=== PATIENT | male | born 1940 | race Caucasian/White ===

== ENCOUNTER 2020-08-25 14:45 | Inpatient (IN) | payer MEDICARE ==
--- NOTE | 2020-08-25 15:25 | ED ---
Arrhythmia/Palpitations HPI - General Chief Complaint: Arrhythmia/Palpitations Stated Complaint: cardiac issues Source: patient, EMS Mode of arrival: EMS - History of Present Illness Initial Comments: Marybel is a 80y M resents to the emergency department today as a transfer from an outside facility. Patient reports that he has dealt with heart palpitations and irregular heartbeat for nearly his whole life. He states that over the past few days he's had some shortness of breath and swelling in his legs, he notified his primary care physician Dr. Travis about this and was advised to go to the emergency department for evaluation by cardiology. Patient was evaluated an outside emergency department where he was found to have an irregularly irregular tachycardic. Patient was also noted to have some leukocytosis and elevated troponin. Outside facility did not have cardiology availability therefore patient was transferred here for further evaluation. Patient any any chest pain though he does report feeling some shortness of breath with exertion and lower extremity swelling. - Related Data Allergies Allergy/AdvReac Type Severity Reaction Status Date / Time Zwddeoq-Cig-Hck Reductase Allergy Unknown Verified 08/25/20 15:15 Inhibitor Review of Systems ROS Statement: Those systems with pertinent positive or pertinent negative responses have been documented in the HPI. ROS Other: All systems not noted in ROS Statement are negative. Past Medical History Past Medical History: Diabetes Mellitus, Hyperlipidemia, Hypertension Additional Past Medical History / Comment(s): irregular heart rate, erectile dis function History of Any Multi-Drug Resistant Organisms: None Reported Past Surgical History: Adenoidectomy, Appendectomy, Tonsillectomy Past Psychological History: No Psychological Hx Reported Smoking Status: Never smoker Past Alcohol Use History: Occasional Past Drug Use History: None Reported General Exam - General Exam Comments Initial Comments: Physical Exam GENERAL: Patient is well-developed and well-nourished. Patient is nontoxic and well- hydrated and is in no distress. HENT: Normocephalic, Atraumatic. EYES: PERRL, EOMI PULMONARY: Unlabored respirations. No audible rales rhonchi or wheezing was noted. CARDIOVASCULAR: Irregularly irregular tachycardic ABDOMEN: Soft and nontender with normal bowel sounds. SKIN: Well-healing abrasion on the right lopez : Deferred NEUROLOGIC: Patient is alert and oriented x3. Moving all extremities spontaneously MUSCULOSKELETAL: Normal extremities with adequate strength and full range of motion. No lower extremity swelling or edema. No calf tenderness. PSYCHIATRIC: Normal psychiatric evaluation. Course Vital Signs 08/25/20 08/25/20 14:57 15:12 Temperature 98.0 F Pulse Rate 118 H Pulse Rate [ 115 H Supervisor Policy Change [employer]erks ] Respiratory 18 Rate Blood Pressure 99/86 O2 Sat by Pulse 97 Oximetry EKG Findings - EKG Comments: EKG Findings:: EKG was obtained due to arrhythmia, EKG was obtained at 1500, rate is 114 rhythm is narrow complex irregular rhythm with frequent PVCs, there are no acute ST elevations or depressions no evidence of acute infarction. This is a grossly abnormal rhythm. Medical Decision Making - Medical Decision Making The patient was seen and evaluated, history is obtained from the patient, he wou ld, repeat labs were obtained, patient care was discussed with cardiology on- call Dr. Moore who recommends heparinizing, beta blockers and admission for cardiac monitoring and evaluation. Patient is agreeable to this plan. Disposition Clinical Impression: Atrial fibrillation, Ventricular tachycardia Disposition: ADMITTED IP TO THIS HOSP Condition: Serious Is patient prescribed a controlled substance at d/c from ED?: No Referrals: Hiren Travis MD [Primary Care Provider] - 1-2 days
[2020-08-25 15:28] LABS: HCT 51.6 % (39.0-53.0); MCH 31.1 pg (25.0-35.0); Mean Platelet Volume 9.2; Platelet Count 150 k/uL (150-450); RBC 5.48 m/uL (4.30-5.90)
[2020-08-25] MEDS ORDERED: AMIODARONE 360 MG in DEXTROSE 5% IN WATER 200 ML IV ONE ×2 (15:30)
[2020-08-25 15:39] LABS: ALT 51 U/L (4-49); AST 50 U/L (17-59); African American GFR (CKD) >90 (>60 ml/min/1.73 sqM); Albumin 4.6 g/dL (3.5-5.0); Alkaline Phosphatase 88 U/L (38-126); Anion Gap 11 mmol/L; Blood Urea Nitrogen 25 mg/dL (9-20); Calcium 9.6 mg/dL (8.4-10.2); Carbon Dioxide 26 mmol/L (22-30); Chloride 103 mmol/L (98-107); Glucose 130 mg/dL (74-99); Magnesium 2.1 mg/dL (1.6-2.3); Non-African American GFR(CKD) 79 (>60 ml/min/1.73 sqM); Potassium 4.6 mmol/L (3.5-5.1); Sodium 140 mmol/L (137-145); Total Bilirubin 0.7 mg/dL (0.2-1.3); Total Protein 7.3 g/dL (6.3-8.2)
[2020-08-25 15:50] LABS: Partial Thromboplastin Time 25.6 sec (22.0-30.0); Prothrombin Time 10.6 sec (9.0-12.0)
[2020-08-25 16:01] LABS: Lymphocytes # (M) 13.86 k/uL (1.0-4.8); Monocytes # (M) 0.21 k/uL (0-1.0); Neutrophils # (M) 6.93 k/uL (1.3-7.7); Neutrophils % (M) 33 %; Nucleated Red Blood Cells 0 /100 WBC (0-0); Total Cells Counted 100
[2020-08-25 16:05] LABS: Poikilocytosis (M) Present; Reactive Lymphocytes Present
[2020-08-25] MEDS ORDERED: METOPROLOL TARTRATE 25 MG TAB PO STA (16:21)
[2020-08-25] MEDS ORDERED: HEPARIN SODIUM 1,000 UN/ML (10ML VL) IV PRN (16:41)
[2020-08-25] MEDS ORDERED: HEPARIN SODIUM 1,000 UN/ML (10ML VL) IV ONE (16:41)
[2020-08-25] MEDS ORDERED: HEPARIN SOD,PORK IN 0.45% NACL 25,000 UNIT in 0.45% NACL 1 250ML.BAG IV SCH (16:45)
[2020-08-25] MEDS ORDERED: NALOXONE 0.4 MG/ML 1 ML VIAL IV PRN (16:55)
[2020-08-25] MEDS ORDERED: ACETAMINOPHEN TAB 500 MG TAB PO PRN (20:07)
[2020-08-25] MEDS ORDERED: HYDROcodone/APAP 5-325MG 1 EACH TAB PO PRN (20:07)
[2020-08-25] MEDS ORDERED: ALPRAZolam 0.25 MG TAB PO PRN (20:07)
[2020-08-25 20:31] LABS: Glucose,Whole Blood 115 mg/dL (75-99)
[2020-08-25] MEDS: INSULIN ASPART (NovoLOG) 100 UNIT/ML VIAL SQ SCH (20:44)
--- NOTE | 2020-08-25 20:49 | XR ---
EXAMINATION TYPE: XR chest 1V portable DATE OF EXAM: 08/25/2020 COMPARISON: Earlier same day HISTORY: Chest pain. TECHNIQUE: Single frontal view of the chest is obtained. FINDINGS: There is no focal air space opacity, pleural effusion, or pneumothorax seen. The cardiac silhouette size is mildly enlarged. The osseous structures are intact. IMPRESSION: No acute process.
[2020-08-25] MEDS ORDERED: lisinopriL 20 MG TAB PO SCH (21:00)
[2020-08-25] MEDS: metFORMIN 500 MG TAB PO SCH (21:03)
[2020-08-25] MEDS: ASPIRIN 81 MG PO SCH (21:03)
--- NOTE | 2020-08-25 21:05 | HP ---
HISTORY AND PHYSICAL DATE OF SERVICE: 08/25/2020 CHIEF COMPLAINT: Cardiac arrhythmia. HISTORY OF PRESENT ILLNESS: This 80-year-old gentleman with a past medical history of diabetes, hypertension, hyperlipidemia, adenoidectomy, being followed by Dr. Hiren Travis. The patient previously had an irregular heart rate. Patient evaluated by cardiology. Apparently beta blockers given and the patient improved significantly. Currently the patient complaining of some shortness of breath, palpitation, as well as leg swelling. The patient checked with primary physician and subsequently patient sent to [facility] ED and was evaluated. The patient was suspected to have ventricular tachycardia and the patient was sent to [facility] for further evaluation and treatment. There is no history of fever, rigors. No headache, loss of consciousness, seizures. The current EKG shows apparent sinus mechanism with possible multifocal atrial tachycardia as well as PVCs. There is no history of fever, rigors, chills at this time. PAST MEDICAL HISTORY: Diabetes mellitus, hypertension, hyperlipidemia, history of irregular heartbeat. MEDICATIONS: Glucophage, HydroDIURIL, magnesium oxide, zyloprim,Vasotec. FAMILY HISTORY: No history of heart disease or strokes in the family. SOCIAL HISTORY: No history of smoking. Occasional alcohol intake. REVIEW OF SYSTEMS: ENT: Diminished vision. CARDIOVASCULAR SYSTEM: As mentioned earlier. GI: No nausea or vomiting. : No dysuria. NERVOUS SYSTEM: No numbness or weakness. ALLERGY/IMMUNOLOGY: No asthma or hay fever. MUSCULOSKELETAL: As mentioned earlier. HEMATOLOGY/ONCOLOGY: No history of anemia. DERMATOLOGY: Negative. CONSTITUTIONAL: As mentioned. PHYSICAL EXAMINATION: Alert oriented x3. Pulse 118 and irregular. Blood pressure is 103/67, respirations 18, temperature 98.4, pulse ox 94% on 2 L HEENT: Conjunctivae normal. NECK: Supple. No JVD. CARDIOVASCULAR: S1 and S2 muffled. RESPIRATORY: Breath sounds diminished at the bases. No rhonchi no crackles. ABDOMEN: Soft, nontender, obese. NERVOUS SYSTEM: Higher functions as mentioned. LYMPH: No lymph nodes palpable in the neck, axillae or groin. SKIN: No rash. JOINTS: No active deforming arthropathy. LABS: At this time shows WBC 21, sodium 140, potassium 4.6 and glucose 130. ASSESSMENT: 1. Cardiac arrhythmia, possibly multifocal PACs with PVCs, rule out ventricular tachycardia. 2. Increased WBC. 3. Increased random glucoses, diabetes type 2. 4. Rule out congestive heart failure. 5. Hypertension. 6. Hyperlipidemia. 7. History of adenoidectomy. 8. History of appendectomy. 9. Obesity with body mass of 34. RECOMMENDATIONS: In this 80-year-old gentleman who presented with multiple complex medical issues, we will monitor the patient closely continue the current management and symptomatic treatment. Will initiate beta blockers. Cardiology consultation. Otherwise prognosis guarded because of multiple complex medical issues. Further recommendations to follow. A 2D echo also has been completed and cardiac workup also being planned. Troponins are negative so far. BNP is not available. MMODL / IJN: [id number] /
[2020-08-26 02:46] LABS: Appearance,Urine Clear (Clear); Bilirubin,Urine Negative (Negative); Blood,Urine Negative (Negative); Color,Urine Yellow; Glucose,Urine (UA) Negative (Negative); Ketones,Urine Negative (Negative); Leukocyte Esterase,Urine Negative (Negative); Nitrite,Urine Negative (Negative); Protein,Urine Negative (Negative); Specific Gravity,Urine 1.023 (1.001-1.035); Urobilinogen,Urine <2.0 mg/dL (<2.0)
[2020-08-26 06:00] LABS: Glucose,Whole Blood 105 mg/dL (75-99)
[2020-08-26] MEDS: INSULIN ASPART (NovoLOG) 100 UNIT/ML VIAL SQ SCH ×4 (06:00→20:05)
[2020-08-26 08:12] LABS: HGB 16.8 gm/dL (13.0-17.5); MCH 31.6 pg (25.0-35.0); MCV 95.7 fL (80.0-100.0); Platelet Count 123 k/uL (150-450); RBC 5.33 m/uL (4.30-5.90); RDW 13.1 % (11.5-15.5); WBC 20.6 k/uL (3.8-10.6)
[2020-08-26 08:13] LABS: Partial Thromboplastin Time 29.5 sec (22.0-30.0); Prothrombin Time 10.9 sec (9.0-12.0)
[2020-08-26 08:34] LABS: Calcium 9.5 mg/dL (8.4-10.2); Potassium 5.2 mmol/L (3.5-5.1)
[2020-08-26] MEDS ORDERED: allopurinoL 300 MG TAB PO SCH (09:00)
[2020-08-26] MEDS ORDERED: hydroCHLOROthiazide 25 MG TAB PO SCH (09:00)
[2020-08-26 09:06] LABS: Eosinophils # (M) 0.21 k/uL (0-0.7); Lymphocytes # (M) 12.77 k/uL (1.0-4.8); Monocytes # (M) 1.03 k/uL (0-1.0); Neutrophils % (M) 33 %; Nucleated Red Blood Cells 0 /100 WBC (0-0); Total Cells Counted 200
[2020-08-26] MEDS: MAGNESIUM OXIDE 400 MG TAB PO SCH (09:26)
[2020-08-26] MEDS: metFORMIN 500 MG TAB PO SCH ×2 (09:26→20:13)
[2020-08-26] MEDS: EZETIMIBE 10 MG TAB PO SCH (09:27)
--- NOTE | 2020-08-26 11:38 | ECHOF ---
Referral Reason:chf MEASUREMENTS -------- HEIGHT: 182.9 cm WEIGHT: 120.7 kg BP: 103/57 IVSd: 1.3 cm (0.6 - 1.1) LVIDd: 4.5 cm (3.9 - 5.3) LVPWd: 1.5 cm (0.6 - 1.1) IVSs: 1.5 cm LVIDs: 3.6 cm LVPWs: 1.3 cm LAESV Index (A-L): 45.45 ml/m Ao Diam: 4.1 cm (2.0 - 3.7) AV Cusp: 1.9 cm (1.5 - 2.6) LA Diam: 4.9 cm (2.7 - 3.8) RAP: 5.00 mmHg RVSP: 49.47 mmHg FINDINGS -------- Undetermined rhythm. This was a technically adequate study. Morbid Obesity The left ventricular size is normal. There is mild concentric left ventricular hypertrophy. Overa ll left ventricular systolic function is mildly impaired with, an EF between 45 - 50 %. The right ventricle is normal in size. LA is severely dilated >40 ml/m2 The right atrial size is normal. There is mild aortic valve sclerosis. Mild mitral annular calcification present. Mild mitral regurgitation is present. Mild tricuspid regurgitation present. Right ventricular systolic pressure is normal at < 35 mmHg. There is no pulmonic regurgitation present. The aortic root size is normal. There is no pericardial effusion. CONCLUSIONS -------- 1. The left ventricular size is normal. 2. There is mild concentric left ventricular hypertrophy. 3. Overall left ventricular systolic function is mildly impaired with, an EF between 45 - 50 %. 4. The right ventricle is normal in size. 5. LA is severely dilated >40 ml/m2 6. The right atrial size is normal. 7. There is mild aortic valve sclerosis. 8. Mild mitral annular calcification present. 9. Mild mitral regurgitation is present. 10. Mild tricuspid regurgitation present. 11. The aortic root size is normal. 12. There is no pericardial effusion. [employer]: Delia Sanches RDCS
[2020-08-26 11:45] LABS: Glucose,Whole Blood 119 mg/dL (75-99)
--- NOTE | 2020-08-26 12:01 | P.CRDCN ---
<Anabell Bertrand Armando - Last Filed: 08/26/20 12:00> History of Present Illness Consult date: 08/26/20 History of present illness: HISTORY OF PRESENT ILLNESS: This is a 80-year-old male with a past medical history significant for irregular heart rhythm, hyperlipidemia, and hypertension. Patient used to follow in the office with Dr. Mallory but has not been seen in the office since 2014. We have been asked to see the patient in consultation for arrhythmia. Patient examined at the bedside. Patient states he has had an irregular heart rhythm all of his life and has been pretty much asymptomatic with it. He states he has had multiple EKGs in the past and a Holter monitor which have never shown evidence of atrial fibrillation. He states about a month ago he developed some shortness of breath with exertion which was new for him. He also reports this weekend he felt palpitations worse than normal. He states he went to see his primary care physician on Tuesday who did an EKG and was concerned she was having ventricular tachycardia and possibly atrial fibrillation. He went to the hospital near his [facility] and was transferred to [facility] for further evaluation. Patient currently denies chest pain or pressure. He denies shortness of breath. Currently denies palpitations. Patient states he used to be on a beta christiane secondary to his irregular heart rhythm. He states this was weaned off a couple years ago. He does report when he was on a beta christiane his heart rate was low when he was sleeping. Patient states he has never been worked up for sleep apnea but he believes he probably has it. EKG reveals sinus mechanism with PVCs and bursts of multifocal atrial tachycardia Chest xray negative for acute process Laboratory data: WBC 20.6. Hemoglobin 16.8. Platelet count 123. Sodium 138. Potassium 5.2. BUN 25. Creatinine 1.01. Troponin 0.027. BNP 629. Current home cardiac medications include aspirin 81 mg daily, hydrochlorothi azide 25 mg daily, Zetia 10 mg daily, and enalapril 10 mg daily Most recent echocardiogram obtained in 2013 revealed ejection fraction 60% with mild tricuspid regurgitation and mild mitral regurgitation REVIEW OF SYSTEMS: At the time of my exam: CONSTITUTIONAL: Denies fever or chills. HEENT: Denies blurred vision, vision changes, or eye pain. Denies hemoptysis CARDIOVASCULAR: Denies chest pain. Denies orthopnea. Denies PND. Denies palpitations RESPIRATORY: Denies shortness of breath. GASTROINTESTINAL: Denies abdominal pain. Denies nausea or vomiting. HEMATOLOGIC: Denies bleeding disorders. GENITOURINARY: Denies any blood in urine. SKIN: Denies pruitis. Denies rash. PHYSICAL EXAM: VITAL SIGNS: Reviewed. GENERAL: Well-developed in no acute distress. HEENT: Head is normocephalic. Pupils are equal, round. Sclerae anicteric. Mucous membranes of the mouth are moist. Neck supple. No JVD or thyromegaly LUNGS: Respirations even and unlabored. Lungs essentially clear to auscultation bilaterally. HEART: Irregular rate and rhythm. S1 and S2 heard. ABDOMEN: Soft. Nondistended. Nontender. EXTREMITIES: Normal range of motion. No clubbing or cyanosis. Peripheral pulses intact. No lower extremity edema NEUROLOGIC: Awake and alert. Oriented x 3. ASSESSMENT: Cardiac arrhythmia, sinus mechanism with PVCs and multifocal atrial tachycardia Leukocytosis Hypertension Hyperlipidemia Diabetes mellitus PLAN: Check TSH Continue home cardiac medications No beta christiane therapy at this time Discontinue IV heparin Obtain 2D echo to assess cardiac structure and function If decreased EF, will consider coronary angiogram tomorrow. Nothing by mouth at midnight Further recommendations pending patient course Nurse practitioner note has been reviewed by physician. Signing provider agrees with the documented findings, assessment, and plan of care. Past Medical History Past Medical History: Diabetes Mellitus, Deep Vein Thrombosis (DVT), Hyperlipidemia, Hypertension Additional Past Medical History / Comment(s): DVT - 1996, irregular heart rhythm History of Any Multi-Drug Resistant Organisms: None Reported Past Surgical History: Adenoidectomy, Appendectomy, Tonsillectomy Past Psychological History: No Psychological Hx Reported Smoking Status: Never smoker Past Alcohol Use History: Occasional Past Drug Use History: None Reported Medications and Allergies Home Medications Medication Instructions Recorded Confirmed Type Aspirin EC [Ecotrin Low Dose] 81 mg PO HS 08/25/20 08/25/20 History Enalapril Maleate [Vasotec] 10 mg PO HS 08/25/20 08/25/20 History Ezetimibe [Zetia] 10 mg PO DAILY 08/25/20 08/25/20 History Magnesium Oxide [Mag-Ox] 400 mg PO DAILY 08/25/20 08/25/20 History allopurinoL [Zyloprim] 300 mg PO DAILY 08/25/20 08/25/20 History hydroCHLOROthiazide [Hydrodiuril] 25 mg PO DAILY 08/25/20 08/25/20 History metFORMIN HCL ER [Glucophage Xr] 500 mg PO BID 08/25/20 08/25/20 History Allergies Allergy/AdvReac Type Severity Reaction Status Date / Time [id number] Reductase AdvReac "muscle Verified 08/25/20 16:23 Inhibitor pain/soreness" Physical Exam Vitals: Vital Signs Temp Pulse Pulse Resp BP BP Pulse Ox 08/26/20 08:00 97.9 F 49 L 16 146/71 93 L 08/26/20 03:58 97.9 F 57 L 18 103/57 98 08/26/20 00:58 54 L 16 08/25/20 23:22 98.1 F 54 L 16 116/69 95 08/25/20 20:00 75 16 08/25/20 19:01 98.4 F 75 16 119/74 99 08/25/20 18:22 73 18 103/67 93 L 08/25/20 17:50 97.7 F 69 18 120/50 93 L 08/25/20 17:28 118 H 18 103/67 94 L 08/25/20 16:28 106 H 18 129/98 96 08/25/20 15:12 115 H 08/25/20 14:57 98.0 F 118 H 18 99/86 97 Intake and Output 08/25/20 08/26/20 08/26/20 22:59 06:59 14:59 Output Total 200 Balance -200 Output: Urine 200 Other: Voiding Method Toilet Toilet # Voids 0 1 Weight 120.202 kg 120.7 kg Results 08/26/20 07:27 08/26/20 07:27 Cardiac Enzymes 08/25/20 08/25/20 Range/Units 15:15 15:15 AST 50 (17-59) U/L Troponin I 0.027 (0.000-0.034) ng/mL Coagulation 08/25/20 08/26/20 08/26/20 Range/Units 15:15 00:17 07:27 PT 10.6 10.9 (9.0-12.0) sec APTT 25.6 43.3 H 29.5 (22.0-30.0) sec CBC 08/25/20 08/26/20 Range/Units 15:15 07:27 WBC 21.0 H 20.6 H (3.8-10.6) k/uL RBC 5.48 5.33 (4.30-5.90) m/uL Hgb 17.0 16.8 (13.0-17.5) gm/dL Hct 51.6 51.0 (39.0-53.0) % Plt Count 150 123 L (150-450) k/uL Comprehensive Metabolic Panel 08/25/20 08/26/20 Range/Units 15:15 07:27 Sodium 140 138 (137-145) mmol/L Potassium 4.6 5.2 H (3.5-5.1) mmol/L Chloride 103 102 (98-107) mmol/L Carbon Dioxide 26 29 (22-30) mmol/L BUN 25 H 25 H (9-20) mg/dL Creatinine 0.93 1.01 (0.66-1.25) mg/dL Glucose 130 H 119 H (74-99) mg/dL Calcium 9.6 9.5 (8.4-10.2) mg/dL AST 50 (17-59) U/L ALT 51 H (4-49) U/L Alkaline Phosphatase 88 (38-126) U/L Total Protein 7.3 (6.3-8.2) g/dL Albumin 4.6 (3.5-5.0) g/dL Current Medications Generic Name Dose Route Start Last Admin Trade Name Freq PRN Reason Stop Dose Admin Acetaminophen 500 mg 08/25/20 20:07 Acetaminophen Tab 500 Mg Tab PO Q6HR PRN Fever and/ or Pain Hydrocodone Bitart/Acetaminophen 1 each 08/25/20 20:07 Hydrocodone/Apap 5-325mg 1 Each Tab PO Q6HR PRN Pain Allopurinol 300 mg 08/26/20 09:00 Allopurinol 300 Mg Tab PO DAILY LUIS Alprazolam 0.25 mg 08/25/20 20:07 Alprazolam 0.25 Mg Tab PO TID PRN Anxiety Aspirin 81 mg 08/25/20 21:00 08/25/20 21:03 Aspirin 81 Mg PO 81 mg HS LUIS Administration Ezetimibe 10 mg 08/26/20 09:00 Ezetimibe 10 Mg Tab PO DAILY [facility] Heparin Sodium (Porcine) 0 unit 08/25/20 16:41 Heparin Sodium 1,000 Un/Ml (10ml Vl) IV PER PROTOCOL PRN Low PTT Protocol Hydrochlorothiazide 25 mg 08/26/20 09:00 Hydrochlorothiazide 25 Mg Tab PO DAILY [facility] Heparin Sodium/Sodium Chloride 250 mls @ 9.989 mls/hr 08/25/20 16:45 08/25/20 18:14 25,000 unit/ Sodium Chloride IV 8.31 units/kg/hr .Q24H [facility]IS 9.989 mls/hr Administration Protocol 8.31 UNITS/KG/HR Insulin Aspart 0 unit 08/25/20 21:00 08/26/20 06:00 Insulin Aspart (Novolog) 100 Unit/Ml Vial SQ Not Given ACHS [facility] Protocol Lisinopril 20 mg 08/25/20 21:00 08/25/20 21:03 Lisinopril 20 Mg Tab PO 20 mg HS LUIS Administration Magnesium Oxide 400 mg 08/26/20 09:00 Magnesium Oxide 400 Mg Tab PO DAILY [facility] Metformin HCl 500 mg 08/25/20 21:00 08/25/20 21:03 Metformin 500 Mg Tab PO 500 mg BID LUIS Administration Naloxone HCl 0.2 mg 08/25/20 16:55 Naloxone 0.4 Mg/Ml 1 Ml Vial IV Q2M PRN Opioid Reversal Intake and Output 08/25/20 08/26/20 08/26/20 22:59 06:59 14:59 Output Total 200 Balance -200 Output: Urine 200 Other: Voiding Method Toilet Toilet # Voids 0 1 Weight 120.202 kg 120.7 kg 08/26/20 07:27 08/26/20 07:27 <Tristan Moore - Last Filed: 08/28/20 19:14> History of Present Illness History of present illness: Recurrent bursts of atrial tachycardia Frequent PVCs Hypertension Diabetes Dyslipidemia Cardio myopathy Plan coronary angiography Medical treatment with oral amiodarone for suppression of arrhythmia Past Medical History - Past Family History Mother Family Medical History: Congestive Heart Failure (CHF) Father Family Medical History: CVA/TIA Physical Exam Vitals: Vital Signs Temp Pulse Resp BP BP Pulse Ox 08/28/20 16:05 66 149/73 91 L 08/28/20 15:05 97.9 F 71 153/82 93 L 08/28/20 14:05 71 165/84 92 L 08/28/20 14:00 20 08/28/20 13:35 63 130/74 90 L 08/28/20 13:05 65 144/81 90 L 08/28/20 12:50 103 H 176/77 92 L 08/28/20 12:35 78 163/112 94 L 08/28/20 12:20 98 F 71 20 167/101 94 L 08/28/20 08:00 98.5 F 65 18 150/89 93 L 08/28/20 04:00 98.2 F 69 20 169/85 92 L 08/28/20 01:47 71 20 08/27/20 23:58 97.8 F 71 20 109/47 92 L 08/27/20 20:00 98.5 F 87 18 133/83 94 L Intake and Output 08/28/20 08/28/20 08/28/20 06:59 14:59 22:59 Intake Total 340 240 Output Total 400 350 Balance -400 -10 240 Intake: IV 100 Oral 240 240 Output: Urine 400 350 Other: Voiding Method Toilet Toilet # Voids 1 Weight 119.2 kg Results 08/28/20 15:44 08/28/20 15:44 Cardiac Enzymes 08/28/20 Range/Units 15:44 AST 51 (17-59) U/L Coagulation 08/28/20 Range/Units 17:44 PT 11.1 (9.0-12.0) sec APTT 24.6 (22.0-30.0) sec CBC 08/28/20 Range/Units 15:44 WBC 20.0 H (3.8-10.6) k/uL RBC 5.29 (4.30-5.90) m/uL Hgb 16.1 (13.0-17.5) gm/dL Hct 50.9 (39.0-53.0) % Plt Count 151 (150-450) k/uL Comprehensive Metabolic Panel 08/28/20 Range/Units 15:44 Sodium 139 (137-145) mmol/L Potassium 5.4 H (3.5-5.1) mmol/L Chloride 101 (98-107) mmol/L Carbon Dioxide 30 (22-30) mmol/L BUN 21 H (9-20) mg/dL Creatinine 1.14 (0.66-1.25) mg/dL Glucose 121 H (74-99) mg/dL Calcium 9.2 (8.4-10.2) mg/dL AST 51 (17-59) U/L ALT 58 H (4-49) U/L Alkaline Phosphatase 65 (38-126) U/L Total Protein 6.4 (6.3-8.2) g/dL Albumin 3.9 (3.5-5.0) g/dL Current Medications Generic Name Dose Route Start Last Admin Trade Name Freq PRN Reason Stop Dose Admin Acetaminophen 500 mg 08/25/20 20:07 Acetaminophen Tab 500 Mg Tab PO Q6HR PRN Fever and/ or Pain Hydrocodone Bitart/Acetaminophen 1 each 08/25/20 20:07 Hydrocodone/Apap 5-325mg 1 Each Tab PO Q6HR PRN Pain Allopurinol 300 mg 08/26/20 21:00 08/27/20 19:47 Allopurinol 300 Mg Tab PO 300 mg HS LUIS Administration Alprazolam 0.25 mg 08/25/20 20:07 Alprazolam 0.25 Mg Tab PO TID PRN Anxiety Alprazolam 0.25 mg 08/27/20 11:58 Alprazolam 0.25 Mg Tab PO Q6HR PRN Mild Anxiety Alprazolam 0.5 mg 08/27/20 11:58 Alprazolam 0.5 Mg Tab PO Q6HR PRN Moderate Anxiety Amiodarone HCl 200 mg 08/27/20 09:06 08/28/20 16:35 Amiodarone 200 Mg Tab PO 200 mg TID LUIS Administration Aspirin 81 mg 08/25/20 21:00 08/27/20 19:47 Aspirin 81 Mg PO 81 mg HS LUIS Administration Aspirin 325 mg 08/29/20 05:00 Aspirin 325 Mg Tab PO 08/29/20 05:01 ONCE ONE Atorvastatin Calcium 10 mg 08/29/20 05:00 Atorvastatin 10 Mg Tab PO 08/29/20 05:01 ONCE ONE Calcium Chloride 1,000 mg 08/29/20 05:00 Calcium Chloride 100 Mg/Ml 10 Ml Syringe IVP 08/29/20 05:01 ONCE ONE Chlorhexidine Gluconate 15 ml 08/29/20 05:00 Chlorhexidine Gluconate 15 Ml Cup MUCOUS MEM 08/29/20 05:01 ONCE ONE Ezetimibe 10 mg 08/26/20 09:00 08/28/20 05:50 Ezetimibe 10 Mg Tab PO 10 mg DAILY [facility] Administration Furosemide 40 mg 08/27/20 09:00 08/28/20 04:26 Furosemide 40 Mg Tab PO Not Given DAILY [facility] Heparin Sodium (Porcine) 5,000 unit 08/26/20 21:00 08/28/20 05:49 Heparin Sodium,Porcine/Pf 5,000 Unit/0.5 Ml Syringe SQ 5,000 unit Q12HR [facility] Administration Heparin Sodium (Porcine) 10,000 unit 08/29/20 05:00 Heparin Sodium 1,000 Un/Ml (10ml Vl) IV 08/29/20 05:01 ONCE ONE Heparin Sodium (Porcine) 30,000 unit 08/29/20 05:00 Heparin Sodium,Porcine 30 Ml 1,000 Unit/Ml Vial IV 08/29/20 05:01 ONCE ONE Heparin Sodium (Porcine) 30,000 unit 08/29/20 05:00 Heparin Sodium,Porcine 30 Ml 1,000 Unit/Ml Vial IV 08/29/20 05:01 ONCE ONE Heparin Sodium (Porcine) 30,000 unit 08/29/20 05:00 Heparin Sodium,Porcine 30 Ml 1,000 Unit/Ml Vial IV 08/29/20 05:01 ONCE ONE Heparin Sodium (Porcine) 10, 1,001 mls @ 999 mls/hr 08/28/20 07:00 000 unit/ Sodium Chloride IRRIGATION 08/28/20 23:00 ONCE PRN INTRA-OP Heparin Sodium (Porcine) 2,500 250.5 mls @ 250 mls/hr 08/28/20 07:00 unit/ Sodium Chloride IRRIGATION 08/28/20 23:00 ONCE PRN INTRA-OP Heparin Sodium (Porcine) 5,000 501 mls @ 0 mls/hr 08/29/20 05:00 unit/ Sodium Chloride IV 08/29/20 05:01 ONCE ONE As Directed Protamine Sulfate 250 mg/ IV 25 mls @ 0 mls/hr 08/29/20 05:00 Solution IV 08/29/20 05:01 ONCE ONE As Directed Nitroglycerin/Dextrose 50 mg/ 250 mls @ 1.5 mls/hr 08/29/20 05:00 IV Solution IV .Q24H [facility] Protocol 5 MCG/MIN Albumin Human 50 ml/ IV 50 mls @ 100 mls/hr 08/29/20 05:00 Solution IVPB 08/29/20 05:29 ONCE ONE Albumin Human 50 ml/ IV 50 mls @ 100 mls/hr 08/29/20 05:00 Solution IVPB 08/29/20 05:29 ONCE ONE Clevidipine 25 mg/ IV Solution 50 mls @ 2 mls/hr 08/29/20 05:00 IV .Q24H [facility] Protocol 1 MG/HR Phenylephrine HCl 40 mg/ 254 mls @ 0 mls/hr 08/29/20 05:00 Sodium Chloride IV 08/29/20 05:01 .Q0M ONE Protocol Per Protocol Albumin Human 500 ml/ IV 500 mls @ 250 mls/hr 08/29/20 05:00 Solution IVPB 08/29/20 06:59 ONCE ONE Albumin Human 500 ml/ IV 500 mls @ 250 mls/hr 08/29/20 05:00 Solution IVPB 08/29/20 06:59 ONCE ONE Albumin Human 500 ml/ IV 500 mls @ 250 mls/hr 08/29/20 05:00 Solution IVPB 08/29/20 06:59 ONCE ONE Albumin Human 500 ml/ IV 500 mls @ 250 mls/hr 08/29/20 05:00 Solution IVPB 08/29/20 06:59 ONCE ONE Albumin Human 500 ml/ IV 500 mls @ 250 mls/hr 08/29/20 05:00 Solution IVPB 08/29/20 06:59 ONCE ONE Albumin Human 500 ml/ IV 500 mls @ 250 mls/hr 08/29/20 05:00 Solution IVPB 08/29/20 06:59 ONCE ONE Norepinephrine Bitartrate 4 mg 254 mls @ 0 mls/hr 08/29/20 05:00 / Sodium Chloride IV .Q0M [facility] Protocol Titrate Propofol 1,000 mg/ IV Solution 100 mls @ 0 mls/hr 08/29/20 05:00 IV .Q0M PRN Per Protocol Protocol Titrate Lactated Ringer's 1,000 mls @ 10 mls/hr 08/29/20 05:00 Lactated Ringers IV .Q24H [facility] Cefazolin Sodium 2 gm/ Sodium 50 mls @ 100 mls/hr 08/29/20 05:00 Chloride IVPB 08/29/20 05:29 ONCE ONE Cefazolin Sodium 1,000 mg/ 1,000 mls @ 999 mls/hr 08/29/20 05:00 Sodium Chloride IRRIGATION 08/29/20 06:00 ONCE ONE Cefazolin Sodium 2 gm/ Sodium 50 mls @ 100 mls/hr 08/29/20 05:00 Chloride IVPB 08/29/20 05:29 ONCE ONE Sodium Bicarbonate 20 ml/ 1,033.5 mls @ 0 mls/hr 08/29/20 06:00 Lidocaine HCl 270 mg/ Plegisol PERFUSION 08/29/20 06:01 Cardioplegic Solution .Q0M NR Protocol Per Protocol Tranexamic Acid 2,000 mg/ 200 mls @ 0 mls/hr 08/29/20 05:00 Sodium Chloride IV 08/29/20 05:01 .Q0M ONE Protocol Per Protocol Papaverine HCl 360 mg/ Sodium 102 mls @ 0 mls/hr 08/29/20 05:00 Chloride IV 08/29/20 05:01 ONCE ONE As Directed Insulin Human Regular 100 unit 100 mls @ 0 mls/hr 08/29/20 06:00 / Sodium Chloride IV 08/29/20 06:01 .Q0M [facility] Protocol Titrate Insulin Aspart 0 unit 08/25/20 21:00 08/28/20 18:42 Insulin Aspart (Novolog) 100 Unit/Ml Vial SQ Not Given ACHS [facility] Protocol Magnesium Oxide 400 mg 08/26/20 09:00 08/28/20 05:49 Magnesium Oxide 400 Mg Tab PO 400 mg DAILY [facility] Administration Magnesium Sulfate 16.24 meq 08/29/20 05:00 Magnesium Sulfate Syg 4.06 Meq/Ml Syringe IV 08/29/20 05:01 ONCE ONE Mannitol 12.5 gm 08/29/20 05:00 Mannitol 25% 12.5 Gm/50 Ml Vial IV 08/29/20 05:01 ONCE ONE Mannitol 12.5 gm 08/29/20 05:00 Mannitol 25% 12.5 Gm/50 Ml Vial IV 08/29/20 05:01 ONCE ONE Miscellaneous Information 1 each 08/28/20 12:12 Rx Info: Iv Contrast Was Given 1 Each Misc MISCELLANE 08/30/20 12:12 DAILY PRN Per Protocol Mupirocin 1 applic 08/29/20 09:00 Mupirocin 2% Oint 22 Gm Tube NASAL 09/02/20 09:01 BID LUIS Naloxone HCl 0.2 mg 08/25/20 16:55 Naloxone 0.4 Mg/Ml 1 Ml Vial IV Q2M PRN Opioid Reversal Nitroglycerin 0.4 mg 08/27/20 11:58 Nitroglycerin Sl Tabs 0.4 Mg Tab SUBLINGUAL Q5M PRN Chest Pain Nitroglycerin/Dextrose 1 mg 08/29/20 05:00 Nitroglycerin-D5w Pmx 25 Mg/250 Ml Btl IV 08/29/20 05:01 ONCE ONE Phenylephrine HCl 0 mg 08/29/20 06:00 Phenylephrine 10 Mg/Ml Vial IV 08/29/20 06:01 ONCE ONE Protamine Sulfate 250 mg 08/29/20 05:00 Protamine Sulfate 10 Mg/Ml 25 Ml Vial IV 08/29/20 05:01 ONCE ONE Sodium Bicarbonate 50 ml 08/29/20 05:00 Sodium Bicarb 8.4% 50 Ml Syr (1 Meq/Ml) IV 08/29/20 05:01 ONCE ONE Intake and Output 08/28/20 08/28/20 08/28/20 06:59 14:59 22:59 Intake Total 340 240 Output Total 400 350 Balance -400 -10 240 Intake: IV 100 Oral 240 240 Output: Urine 400 350 Other: Voiding Method Toilet Toilet # Voids 1 Weight 119.2 kg 08/28/20 15:44 08/28/20 15:44
[2020-08-26 16:42] LABS: Glucose,Whole Blood 106 mg/dL (75-99)
[2020-08-26 20:00] LABS: Glucose,Whole Blood 110 mg/dL (75-99)
[2020-08-26] MEDS: allopurinoL 300 MG TAB PO SCH (20:13)
[2020-08-26] MEDS: ASPIRIN 81 MG PO SCH (20:13)
--- NOTE | 2020-08-26 20:36 | P.PN ---
Subjective 74-year-old male was admitted secondary to arrhythmia which appears to be either multifocal atrial tachycardia PVCs no evidence of atrial fibrillation. Patient had auto mantra in the past which did not show any evidence of A. fib either. Patient was on IV heparin which was discontinued. Patient had EF of around 45- 50% does appear to have my live pedal edema patient will be switched from hydrochlorothiazide to Lasix. Patient is also on ROWAN inhibitor with high normal potassium. Will repeat potassium again after starting him on low potassium diet if it continues to be elevated related to either cut down the dose or discontinue ROWAN inhibitor at that time. Constitutional: Denied any fatigue denied any fever. Cardio vascular: denied any chest pain, palpitations Gastrointestinal denied any nausea vomiting Pulmonary: Denied any shortness of breath cough Neurologic denied any new focal deficits All inpatient medications were reviewed and appropriate changes in these medications as dictated in the interval history and assessment and plan. PHYSICAL EXAMINATION: GENERAL: The patient is alert and oriented x3, not in any acute distress. Well developed, well nourished. HEENT: Pupils are round and equally reacting to light. EOMI. No scleral icterus. No conjunctival pallor. Normocephalic, atraumatic. No pharyngeal erythema. No th yromegaly. CARDIOVASCULAR: S1 and S2 present. No murmurs, rubs, or gallops. PULMONARY: Chest is clear to auscultation, no wheezing or crackles. ABDOMEN: Soft, nontender, nondistended, normoactive bowel sounds. No palpable organomegaly. MUSCULOSKELETAL: No joint swelling or deformity. EXTREMITIES: No cyanosis, clubbing, bilateral bilateral pitting pedal edema NEUROLOGICAL: Gross neurological examination did not reveal any focal deficits. SKIN: No rashes. Assessment and plan -Multifocal atrial tachycardia .IV heparin was discontinued as there is no evidence of atrial fibrillation and patient was started on subcutaneous heparin for DVT prophylaxis. Patient's TSH is within normal limits -Hypertension next and-hyperlipidemia - type 2 diabetes mellitus metformin will be discontinued and patient will be started on sliding scale insulin along with his other home regimen -Congestive heart failure chronic systolic dysfunction EF of around 45-50% with mild acute exacerbation patient will be switched to Lasix from hydrochlorothiazide -Hyperkalemia secondary to ROWAN inhibitor patient was started on low potassium diet if potassium doesn't improve we need to discontinue ROWAN inhibitor at the time DVT prophylaxis: Subcutaneous heparin- Objective - Vital Signs Vital signs: Vital Signs Temp 98.1 F 08/26/20 16:00 Pulse 87 08/26/20 16:00 Resp 16 08/26/20 16:00 BP 134/73 08/26/20 11:51 Pulse Ox 90 L 08/26/20 11:51 Intake & Output 08/26/20 08/26/20 08/27/20 06:59 18:59 06:59 Intake Total 394.663 Output Total 200 Balance -200 394.663 Weight 120.7 kg Intake: Intake, IV Titration 154.663 Amount Heparin Sod,Pork in 0.45% 154.663 NaCl 25,000 unit In 0.45 % NaCl 1 250ml.bag @ 8.31 UNITS/KG/HR 9.989 mls/hr IV .Q24H [facility] Rx#: [id number] Oral 240 Output: Urine 200 Other: Voiding Method Toilet # Voids 3 # Bowel Movements 1 - Labs CBC & Chem 7: 08/26/20 07:27 08/26/20 07:27 Labs: Abnormal Lab Results - Last 24 Hours (Table) 08/25/20 08/26/20 08/26/20 Range/Units 20:30 00:17 05:58 WBC (3.8-10.6) k/uL Plt Count (150-450) k/uL Lymphocytes # (Manual) (1.0-4.8) k/uL Monocytes # (Manual) (0-1.0) k/uL APTT 43.3 H (22.0-30.0) sec Potassium (3.5-5.1) mmol/L BUN (9-20) mg/dL Glucose (74-99) mg/dL POC Glucose (mg/dL) 115 H 105 H (75-99) mg/dL 08/26/20 08/26/20 08/26/20 Range/Units 07:27 07:27 11:43 WBC 20.6 H (3.8-10.6) k/uL Plt Count 123 L (150-450) k/uL Lymphocytes # (Manual) 12.77 H (1.0-4.8) k/uL Monocytes # (Manual) 1.03 H (0-1.0) k/uL APTT (22.0-30.0) sec Potassium 5.2 H (3.5-5.1) mmol/L BUN 25 H (9-20) mg/dL Glucose 119 H (74-99) mg/dL POC Glucose (mg/dL) 119 H (75-99) mg/dL 08/26/20 08/26/20 Range/Units 16:31 19:58 WBC (3.8-10.6) k/uL Plt Count (150-450) k/uL Lymphocytes # (Manual) (1.0-4.8) k/uL Monocytes # (Manual) (0-1.0) k/uL APTT (22.0-30.0) sec Potassium (3.5-5.1) mmol/L BUN (9-20) mg/dL Glucose (74-99) mg/dL POC Glucose (mg/dL) 106 H 110 H (75-99) mg/dL
[2020-08-26] MEDS: HEPARIN SODIUM,PORCINE/PF 5,000 UNIT/0.5 ML SYRINGE SQ SCH (20:54)
[2020-08-26] MEDS ORDERED: INSULIN ASPART (NovoLOG) 100 UNIT/ML VIAL SQ SCH (21:00)
[2020-08-26 22:26] LABS: Potassium 4.6 mmol/L (3.5-5.1)
[2020-08-27] MEDS: INSULIN ASPART (NovoLOG) 100 UNIT/ML VIAL SQ SCH ×4 (06:07→22:04)
[2020-08-27 06:09] LABS: Glucose,Whole Blood 106 mg/dL (75-99)
[2020-08-27 07:43] LABS: HGB 16.6 gm/dL (13.0-17.5); MCHC 32.6 g/dL (31.0-37.0); MCV 95.1 fL (80.0-100.0); Mean Platelet Volume 9.2; Platelet Count 153 k/uL (150-450); RBC 5.36 m/uL (4.30-5.90); RDW 13.2 % (11.5-15.5); WBC 18.5 k/uL (3.8-10.6)
[2020-08-27 08:01] LABS: Calcium 9.7 mg/dL (8.4-10.2)
[2020-08-27] MEDS: FUROSEMIDE 40 MG TAB PO SCH (09:30)
[2020-08-27] MEDS: EZETIMIBE 10 MG TAB PO SCH (09:30)
[2020-08-27] MEDS: AMIODARONE 200 MG TAB PO SCH ×3 (09:30→19:47)
[2020-08-27] MEDS: HEPARIN SODIUM,PORCINE/PF 5,000 UNIT/0.5 ML SYRINGE SQ SCH ×2 (09:30→19:48)
[2020-08-27] MEDS: MAGNESIUM OXIDE 400 MG TAB PO SCH (09:30)
[2020-08-27 11:51] LABS: Glucose,Whole Blood 134 mg/dL (75-99)
--- NOTE | 2020-08-27 11:57 | P.PN ---
Subjective Progress Note Date: 08/27/20 HISTORY OF PRESENT ILLNESS: This is a 80-year-old male with a past medical history significant for irregular heart rhythm, hyperlipidemia, and hypertension. Patient used to follow in the office with Dr. Mallory but has not been seen in the office since 2014. We have been asked to see the patient in consultation for arrhythmia. Patient examined at the bedside. Patient states he has had an irregular heart rhythm all of his life and has been pretty much asymptomatic with it. He states he has had multiple EKGs in the past and a Holter monitor which have never shown evidence of atrial fibrillation. He states about a month ago he developed some shortness of breath with exertion which was new for him. He also reports this weekend he felt palpitations worse than normal. He states he went to see his primary care physician on Tuesday who did an EKG and was concerned she was having ventricular tachycardia and possibly atrial fibrillation. [facility] to the hospital [facility] and was transferred to [facility] for further evaluation. Patient currently denies chest pain or pressure. He denies shortness of breath. Currently denies palpitations. Patient states he used to be on a beta christiane secondary to his irregular heart rhythm. He states this was weaned off a couple years ago. He does report when he was on a beta christiane his heart rate was low when he was sleeping. Patient states he has never been worked up for sleep apnea but he believes he probably has it. EKG reveals sinus mechanism with PVCs and bursts of multifocal atrial tachycardia Chest xray negative for acute process Laboratory data: WBC 20.6. Hemoglobin 16.8. Platelet count 123. Sodium 138. Potassium 5.2. BUN 25. Creatinine 1.01. Troponin 0.027. BNP 629. Current home cardiac medications include aspirin 81 mg daily, hydrochlorothiazide 25 mg daily, Zetia 10 mg daily, and enalapril 10 mg daily Most recent echocardiogram obtained in 2013 revealed ejection fraction 60% with mild tricuspid regurgitation and mild mitral regurgitation 08/27/2020 Patient examined this morning at the bedside. He denies chest pain or pressure. Denies shortness of breath. Telemetry reveals sinus mechanism with PVCs and bursts of multifocal atrial tachycardia. A cardiogram completed revealed ejection fraction 45-50% mild mitral regurgitation and mild tricuspid regurgitation. TSH within normal limits. PHYSICAL EXAM: VITAL SIGNS: Reviewed. GENERAL: Well-developed in no acute distress. HEENT: Head is normocephalic. Pupils are equal, round. Sclerae anicteric. Mucous membranes of the mouth are moist. Neck supple. No JVD or thyromegaly LUNGS: Respirations even and unlabored. Lungs essentially clear to auscultation bilaterally. HEART: Irregular rate and rhythm. S1 and S2 heard. ABDOMEN: Soft. Nondistended. Nontender. EXTREMITIES: Normal range of motion. No clubbing or cyanosis. Peripheral pulses intact. No lower extremity edema NEUROLOGIC: Awake and alert. Oriented x 3. ASSESSMENT: Cardiac arrhythmia, sinus mechanism with PVCs and multifocal atrial tachycardia Leukocytosis Hypertension Hyperlipidemia Diabetes mellitus PLAN: Continue home cardiac medications No beta christiane therapy at this time Begin amiodarone 200 mg 3 times a day Patient will undergo cardiac catheterization tomorrow with Dr. Dietz Further recommendations pending patient course Nurse practitioner note has been reviewed by physician. Signing provider agrees with the documented findings, assessment, and plan of care. Objective - Vital Signs Vital signs: Vital Signs Temp 98.4 F 08/27/20 07:40 Pulse 80 08/27/20 11:40 Resp 18 08/27/20 11:40 BP 126/61 08/27/20 11:40 Pulse Ox 91 L 08/27/20 11:40 Intake & Output 08/26/20 08/27/20 08/27/20 18:59 06:59 18:59 Intake Total 394.663 600 0 Output Total 500 Balance 394.663 100 0 Weight 120.1 kg Intake: Intake, IV Titration 154.663 Amount Heparin Sod,Pork in 0.45% 154.663 NaCl 25,000 unit In 0.45 % NaCl 1 250ml.bag @ 8.31 UNITS/KG/HR 9.989 mls/hr IV .Q24H [facility] Rx#: [id number] Oral 240 600 0 Output: Urine 500 Other: Voiding Method Toilet # Voids 3 1 # Bowel Movements 1 - Labs CBC & Chem 7: 08/27/20 06:54 08/27/20 06:54 Labs: Abnormal Lab Results - Last 24 Hours (Table) 08/26/20 08/26/20 08/27/20 Range/Units 16:31 19:58 06:07 WBC (3.8-10.6) k/uL BUN (9-20) mg/dL Glucose (74-99) mg/dL POC Glucose (mg/dL) 106 H 110 H 106 H (75-99) mg/dL 08/27/20 08/27/20 Range/Units 06:54 06:54 WBC 18.5 H (3.8-10.6) k/uL BUN 26 H (9-20) mg/dL Glucose 119 H (74-99) mg/dL POC Glucose (mg/dL) (75-99) mg/dL
[2020-08-27] MEDS ORDERED: NITROGLYCERIN SL TABS 0.4 MG TAB SUBLINGUAL PRN (11:58)
[2020-08-27] MEDS ORDERED: ALPRAZolam 0.5 MG TAB PO PRN (11:58)
[2020-08-27] MEDS ORDERED: ALPRAZolam 0.25 MG TAB PO PRN (11:58)
--- NOTE | 2020-08-27 14:14 | P.PN ---
Subjective 74-year-old male was admitted secondary to arrhythmia which appears to be either multifocal atrial tachycardia PVCs no evidence of atrial fibrillation. Patient had auto mantra in the past which did not show any evidence of A. fib either. Patient was on IV heparin which was discontinued. Patient had EF of around 45- 50% does appear to have my live pedal edema patient will be switched from hydrochlorothiazide to Lasix. Patient is also on ROWAN inhibitor with high normal potassium. Will repeat potassium again after starting him on low potassium diet if it continues to be elevated related to either cut down the dose or discontinue ROWAN inhibitor at that time. 08/27/2020 Patient doesn't have any more palpitations at this time. 3 because the decreased ejection fraction cardiology is contemplating radical catheterization tomorrow to rule out any coronary vascular disease. Constitutional: Denied any fatigue denied any fever. Cardio vascular: denied any chest pain, palpitations Gastrointestinal denied any nausea vomiting Pulmonary: Denied any shortness of breath cough Neurologic denied any new focal deficits All inpatient medications were reviewed and appropriate changes in these medications as dictated in the interval history and assessment and plan. PHYSICAL EXAMINATION: GENERAL: The patient is alert and oriented x3, not in any acute distress. Well developed, well nourished. HEENT: Pupils are round and equally reacting to light. EOMI. No scleral icterus. No conjunctival pallor. Normocephalic, atraumatic. No pharyngeal erythema. No thyromegaly. CARDIOVASCULAR: S1 and S2 present. No murmurs, rubs, or gallops. PULMONARY: Chest is clear to auscultation, no wheezing or crackles. ABDOMEN: Soft, nontender, nondistended, normoactive bowel sounds. No palpable organomegaly. MUSCULOSKELETAL: No joint swelling or deformity. EXTREMITIES: No cyanosis, clubbing, does have bilateral pitting pedal edema NEUROLOGICAL: Gross neurological examination did not reveal any focal deficits. SKIN: No rashes. Assessment and plan -Multifocal atrial tachycardia .IV heparin was discontinued as there is no evidence of atrial fibrillation and patient was started on subcutaneous heparin for DVT prophylaxis. Patient's TSH is within normal limits -Hypertension next and-hyperlipidemia - type 2 diabetes mellitus metformin will be discontinued and patient will be started on sliding scale insulin along with his other home regimen -Congestive heart failure chronic systolic dysfunction EF of around 45-50% with mild acute exacerbation patient will be switched to Lasix from hydrochlorothiazide -Hyperkalemia secondary to ROWAN inhibitor patient was started on low potassium diet if potassium doesn't improve we need to discontinue ROWAN inhibitor at the time DVT prophylaxis: Subcutaneous heparin- Objective - Vital Signs Vital signs: Vital Signs Temp 98.4 F 08/27/20 07:40 Pulse 80 08/27/20 11:40 Resp 18 08/27/20 11:40 BP 126/61 08/27/20 11:40 Pulse Ox 91 L 08/27/20 11:40 Intake & Output 08/26/20 08/27/20 08/27/20 18:59 06:59 18:59 Intake Total 394.663 600 240 Output Total 500 Balance 394.663 100 240 Weight 120.1 kg Intake: Intake, IV Titration 154.663 Amount Heparin Sod,Pork in 0.45% 154.663 NaCl 25,000 unit In 0.45 % NaCl 1 250ml.bag @ 8.31 UNITS/KG/HR 9.989 mls/hr IV .Q24H [facility] Rx#: [id number] Oral 240 600 240 Output: Urine 500 Other: Voiding Method Toilet # Voids 3 1 # Bowel Movements 1 - Labs CBC & Chem 7: 08/27/20 06:54 08/27/20 06:54 Labs: Abnormal Lab Results - Last 24 Hours (Table) 08/26/20 08/26/20 08/27/20 Range/Units 16:31 19:58 06:07 WBC (3.8-10.6) k/uL BUN (9-20) mg/dL Glucose (74-99) mg/dL POC Glucose (mg/dL) 106 H 110 H 106 H (75-99) mg/dL 08/27/20 08/27/20 08/27/20 Range/Units 06:54 06:54 11:49 WBC 18.5 H (3.8-10.6) k/uL BUN 26 H (9-20) mg/dL Glucose 119 H (74-99) mg/dL POC Glucose (mg/dL) 134 H (75-99) mg/dL
[2020-08-27 16:54] LABS: Glucose,Whole Blood 108 mg/dL (75-99)
[2020-08-27] MEDS: allopurinoL 300 MG TAB PO SCH (19:47)
[2020-08-27] MEDS: ASPIRIN 81 MG PO SCH (19:47)
[2020-08-27 20:30] LABS: Glucose,Whole Blood 127 mg/dL (75-99)
[2020-08-27] MEDS ORDERED: SODIUM CHLORIDE 0.9% 1,000 ML in EMPTY BAG 1 BAG IV ONE (23:00)
[2020-08-28] MEDS: FUROSEMIDE 40 MG TAB PO SCH (04:26)
[2020-08-28] MEDS: INSULIN ASPART (NovoLOG) 100 UNIT/ML VIAL SQ SCH ×4 (04:57→21:32)
[2020-08-28] MEDS: HEPARIN SODIUM,PORCINE/PF 5,000 UNIT/0.5 ML SYRINGE SQ SCH ×2 (05:49→21:32)
[2020-08-28] MEDS: MAGNESIUM OXIDE 400 MG TAB PO SCH (05:49)
[2020-08-28] MEDS: AMIODARONE 200 MG TAB PO SCH ×3 (05:49→21:32)
[2020-08-28] MEDS: EZETIMIBE 10 MG TAB PO SCH (05:50)
[2020-08-28 06:05] LABS: Glucose,Whole Blood 105 mg/dL (75-99)
[2020-08-28] MEDS ORDERED: ATORVASTATIN 80 MG TAB PO ONE (07:00)
[2020-08-28] MEDS ORDERED: HEPARIN SODIUM,PORCINE 10,000 UNIT in SODIUM CHLORIDE 0.9% 1,000 ML IRRIGATION PRN (07:00)
[2020-08-28] MEDS ORDERED: ASPIRIN 325 MG TAB PO ONE (07:00)
[2020-08-28] MEDS ORDERED: HEPARIN SODIUM,PORCINE 2,500 UNIT in SODIUM CHLORIDE 0.9% 250 ML IRRIGATION PRN (07:00)
[2020-08-28] MEDS ORDERED: VERAPAMIL 2.5 MG/ML 2 ML AMP ONE (10:51)
[2020-08-28] MEDS ORDERED: LIDOCAINE 1% INJ 10MG/ML (20 ML MDV) ONE (10:51)
[2020-08-28] MEDS ORDERED: fentaNYL (PF) 50 MCG/ML 2 ML AMP ONE (10:52)
[2020-08-28] MEDS ORDERED: SODIUM CHLORIDE 0.9% 500 ML 500 ML IV ONE (11:05)
[2020-08-28] MEDS ORDERED: fentaNYL (PF) 50 MCG/ML 2 ML AMP IV ONE (11:41)
[2020-08-28] MEDS ORDERED: LIDOCAINE 1% INJ 10MG/ML (20 ML MDV) SQ ONE (11:44)
[2020-08-28] MEDS ORDERED: MIDAZOLAM 2 MG/2 ML VIAL IV ONE (11:45)
[2020-08-28] MEDS ORDERED: VERAPAMIL SYRINGE (5 MG/10 ML) INTRAARTER ONE (11:46)
[2020-08-28] MEDS ORDERED: HEPARIN SODIUM 1,000 UN/ML (10ML VL) IV ONE (12:00)
[2020-08-28] MEDS ORDERED: IOPAMIDOL-370 125ML BTL INJ ONE (12:01)
[2020-08-28] MEDS ORDERED: RX INFO: IV CONTRAST WAS GIVEN 1 EACH MISC MISCELLANE PRN (12:12)
[2020-08-28] MEDS ORDERED: SODIUM CHLORIDE 0.9% 1,000 ML IV SCH (12:15)
[2020-08-28 12:29] LABS: Glucose,Whole Blood 102 mg/dL (75-99)
[2020-08-28] MEDS ORDERED: lisinopriL 5 MG TAB PO SCH ×2 (12:34→21:00)
--- NOTE | 2020-08-28 14:47 | P.PN ---
Subjective 74-year-old male was admitted secondary to arrhythmia which appears to be either multifocal atrial tachycardia PVCs no evidence of atrial fibrillation. Patient had auto mantra in the past which did not show any evidence of A. fib either. Patient was on IV heparin which was discontinued. Patient had EF of around 45- 50% does appear to have my live pedal edema patient will be switched from hydrochlorothiazide to Lasix. Patient is also on ROWAN inhibitor with high normal potassium. Will repeat potassium again after starting him on low potassium diet if it continues to be elevated related to either cut down the dose or discontinue ROWAN inhibitor at that time. 08/27/2020 Patient doesn't have any more palpitations at this time. because the decreased ejection fraction cardiology is contemplating radical catheterization tomorrow to rule out any coronary vascular disease. 08/28/2020 Patient had cardiac catheterization which showed occlusion of couple of coronary vessels executors are not available as I do not have the cath reported this time. Cardiology recommended evaluation by thoracic surgery for the coronary artery bypass grafting. Patient doesn't have any chest pain. Constitutional: Denied any fatigue denied any fever. Cardio vascular: denied any chest pain, palpitations Gastrointestinal denied any nausea vomiting Pulmonary: Denied any shortness of breath cough Neurologic denied any new focal deficits All inpatient medications were reviewed and appropriate changes in these medications as dictated in the interval history and assessment and plan. PHYSICAL EXAMINATION: GENERAL: The patient is alert and oriented x3, not in any acute distress. Well developed, well nourished. HEENT: Pupils are round and equally reacting to light. EOMI. No scleral icterus. No conjunctival pallor. Normocephalic, atraumatic. No pharyngeal erythema. No thyromegaly. CARDIOVASCULAR: S1 and S2 present. No murmurs, rubs, or gallops. PULMONARY: Chest is clear to auscultation, no wheezing or crackles. ABDOMEN: Soft, nontender, nondistended, normoactive bowel sounds. No palpable organomegaly. MUSCULOSKELETAL: No joint swelling or deformity. EXTREMITIES: No cyanosis, clubbing, does have bilateral pitting pedal edema NEUROLOGICAL: Gross neurological examination did not reveal any focal deficits. SKIN: No rashes. Assessment and plan -Multifocal atrial tachycardia .IV heparin was discontinued as there is no evidence of atrial fibrillation and patient was started on subcutaneous heparin for DVT prophylaxis. Patient's TSH is within normal limits -Hypertension -hyperlipidemia - type 2 diabetes mellitus metformin will be discontinued and patient will be started on sliding scale insulin along with his other home regimen -Congestive heart failure chronic systolic dysfunction EF of around 45-50% with mild acute exacerbation patient is presently on Lasix. Patient heart failure is new, because of which patient had cardiac catheterization which showed coronary artery occlusion and will need CABG. -Hyperkalemia improved now DVT prophylaxis: Subcutaneous heparin- Objective - Vital Signs Vital signs: Vital Signs Temp 98 F 08/28/20 12:20 Pulse 65 08/28/20 08:00 Resp 20 08/28/20 12:20 BP 163/112 08/28/20 12:35 Pulse Ox 94 L 08/28/20 12:35 Intake & Output 08/27/20 08/28/20 08/28/20 18:59 06:59 18:59 Intake Total 480 340 Output Total 400 350 Balance 480 -400 -10 Weight 119.2 kg Intake: IV 100 Oral 480 240 Output: Urine 400 350 Other: Voiding Method Toilet Toilet # Voids 2 1 - Labs CBC & Chem 7: 08/27/20 06:54 08/27/20 06:54 Labs: Abnormal Lab Results - Last 24 Hours (Table) 08/27/20 08/27/20 08/28/20 Range/Units 16:52 20:17 05:56 POC Glucose (mg/dL) 108 H 127 H 105 H (75-99) mg/dL 08/28/20 Range/Units 12:27 POC Glucose (mg/dL) 102 H (75-99) mg/dL
[2020-08-28] MEDS ORDERED: MD COMMUNICATION TO PHARMACY 1 EACH MISC PO ONE ×3 (14:50→14:57)
--- NOTE | 2020-08-28 15:13 | P.GSCN ---
History of Present Illness Consult date: 08/28/20 Reason for Consult: Coronary artery disease, surgical revascularization recommendations Requesting physician: Angelica Dietz History of present illness: This is a 80-year-old gentleman who follows on an outpatient basis with Dr. Hiren Travis for primary care. He has a previous medical history of heart palpitations, hypertension, hyperlipidemia, wxk-[id number]-soqzvoefh diabetes, left lower extremity DVT with anticoagulation for approximately 1 year, rheumatic fever, questionable obstructive sleep apnea without official diagnosis, and obesity. Apparently this gentleman has been experiencing heart palpitations for many many years, he has worn a Holter monitor many times and has had several EKGs without any significant findings. He was treated by Dr. Suzette sol 5-6 years ago with Lopressor which was eventually stopped due to bradycardia. In December 2018 the patient admits to shortness of breath with exertion when shoveling snow. He did have a stress test without any identifiable problem per the patient but states he was told if he ever experience shortness of breath again he should be seen. His last week he began to experience shortness of breath and lower extremity edema. He was seen by his primary care physician who did an EKG demonstrating arrhythmia and the patient was recommended to report to the emergency room. Initially he reported to [facility], but there was no clothing sorter in the hospital so he was transported to [facility]. By the time he got here the patient reported no shortness of breath, decreased lower extremity edema. EKG demonstrated atrial tachycardia with occasional PVCs. Lab work revealed white blood cell count 21, BUN 25, creatinine 0.93, BNP 629, troponin negative, TSH 1.68. Chest x-ray demonstrated no acute process. The patient was admitted for evaluation and treatment with consultation placed to Dr. Moore. Workup included a transthoracic echocardiogram demonstrating mildly impaired left ventricular systolic function with EF 45-50%, dilated left atrium, mild mitral regurgitation with mild MAC, and mild tricuspid regurgitation. He was recommended to undergo heart catheterization was completed today and which demonstrated RCA stenosis 100%, circumflex stenosis 50%, and proximal LAD stenosis 95%. Due to these findings consultation placed to cardiothoracic surgery for revascularization recommendations. Review of Systems Review of systems was completed was negative except as noted - Cardiovascular Reports as per HPI, Reports decreased exercise tolerance, Reports dyspnea on exertion, Reports leg edema, Reports palpitations, Reports shortness of breath Past Medical History Past Medical History: Diabetes Mellitus, Deep Vein Thrombosis (DVT), Hyperlipidemia, Hypertension Additional Past Medical History / Comment(s): DVT - 1996, irregular heart rhythm, rheumatic fever History of Any Multi-Drug Resistant Organisms: None Reported Past Surgical History: Adenoidectomy, Appendectomy, Tonsillectomy Past Psychological History: No Psychological Hx Reported Smoking Status: Never smoker Past Alcohol Use History: Rare Past Drug Use History: None Reported - Past Family History Mother Family Medical History: Congestive Heart Failure (CHF) Father Family Medical History: CVA/TIA Medications and Allergies Home Medications Medication Instructions Recorded Confirmed Type Aspirin EC [Ecotrin Low Dose] 81 mg PO HS 08/25/20 08/25/20 History Enalapril Maleate [Vasotec] 10 mg PO HS 08/25/20 08/25/20 History Ezetimibe [Zetia] 10 mg PO DAILY 08/25/20 08/25/20 History Magnesium Oxide [Mag-Ox] 400 mg PO DAILY 08/25/20 08/25/20 History allopurinoL [Zyloprim] 300 mg PO DAILY 08/25/20 08/25/20 History hydroCHLOROthiazide [Hydrodiuril] 25 mg PO DAILY 08/25/20 08/25/20 History metFORMIN HCL ER [Glucophage Xr] 500 mg PO BID 08/25/20 08/25/20 History Allergies Allergy/AdvReac Type Severity Reaction Status Date / Time [id number] Reductase AdvReac "muscle Verified 08/25/20 16:23 Inhibitor pain/soreness" Surgical - Exam Vital Signs Temp Pulse Resp BP Pulse Ox 98.0 F 118 H 18 99/86 97 08/25/20 14:57 08/25/20 14:57 08/25/20 14:57 08/25/20 14:57 08/25/20 14:57 CONSTITUTIONAL: Awake and alert, appears comfortable, cooperative, well- developed, well-nourished, no pain, no acute distress EYES: Pupils equal, round, reactive to light, normal ocular movement ENT: Moist mucous membranes without oral lesions present NECK: No masses, no bruits, trachea midline RESPIRATORY: Lungs sounds clear to auscultation bilaterally. Respirations even, nonlabored. Currently on room air with oxygen saturation 94%. Strong cough. No chest wall deformities. No clubbing or cyanosis present CARDIOVASCULAR: S1, S2 present. Irregular rate and rhythm, sinus rhythm PVCs on telemetry. Palpable peripheral pulses bilaterally. Trace bilateral lower extremity edema present. No calf pain or tenderness noted. No significant lower extremity varicosities noted. GASTROINTESTINAL: Abdomen soft, round, nontender, nondistended without masses or organomegaly noted. There is no rebound or guarding present. Active bowel sounds present 4 quadrants. GENITOURINARY: Deferred INTEGUMENTARY: Skin is warm and dry with evidence of good perfusion. NEUROLOGIC: Cranial nerves II through XII intact, normal coordination, no obvious motor or sensory deficits, speech is normal MUSKULOSKELETAL: Able to move all extremities, strength equal bilaterally, normal posture PSYCHIATRIC: Alert and oriented to person place and time, appropriate affect, intact judgment and insight Results - Labs 08/27/20 06:54 08/27/20 06:54 Abnormal Lab Results - Last 24 Hours (Table) 08/27/20 08/27/20 08/28/20 Range/Units 16:52 20:17 05:56 POC Glucose (mg/dL) 108 H 127 H 105 H (75-99) mg/dL 08/28/20 Range/Units 12:27 POC Glucose (mg/dL) 102 H (75-99) mg/dL - Imaging Chest x-ray: report reviewed, image reviewed EKG: image reviewed Additional studies: Heart catheterization films reviewed Assessment and Plan Assessment: 1. Coronary artery disease 2. Heart palpitations 3. Hypertension 4. Hyperlipidemia 5. Xxe-ipqvapk-sdbhlbeco diabetes 6. Left lower extremity DVT with anticoagulation for approximately 1 year 7. Rheumatic fever 8. Questionable obstructive sleep apnea without official diagnosis 9. Obesity Plan: The patient was seen and examined at the bedside with Dr. Mullen. Charts S diagnostics reviewed, heart catheterization films were reviewed with Dr. Mullen. The usual perioperative course of open heart surgery was discussed in detail with the patient and his , risks and benefits were reviewed, all questions were answered. The patient did consent to proceed with surgery. Preoperative testing was initiated. Barring any major red flags our plan is for off-pump coronary artery bypass surgery with left internal mammary artery and endoscopic vein harvesting, left atrial appendage ligation tomorrow, 08/29/[address] Mullen. The patient will be nothing by mouth after midnight. Beta christiane will not be given as it is contraindicated due to bradycardia per Dr. Moore. Continue aspirin, Zetia, Lasix. Once testing has been completed we will calculate STS risk score and discussed with the patient. We'll perform 5 m walk test. More recommendations to follow. Thank you Dr. Dietz for this consult. We look forward to working with you in the care of your patient. Time with Patient: Greater than 30
--- NOTE | 2020-08-28 15:23 | CC ---
CARDIAC CATHETERIZATION REPORT Mr. Urias is a 80-year-old male with known history of hypertension, hyperlipidemia, diabetes mellitus, who presented with symptoms of palpitation was noted to have frequent ventricular ectopic activity and mild impairment of left ventricular systolic function. He was evaluated by Dr. Moore. Recommendation made regarding cardiac catheterization. The procedure as well as the risks and the complications were discussed with the patient who is in full understanding and agreement. PROCEDURE: Patient was brought to cath lab manager in a fasting semisedated state, after receiving fentanyl and Benadryl and achieving moderate conscious state, using Xylocaine anesthesia and Seldinger technique, a 6-Senegalese sheath was introduced in the right radial artery. Selective right and left coronary angiography performed using 5-Senegalese 3.5 bend left Briana and 6-Senegalese 5 bend right Briana catheter images of the coronary artery including hemiaxial views were obtained. The right Briana was used to cross the aortic valve and left ventricular end-diastolic pressure was calculated. Following that, catheter and sheath were removed. Hemostasis was obtained with deployment of a TR band. There was no immediate complication. Patient returned to his room in stable condition. Of note, the patient received 5000 units of intravenous heparin as well as intra-arterial verapamil. He had severe tortuosity in the right subclavian artery. FINDINGS: FLUOROSCOPY: There was severe calcification involving all the coronary arteries. CORONARY ANGIOGRAM: LEFT MAIN: This is a large-sized vessel, bifurcating into left circumflex, left anterior descending artery, left main artery has no evidence of high-grade stenosis. LEFT ANTERIOR DESCENDING ARTERY: This is a large-sized vessel reaching towards the apex with a wraparound apex segment giving rise to a large diagonal branch proximally at the takeoff of the diagonal branch, the left anterior descending artery has a complex lesion with stenosis up to 90%. The rest of the vessel is large in caliber and has no evidence of high-grade stenosis. LEFT CIRCUMFLEX: This is a nondominant vessel giving rise to 2 obtuse marginal branches. The proximal segment of the left circumflex has a 40% to 50%. plaque. The rest of the vessel has no high-grade stenosis. RIGHT CORONARY ARTERY: This vessel is totally occluded proximally with no antegrade flow. COLLATERALS: There is bridging collaterals from the left coronary system toward the RCA feeding the RCA in the PDA and PLV. LEFT VENTRICULOGRAM: Left ventriculogram not performed. HEMODYNAMICS: There was no gradient across the aortic valve. The left ventricle end-diastolic pressure was 12-16 mmHg. CONCLUSION: 1. Calcified coronary arteries. 2. Chronically occluded right coronary artery. 3. Critical stenosis involving the proximal left anterior descending coronary artery. 4. Mild disease in left circumflex. 5. Collaterals to the right coronary artery from the left coronary system. RECOMMENDATIONS: In view of findings and anatomy and the history of diabetes, I would recommend to proceed with evaluation for coronary artery bypass grafting with bypass to the LAD and the right coronary artery. Those findings and recommendations were discussed with the patient and his over the phone and they are in full understanding and agreement. Duration of sedation is 20 minutes. MMODL / IJN: [id number] /
--- NOTE | 2020-08-28 15:26 | LTR ---
DATE OF SERVICE: 08/28/[address] Travis: I had the pleasure of performing cardiac catheterization on Mr. Urias at [facility] on August 28 and a full copy of procedure note will be forwarded to you. In brief, he was found to have a chronically occluded right coronary artery with critical stenosis in the left anterior descending artery and based on those findings, I have recommended proceeding with evaluation for coronary artery bypass grafting. I will keep you updated on his progress. Thank you again for allowing me to participate in his care. Please feel free to call for any questions. Sincerely, ANTWON / INDYN: [id number] /
--- NOTE | 2020-08-28 16:14 | US ---
EXAMINATION TYPE: US carotid duplex BILAT DATE OF EXAM: 08/28/2020 COMPARISON: NONE CLINICAL HISTORY: preop cardiac surgery. Pre cabg EXAM MEASUREMENTS: RIGHT: Peak Systolic Velocity (PSV) cm/sec ----- Right CCA: 47.2 ----- Right ICA: 72.3 ----- Right ECA: 54.2 ICA/CCA ratio: 1.5 RIGHT: End Diastole cm/sec ----- Right CCA: 10.9 ----- Right ICA: 21.9 ----- Right ECA: 0.0 LEFT: Peak Systolic Velocity (PSV) cm/sec ----- Left CCA: 52.9 ----- Left ICA: 81.4 ----- Left ECA: 53.7 ICA/CCA ratio: 1.5 LEFT: End Diastole cm/sec ----- Left CCA: 8.9 ----- Left ICA: 18.0 ----- Left ECA: 0.0 VERTEBRALS (direction of flow): Right Vertebral: Antegrade Left Vertebral: Antegrade Rhythm: Arrhythmia Moderate atherosclerotic plaque visualized in common carotid artery bifurcations. No significant enrrique nosis. No elevated velocities . IMPRESSION: 1. No evidence of hemodynamically significant stenosis of the bilateral internal carotid arteries. Th ere is less than 50% stenosis. There is moderate atherosclerotic plaque at the bilateral common carot id artery bifurcations. Criteria for Assigning % of Stenosis / Diameter reduction (Estimation based on the indirect measurements of the internal carotid artery velocities (ICA PSV). 1. Normal (no stenosis)=ICA PSV < 125 cm/s: ratio < 2.0: ICA EDV<40 cm/s. 2. Less than 50% stenosis=ICA PSV < 125 cm/s: ratio < 2.0: ICA EDV<40 cm/s. 3. 50 to 69% stenosis=ICA PSV of 125 to 230 cm/s: ration 2.0 ? 4.0: ICA EDV 40-100 cm/s. 4. Greater than 70% stenosis to near occlusion= ICA PSV > 230 cm/s: ratio > 4.0: ICA EDV > 100 cm/s. 5. Near occlusion= ICA PSV velocities may be low or undetectable: variable ratio and ICA EDV. 6. Total occlusion=unable to detect flow.
[2020-08-28 16:38] LABS: HCT 50.9 % (39.0-53.0); HGB 16.1 gm/dL (13.0-17.5); MCH 30.5 pg (25.0-35.0); MCHC 31.7 g/dL (31.0-37.0); MCV 96.2 fL (80.0-100.0); Platelet Count 151 k/uL (150-450); RBC 5.29 m/uL (4.30-5.90); RDW 13.6 % (11.5-15.5)
[2020-08-28 16:40] LABS: Glucose,Whole Blood 119 mg/dL (75-99)
[2020-08-28 16:41] LABS: Albumin 3.9 g/dL (3.5-5.0); Calcium 9.2 mg/dL (8.4-10.2); Magnesium 2.1 mg/dL (1.6-2.3); Potassium 5.4 mmol/L (3.5-5.1); Total Bilirubin 0.8 mg/dL (0.2-1.3); Total Protein 6.4 g/dL (6.3-8.2)
[2020-08-28 17:08] LABS: Neutrophils % (M) 26 %; Nucleated Red Blood Cells 0 /100 WBC (0-0); Total Cells Counted 100
[2020-08-28 18:07] LABS: Partial Thromboplastin Time 24.6 sec (22.0-30.0); Prothrombin Time 11.1 sec (9.0-12.0)
[2020-08-28 20:28] LABS: Glucose,Whole Blood 101 mg/dL (75-99)
[2020-08-28] MEDS: allopurinoL 300 MG TAB PO SCH (21:31)
[2020-08-28] MEDS: ASPIRIN 81 MG PO SCH (21:32)
[2020-08-28 23:59] LABS: Hemoglobin A1C 6.4 % (4.0-6.0)
[2020-08-29 02:00] LABS: Chol/HDL Ratio 5.24
[2020-08-29 03:50] LABS: Hepatitis A Antibody IgM Non-Reactive (Non-Reactive); Hepatitis B Core IgM Non-Reactive (Non-Reactive); Hepatitis B Surface Antigen Non-Reactive (Non-Reactive); Hepatitis C IgG Antibody Non-Reactive (Non-Reactive)
[2020-08-29] MEDS ORDERED: NOREPINEPHRINE 4 MG in SODIUM CHLORIDE 0.9% 250 ML IV SCH (05:00)
[2020-08-29] MEDS ORDERED: HEPARIN SODIUM,PORCINE 5,000 UNIT in SODIUM CHLORIDE 0.9% 500 ML 500 ML IV ONE (05:00)
[2020-08-29] MEDS ORDERED: ATORVASTATIN 10 MG TAB PO ONE (05:00)
[2020-08-29] MEDS ORDERED: ALBUMIN HUMAN 5% 500 ML in EMPTY BAG 1 BAG IVPB ONE ×6 (05:00)
[2020-08-29] MEDS ORDERED: MAGNESIUM SULFATE SYG 4.06 MEQ/ML SYRINGE IV ONE (05:00)
[2020-08-29] MEDS ORDERED: HEPARIN SODIUM 1,000 UN/ML (10ML VL) IV ONE (05:00)
[2020-08-29] MEDS ORDERED: PHENYLEPHRINE 40 MG in SODIUM CHLORIDE 0.9% 250 ML IV ONE (05:00)
[2020-08-29] MEDS ORDERED: CHLORHEXIDINE GLUCONATE 15 ML CUP MUCOUS MEM ONE (05:00)
[2020-08-29] MEDS ORDERED: TRANEXAMIC ACID 2,000 MG in SODIUM CHLORIDE 0.9% 80 ML IV ONE (05:00)
[2020-08-29] MEDS ORDERED: NITROGLYCERIN-D5W PMX 50 MG in DEXTROSE/WATER 1 250ML.BAG IV SCH (05:00)
[2020-08-29] MEDS ORDERED: CLEVIDIPINE BUTYRATE 25 MG in EMPTY BAG 1 BAG IV SCH ×2 (05:00→12:23)
[2020-08-29] MEDS ORDERED: PROTAMINE SULFATE 250 MG in EMPTY BAG 1 BAG IV ONE (05:00)
[2020-08-29] MEDS ORDERED: MANNITOL 25% 12.5 GM/50 ML VIAL IV ONE ×2 (05:00)
[2020-08-29] MEDS ORDERED: NITROGLYCERIN-D5W PMX 25 MG/250 ML BTL IV ONE (05:00)
[2020-08-29] MEDS ORDERED: ASPIRIN 325 MG TAB PO ONE (05:00)
[2020-08-29] MEDS ORDERED: CALCIUM CHLORIDE 100 MG/ML 10 ML SYRINGE IVP ONE (05:00)
[2020-08-29] MEDS ORDERED: ceFAZolin 1,000 MG in SODIUM CHLORIDE 0.9% IRRIGATIO 1,000 ML IRRIGATION ONE (05:00)
[2020-08-29] MEDS ORDERED: PROTAMINE SULFATE 10 MG/ML 25 ML VIAL IV ONE (05:00)
[2020-08-29] MEDS ORDERED: SODIUM BICARB 8.4% 50 ML SYR (1 MEQ/ML) IV ONE (05:00)
[2020-08-29] MEDS ORDERED: ALBUMIN HUMAN 25% 50 ML in EMPTY BAG 1 BAG IVPB ONE (05:00)
[2020-08-29] MEDS ORDERED: PAPAVERINE 360 MG in SODIUM CHLORIDE 0.9% 90 ML IV ONE (05:00)
[2020-08-29] MEDS ORDERED: LACTATED RINGERS 1,000 ML IV SCH (05:00)
[2020-08-29 05:54] LABS: Glucose,Whole Blood 140 mg/dL (75-99)
[2020-08-29] MEDS ORDERED: PHENYLEPHRINE 10 MG/ML VIAL IV ONE (06:00)
[2020-08-29] MEDS: AMIODARONE 200 MG TAB PO SCH ×3 (06:00→21:23)
[2020-08-29] MEDS ORDERED: INSULIN REGULAR 100 UNIT in SODIUM CHLORIDE 0.9% 100 ML IV SCH ×2 (06:00→12:23)
[2020-08-29] MEDS ORDERED: CARDIOPLEGIC SOLN (K+ 16 MEQ/L 1,000 ML with SOD BICARB SYR 8.4% (1 MEQ/ML) 20 ML, LIDO... PERFUSION NR ×3 (06:00)
[2020-08-29 06:13] LABS: HCT 48.9 % (39.0-53.0); HGB 16.5 gm/dL (13.0-17.5); MCH 32.1 pg (25.0-35.0); MCHC 33.7 g/dL (31.0-37.0); MCV 95.2 fL (80.0-100.0); Mean Platelet Volume 8.4; Platelet Count 156 k/uL (150-450); RBC 5.13 m/uL (4.30-5.90); RDW 13.1 % (11.5-15.5); WBC 18.3 k/uL (3.8-10.6)
[2020-08-29 06:26] LABS: Calcium 9.9 mg/dL (8.4-10.2); Potassium 4.2 mmol/L (3.5-5.1)
[2020-08-29] MEDS ORDERED: LACTATED RINGERS 1,000 ML IV ONE (06:36)
[2020-08-29] MEDS ORDERED: PROPOFOL 10 MG/ML 20 ML VIAL IV ONE (07:47)
[2020-08-29] MEDS ORDERED: ALBUMIN HUMAN 5% (25gm) 500 ML VIAL IVPB ONE (07:47)
[2020-08-29] MEDS ORDERED: PROTAMINE SULFATE 10 MG/ML 5 ML VIAL IV ONE (07:47)
[2020-08-29] MEDS ORDERED: MIDAZOLAM 2 MG/2 ML VIAL ONE (07:47)
[2020-08-29] MEDS ORDERED: SODIUM CHLORIDE 0.9% 250 ML BAG ONE (07:47)
[2020-08-29] MEDS ORDERED: TRANEXAMIC ACID 1,000 MG/10 ML VIAL ONE (07:47)
[2020-08-29] MEDS ORDERED: PHENYLEPHRINE-0.9% NACL SYG 1,000 MCG/10 ML SYRINGE ONE (07:47)
[2020-08-29] MEDS ORDERED: SUCCINYLCHOLINE CHLORIDE VIAL 200 MG/10 ML VIAL IV ONE (07:47)
[2020-08-29] MEDS ORDERED: VECURONIUM 10 MG VIAL IV ONE (07:47)
[2020-08-29] MEDS ORDERED: HEPARIN SODIUM,PORCINE 10,000 UNIT/ML 1 ML VIAL ONE (07:47)
[2020-08-29] MEDS ORDERED: SODIUM CHLORIDE 0.9% IRRIG 1,000 ML BTL IRRIGATION ONE (07:47)
[2020-08-29] MEDS ORDERED: fentaNYL (PF) 50 MCG/ML 50 ML VIAL ONE (07:47)
[2020-08-29] MEDS ORDERED: SODIUM CHLORIDE 0.9% 50 ML with ceFAZolin 1,000 MG IV ONE ×2 (08:35)
[2020-08-29 08:53] LABS: ABG Base Excess 2.1 mmol/L; ABG Glucose Whole Blood 119 mg/dL (75-99); ABG HCO3 28 mmol/L (21-25); ABG Hematocrit 45 % (34.0-46.0); ABG Ionized Calcium 4.6 mg/dL (4.5-5.3); ABG Lactic Acid Whole Blood 1.7 mmol/L (0.5-1.6); ABG PCO2 47 mmHg (35-45); ABG PH 7.38 (7.35-7.45); ABG PO2 273 mmHg (83-108); ABG Potassium Whole Blood 4.4 mmol/L (3.4-4.5); ABG Sodium Whole Blood 138 mmol/L (135-146); ABG TCO2 29 mmol/L (19-24)
[2020-08-29] MEDS ORDERED: MUPIROCIN 2% OINT 22 GM TUBE NASAL SCH ×2 (09:00→21:00)
[2020-08-29 10:11] LABS: ABG Glucose Whole Blood 132 mg/dL (75-99); ABG HCO3 28 mmol/L (21-25); ABG Hematocrit 44 % (34.0-46.0); ABG Ionized Calcium 4.6 mg/dL (4.5-5.3); ABG Lactic Acid Whole Blood 1.6 mmol/L (0.5-1.6); ABG Oxygen Saturation 96.2 % (94-97); ABG PCO2 46 mmHg (35-45); ABG PH 7.39 (7.35-7.45); ABG PO2 84 mmHg (83-108); ABG Potassium Whole Blood 4.5 mmol/L (3.4-4.5); ABG Sodium Whole Blood 138 mmol/L (135-146); ABG TCO2 29 mmol/L (19-24)
[2020-08-29 10:59] LABS: ABG Base Excess 1.8 mmol/L; ABG Glucose Whole Blood 131 mg/dL (75-99); ABG HCO3 27 mmol/L (21-25); ABG Hematocrit 41 % (34.0-46.0); ABG Ionized Calcium 4.4 mg/dL (4.5-5.3); ABG Lactic Acid Whole Blood 1.4 mmol/L (0.5-1.6); ABG Oxygen Saturation 97.6 % (94-97); ABG PCO2 42 mmHg (35-45); ABG PH 7.41 (7.35-7.45); ABG PO2 92 mmHg (83-108); ABG Potassium Whole Blood 4.2 mmol/L (3.4-4.5); ABG Sodium Whole Blood 138 mmol/L (135-146); ABG TCO2 28 mmol/L (19-24)
[2020-08-29] MEDS ORDERED: ALBUMIN HUMAN 5% 500 ML IVPB ONE (12:21)
[2020-08-29] MEDS ORDERED: METOCLOPRAMIDE 5 MG/ML 2 ML VIAL IVP PRN (12:23)
[2020-08-29] MEDS ORDERED: CALCIUM GLUCONATE 2 GM in SODIUM CHLORIDE 0.9% 100 ML IVPB PRN (12:23)
[2020-08-29] MEDS ORDERED: BENZOCAINE/MENTHOL LOZENG 1 EACH LOZENGE MUCOUS MEM PRN (12:23)
[2020-08-29] MEDS ORDERED: Magnesium Replacement Protocol 1 EACH MISC MISCELLANE PRN (12:23)
[2020-08-29] MEDS ORDERED: AMIODARONE 450 MG in DEXTROSE 5% IN WATER 250 ML IV PRN ×2 (12:23)
[2020-08-29] MEDS ORDERED: ONDANSETRON 4 MG/2 ML VIAL IVP PRN (12:23)
[2020-08-29] MEDS ORDERED: Phosphorus Replacement Protoco 1 EACH MISC MISCELLANE PRN (12:23)
[2020-08-29] MEDS ORDERED: DEXTROSE 5% IN WATER 100 ML with AMIODARONE 150 MG IV PRN (12:23)
[2020-08-29] MEDS ORDERED: IPRATROPIUM-ALBUTEROL 3 ML NEB INHALATION PRN (12:23)
[2020-08-29] MEDS ORDERED: hydrALAZINE HCL 20 MG/ML 1 ML VIAL IVP PRN (12:23)
[2020-08-29] MEDS ORDERED: AMIODARONE 360 MG in DEXTROSE 5% IN WATER 200 ML IV PRN ×2 (12:23)
[2020-08-29] MEDS ORDERED: DEXMEDETOMIDINE/0.9% NACL(PMX) 400 MCG in EMPTY BAG 1 BAG IV SCH (12:23)
[2020-08-29] MEDS ORDERED: Potassium Replacement Protocol 1 EACH MISC MISCELLANE PRN (12:23)
--- NOTE | 2020-08-29 12:41 | P.OP ---
Date of Procedure: 08/29/20 Preoperative Diagnosis: Coronary artery disease Postoperative Diagnosis: Same Procedure(s) Performed: Off pump CABG 3 with BRIDGES to LAD, saphenous vein grafts to obtuse marginal and posterior descending coronary arteries, endovascular vein harvest, ligation of left atrial appendage with 45 mm AtriCure clip, epi-aortic ultrasound Implants: 45 mm AtriCure clip Anesthesia: YUDITH Surgeon: Mando Mullen Upholsterer Apprentice #1: Dajuan Lazo Upholsterer Apprentice #2: Owen Wellington Estimated Blood Loss (ml): 100 IV fluids (ml): 3,000 Urine output (ml): 500 Pathology: none sent Condition: stable Disposition: PACU Indications for Procedure: 80-year-old male presents with anginal symptomatology and is found to have severe three-vessel coronary disease with left main component. Coronary bypass surgery was recommended by Dr. Dietz. Patient was offered surgery the following day versus discharge home and readmission next week and opted to stay and have the surgery done right away. Operative Findings: There was moderate LVH. Circular function was reasonably preserved. Targets were good. Conduits were good. Left atrial appendage was large but without thrombus. Epi-aortic ultrasonography demonstrated essentially normal ascending aorta. Description of Procedure: Patient was brought to the operating room, placed supine on the operating table, anesthetized and intubated. Glen Rogers-Rebecca catheter and arterial line and been placed in preoperative holding. General anesthesia was induced. Simmons catheter was placed. LOUIS probe was placed. The anterior torso and bilateral lower extremities were sterilely prepped and draped. Greater saphenous vein was harvested from the right lower extremity from mid calf to groin and was of good quality. Simultaneous sternotomy was performed left hemisternum was retracted upwards and the internal mammary artery was harvested on a vascularized pedicle. It was left intact on its origin from the subclavian and divided distally. It had excellent flow and was of excellent conduit. The left pleural space was drained with 32-[place] chest tube. Standard sternal retractor was placed. The pericardium was opened in the midline and the heart was exposed with pericardial sutures. Suction stabilization was used during distal anastomosis. The BRIDGES was tunneled into the pericardial sac in the LAD was exposed and stabilized. It was grafted in its midportion. Here was a 2.5 mm vessel. Blood flow was controlled with a 2.5 mm flow through an anastomosis of the BRIDGES to the LAD was performed in end-to-side fashion with running 8-0 Prolene suture. On completion of the anastomosis the flow through was removed effectively probing the proximal distal portion anastomosis. Suture was tied with good resultant hemostasis. Inflow was open. The SAMANTHA pedicle was tacked to the surrounding epicardium with 6-0 silk sutures. Next the inferior wall was exposed. The PDA was a 1.75 mm vessel of good quality. It was opened and blood flow control the 1.5 mm flow through. Saphenous vein was anastomosed in end-to-side fashion with running 7-0 Prolene suture. On completion of the anastomosis the flow through was removed effectively probing the proximal portion anastomosis. Suture was tied with good resultant hemostasis. Excellent backbleeding was noted and the vein to the first valve. I was lowered into anatomic position and the vein cut to appropriately to reach the ascending aorta. Backbleeding was controlled with a bulldog clamp. Next the lateral wall of the heart was exposed. The base of the left atrial appendage was sized and it was obliterated with a 45 mm AtriCure clip. Obtuse marginal coronary artery was stabilized. Was opened and blood flow was controlled with a 2 mm flow through. Second piece of saphenous vein was anastomosed in end-to-side fashion with running 7-0 Prolene suture. Completion anastomosis flow through was removed 50 probe the proximal distal portion anastomosis. Suture was tied with good result and hemostasis. Good backbleeding was noted in the vein graft to the first valve. The heart was lowered in anatomic position and the vein cut to appropriately to reach the ascending aorta. Backbleeding was controlled with a bulldog clamp. Epi-aortic ultrasonography was performed in the ascending aorta was noted to be essentially normal. Blood pressure was controlled by anesthesia and the partial-occlusion clamp was placed to the ascending aorta. 24 mm punch holes were created in the proximal anastomosis constructed with running 6-0 Prolene suture. On completion of the anastomoses they were de-aired by backbleeding and then tied. Partial- occlusion clamp was removed. All anastomoses were noted to be hemostatic. Heparin was reversed with protamine. Good hemostasis was obtained throughout. The chest was irrigated with antibiotic solution. The mediastinum was drained with 36-[place]se chest tube. Sternum was closed with 8 sternal wires. Fascia was closed with 0 Ethibond. Subcutaneous and subcuticular layers in the leg and chest were closed with layers of Vicryl suture. Dry sterile dressings were applied the patient was transferred to the ICU in stable condition on no inotropic support.
[2020-08-29 13:14] LABS: Basophils # (A) 0.4 k/uL (0-0.2); Basophils % (A) 1 %; Eosinophils # (A) 0.1 k/uL (0-0.7); Eosinophils % (A) 1 %; HCT 41.5 % (39.0-53.0); Lymphocytes # (A) 7.5 k/uL (1.0-4.8); Lymphocytes % (A) 30 %; MCHC 33.8 g/dL (31.0-37.0); MCV 94.9 fL (80.0-100.0); Mean Platelet Volume 8.5; Monocytes # (A) 1.3 k/uL (0-1.0); Monocytes % (A) 5 %; Neutrophils # (A) 14.9 k/uL (1.3-7.7); Neutrophils % (A) 60 %; Platelet Count 116 k/uL (150-450); RBC 4.37 m/uL (4.30-5.90); WBC 24.9 k/uL (3.8-10.6)
[2020-08-29 13:17] LABS: ABG Base Excess 1.5 mmol/L; ABG HCO3 27 mmol/L (21-25); ABG Oxygen Saturation 98.5 % (94-97); ABG PCO2 49 mmHg (35-45); ABG PH 7.35 (7.35-7.45); ABG PO2 117 mmHg (83-108); ABG TCO2 29 mmol/L (19-24); Allen Test Performed? Yes
[2020-08-29 13:20] LABS: Ionized Calcium 4.8 mg/dL (4.5-5.3)
[2020-08-29 13:29] LABS: ALT 37 U/L (4-49); AST 35 U/L (17-59); African American GFR (CKD) >90 (>60 ml/min/1.73 sqM); Albumin 3.2 g/dL (3.5-5.0); Alkaline Phosphatase 47 U/L (38-126); Anion Gap 4 mmol/L; Blood Urea Nitrogen 18 mg/dL (9-20); Calcium 8.2 mg/dL (8.4-10.2); Carbon Dioxide 27 mmol/L (22-30); Chloride 106 mmol/L (98-107); Glucose 123 mg/dL (74-99); Magnesium 1.8 mg/dL (1.6-2.3); Non-African American GFR(CKD) 85 (>60 ml/min/1.73 sqM); Potassium 4.3 mmol/L (3.5-5.1); Sodium 137 mmol/L (137-145); Total Protein 5.3 g/dL (6.3-8.2)
--- NOTE | 2020-08-29 13:31 | XR ---
EXAMINATION TYPE: XR chest 1V portable DATE OF EXAM: 08/29/2020 COMPARISON: 08/26/2019 HISTORY: Postop TECHNIQUE: Single frontal view of the chest is obtained. FINDINGS: There is a tiny less than 5% right apical pneumothorax. Moyers-Rebecca catheter seen with the t ip overlying the proximal pulmonary outflow tract and there is postoperative changes. NG tube appears coiled back within the esophagus. Mediastinal drain and left-sided chest tube noted. ET tube appears in good position approximately 4.2 cm above the sheila. Bilateral lower lobe infiltrate and small ef fusion. Could not exclude mild central venous congestion. Heart size stable. IMPRESSION: 1. Postoperative change with less than 5% right apical pneumothorax. 2. Bibasilar infiltrate and small effusion correlate for mild venous congestion. 3. NG tube needs to be repositioned and appears to be coiled back into the mid esophagus. Report tom led to the patient's nurse 1:30 PM 08/29/2020
[2020-08-29 13:32] LABS: INR 1.2 (<1.2); Partial Thromboplastin Time 28.4 sec (22.0-30.0); Prothrombin Time 12.2 sec (9.0-12.0)
[2020-08-29 14:23] LABS: Glucose,Whole Blood 92 mg/dL (75-99)
[2020-08-29] MEDS: EZETIMIBE 10 MG TAB PO SCH (14:36)
[2020-08-29] MEDS: LACTATED RINGERS 1,000 ML IV SCH (14:57)
[2020-08-29 15:14] LABS: Glucose,Whole Blood 115 mg/dL (75-99)
[2020-08-29 15:27] LABS: Basophils # (A) 0.2 k/uL (0-0.2); Basophils % (A) 1 %; Eosinophils # (A) 0.1 k/uL (0-0.7); Eosinophils % (A) 0 %; HCT 41.5 % (39.0-53.0); Lymphocytes % (A) 26 %; MCHC 33.6 g/dL (31.0-37.0); MCV 95.2 fL (80.0-100.0); Mean Platelet Volume 8.5; Monocytes # (A) 1.2 k/uL (0-1.0); Monocytes % (A) 5 %; Neutrophils # (A) 14.8 k/uL (1.3-7.7); Neutrophils % (A) 65 %; Platelet Count 116 k/uL (150-450); RBC 4.36 m/uL (4.30-5.90); RDW 13.1 % (11.5-15.5); WBC 22.8 k/uL (3.8-10.6)
[2020-08-29] MEDS: HEPARIN SODIUM,PORCINE/PF 5,000 UNIT/0.5 ML SYRINGE SQ SCH (15:38)
--- NOTE | 2020-08-29 15:48 | P.PN ---
Subjective 74-year-old male was admitted secondary to arrhythmia which appears to be either multifocal atrial tachycardia PVCs no evidence of atrial fibrillation. Patient had auto mantra in the past which did not show any evidence of A. fib either. Patient was on IV heparin which was discontinued. Patient had EF of around 45- 50% does appear to have my live pedal edema patient will be switched from hydrochlorothiazide to Lasix. Patient is also on ROWAN inhibitor with high normal potassium. Will repeat potassium again after starting him on low potassium diet if it continues to be elevated related to either cut down the dose or discontinue ROWAN inhibitor at that time. 08/27/2020 Patient doesn't have any more palpitations at this time. because the decreased ejection fraction cardiology is contemplating radical catheterization tomorrow to rule out any coronary vascular disease. 08/28/2020 Patient had cardiac catheterization which showed occlusion of couple of coronary vessels executors are not available as I do not have the cath reported this time. Cardiology recommended evaluation by thoracic surgery for the coronary artery bypass grafting. Patient doesn't have any chest pain. 08/29/2020 Patient will undergo CABG today Constitutional: Denied any fatigue denied any fever. Cardio vascular: denied any chest pain, palpitations Gastrointestinal denied any nausea vomiting Pulmonary: Denied any shortness of breath cough Neurologic denied any new focal deficits All inpatient medications were reviewed and appropriate changes in these medications as dictated in the interval history and assessment and plan. PHYSICAL EXAMINATION: GENERAL: The patient is alert and oriented x3, not in any acute distress. Well developed, well nourished. HEENT: Pupils are round and equally reacting to light. EOMI. No scleral icterus. No conjunctival pallor. Normocephalic, atraumatic. No pharyngeal erythema. No thyromegaly. CARDIOVASCULAR: S1 and S2 present. No murmurs, rubs, or gallops. PULMONARY: Chest is clear to auscultation, no wheezing or crackles. ABDOMEN: Soft, nontender, nondistended, normoactive bowel sounds. No palpable organomegaly. MUSCULOSKELETAL: No joint swelling or deformity. EXTREMITIES: No cyanosis, clubbing, does have bilateral pitting pedal edema NEUROLOGICAL: Gross neurological examination did not reveal any focal deficits. SKIN: No rashes. Assessment and plan -Coronary artery disease: CABG today -Multifocal atrial tachycardia .IV heparin was discontinued as there is no evidence of atrial fibrillation and patient was started on subcutaneous heparin for DVT prophylaxis. Patient's TSH is within normal limits -Hypertension -hyperlipidemia - type 2 diabetes mellitus metformin will be discontinued and patient will be started on sliding scale insulin along with his other home regimen -Congestive heart failure chronic systolic dysfunction EF of around 45-50% with mild acute exacerbation patient is presently on Lasix. Patient heart failure is new, because of which patient had cardiac catheterization which showed coronary artery occlusion and will need CABG. -Hyperkalemia improved now DVT prophylaxis: Subcutaneous heparin- Objective - Vital Signs Vital signs: Vital Signs Temp 99.0 F 08/29/20 15:00 Pulse 77 08/29/20 15:00 Resp 12 08/29/20 15:00 BP 144/66 08/29/20 06:30 Pulse Ox 94 L 08/29/20 15:00 Intake & Output 08/28/20 08/29/20 08/29/20 18:59 06:59 18:59 Intake Total 580 795.170 Output Total 350 2 830 Balance 230 -2 -34.830 Weight 118.9 kg Intake: IV 100 753 Albumin Human 5% 500 ml 500 In Empty Bag 1 bag @ 250 mls/hr IVPB ONCE ONE Rx#: [id number] Lactated Ringers 1,000 ml 150 @ 50 mls/hr IV .Q20H LUIS Rx#:[id number] Intake, IV Titration 42.170 Amount Clevidipine Butyrate 25 2.933 mg In Empty Bag 1 bag @ 1 MG/HR 2 mls/hr IV .Q24H LUIS Rx#:[id number] propofoL 1,000 mg In 39.237 Empty Bag 1 bag @ Titrate IV .Q0M LUIS Rx#: [id number] Oral 480 Output: Chest Tube Drainage 120 Chest Tube Left Pleural/ 120 Mediastinal Urine 350 2 610 Estimated Blood Loss 100 Other: Voiding Method Toilet Indwelling Catheter # Voids 1 1 ABP, PAP, CO, CI - Last Documented Arterial Blood Pressure 102/51 Pulmonary Artery Pressure 39/16 Cardiac Output 6 Cardiac Index 2.5 - Labs CBC & Chem 7: 08/29/20 15:14 08/29/20 12:45 Labs: Abnormal Lab Results - Last 24 Hours (Table) 08/28/20 08/28/20 08/28/20 Range/Units 15:44 15:44 15:44 WBC 20.0 H (3.8-10.6) k/uL Plt Count (150-450) k/uL Neutrophils # (1.3-7.7) k/uL Lymphocytes # (1.0-4.8) k/uL Lymphocytes # (Manual) 14.00 H (1.0-4.8) k/uL Monocytes # (0-1.0) k/uL Basophils # (0-0.2) k/uL PT (9.0-12.0) sec INR (<1.2) ABG pCO2 (35-45) mmHg ABG pO2 (83-108) mmHg ABG HCO3 (21-25) mmol/L ABG Total CO2 (19-24) mmol/L ABG O2 Saturation (94-97) % ABG Ionized Calcium (4.5-5.3) mg/dL ABG Glucose (75-99) mg/dL ABG Lactic Acid (0.5-1.6) mmol/L Potassium 5.4 H (3.5-5.1) mmol/L BUN 21 H (9-20) mg/dL Glucose 121 H (74-99) mg/dL POC Glucose (mg/dL) (75-99) mg/dL Hemoglobin A1c 6.4 H (4.0-6.0) % Calcium (8.4-10.2) mg/dL ALT 58 H (4-49) U/L Total Protein (6.3-8.2) g/dL Albumin (3.5-5.0) g/dL HDL Cholesterol 34.0 L (40.0-60.0) mg/dL Arterial Blood Glucose (75-99) mg/dL Crossmatch 08/28/20 08/28/20 08/28/20 Range/Units 15:44 16:36 20:17 WBC (3.8-10.6) k/uL Plt Count (150-450) k/uL Neutrophils # (1.3-7.7) k/uL Lymphocytes # (1.0-4.8) k/uL Lymphocytes # (Manual) (1.0-4.8) k/uL Monocytes # (0-1.0) k/uL Basophils # (0-0.2) k/uL PT (9.0-12.0) sec INR (<1.2) ABG pCO2 (35-45) mmHg ABG pO2 (83-108) mmHg ABG HCO3 (21-25) mmol/L ABG Total CO2 (19-24) mmol/L ABG O2 Saturation (94-97) % ABG Ionized Calcium (4.5-5.3) mg/dL ABG Glucose (75-99) mg/dL ABG Lactic Acid (0.5-1.6) mmol/L Potassium (3.5-5.1) mmol/L BUN (9-20) mg/dL Glucose (74-99) mg/dL POC Glucose (mg/dL) 119 H 101 H (75-99) mg/dL Hemoglobin A1c (4.0-6.0) % Calcium (8.4-10.2) mg/dL ALT (4-49) U/L Total Protein (6.3-8.2) g/dL Albumin (3.5-5.0) g/dL HDL Cholesterol (40.0-60.0) mg/dL Arterial Blood Glucose (75-99) mg/dL Crossmatch See Detail 08/29/20 08/29/20 08/29/20 Range/Units 05:52 06:00 06:00 WBC 18.3 H (3.8-10.6) k/uL Plt Count (150-450) k/uL Neutrophils # (1.3-7.7) k/uL Lymphocytes # (1.0-4.8) k/uL Lymphocytes # (Manual) (1.0-4.8) k/uL Monocytes # (0-1.0) k/uL Basophils # (0-0.2) k/uL PT (9.0-12.0) sec INR (<1.2) ABG pCO2 (35-45) mmHg ABG pO2 (83-108) mmHg ABG HCO3 (21-25) mmol/L ABG Total CO2 (19-24) mmol/L ABG O2 Saturation (94-97) % ABG Ionized Calcium (4.5-5.3) mg/dL ABG Glucose (75-99) mg/dL ABG Lactic Acid (0.5-1.6) mmol/L Potassium (3.5-5.1) mmol/L BUN 22 H (9-20) mg/dL Glucose 139 H (74-99) mg/dL POC Glucose (mg/dL) 140 H (75-99) mg/dL Hemoglobin A1c (4.0-6.0) % Calcium (8.4-10.2) mg/dL ALT (4-49) U/L Total Protein (6.3-8.2) g/dL Albumin (3.5-5.0) g/dL HDL Cholesterol (40.0-60.0) mg/dL Arterial Blood Glucose (75-99) mg/dL Crossmatch 08/29/20 08/29/20 08/29/20 Range/Units 08:56 10:14 11:02 WBC (3.8-10.6) k/uL Plt Count (150-450) k/uL Neutrophils # (1.3-7.7) k/uL Lymphocytes # (1.0-4.8) k/uL Lymphocytes # (Manual) (1.0-4.8) k/uL Monocytes # (0-1.0) k/uL Basophils # (0-0.2) k/uL PT (9.0-12.0) sec INR (<1.2) ABG pCO2 47 H 46 H (35-45) mmHg ABG pO2 273 H (83-108) mmHg ABG HCO3 28 H 28 H 27 H (21-25) mmol/L ABG Total CO2 29 H 29 H 28 H (19-24) mmol/L ABG O2 Saturation 100.0 H 97.6 H (94-97) % ABG Ionized Calcium 4.4 L (4.5-5.3) mg/dL ABG Glucose 119 H 132 H 131 H (75-99) mg/dL ABG Lactic Acid 1.7 H (0.5-1.6) mmol/L Potassium (3.5-5.1) mmol/L BUN (9-20) mg/dL Glucose (74-99) mg/dL POC Glucose (mg/dL) (75-99) mg/dL Hemoglobin A1c (4.0-6.0) % Calcium (8.4-10.2) mg/dL ALT (4-49) U/L Total Protein (6.3-8.2) g/dL Albumin (3.5-5.0) g/dL HDL Cholesterol (40.0-60.0) mg/dL Arterial Blood Glucose 119 H 132 H 131 H (75-99) mg/dL Crossmatch 08/29/20 08/29/20 08/29/20 Range/Units 12:45 12:45 12:45 WBC 24.9 H (3.8-10.6) k/uL Plt Count 116 L (150-450) k/uL Neutrophils # 14.9 H (1.3-7.7) k/uL Lymphocytes # 7.5 H (1.0-4.8) k/uL Lymphocytes # (Manual) (1.0-4.8) k/uL Monocytes # 1.3 H (0-1.0) k/uL Basophils # 0.4 H (0-0.2) k/uL PT 12.2 H (9.0-12.0) sec INR 1.2 H (<1.2) ABG pCO2 (35-45) mmHg ABG pO2 (83-108) mmHg ABG HCO3 (21-25) mmol/L ABG Total CO2 (19-24) mmol/L ABG O2 Saturation (94-97) % ABG Ionized Calcium (4.5-5.3) mg/dL ABG Glucose (75-99) mg/dL ABG Lactic Acid (0.5-1.6) mmol/L Potassium (3.5-5.1) mmol/L BUN (9-20) mg/dL Glucose 123 H (74-99) mg/dL POC Glucose (mg/dL) (75-99) mg/dL Hemoglobin A1c (4.0-6.0) % Calcium 8.2 L (8.4-10.2) mg/dL ALT (4-49) U/L Total Protein 5.3 L (6.3-8.2) g/dL Albumin 3.2 L (3.5-5.0) g/dL HDL Cholesterol (40.0-60.0) mg/dL Arterial Blood Glucose (75-99) mg/dL Crossmatch 08/29/20 08/29/20 08/29/20 Range/Units 13:15 15:13 15:14 WBC 22.8 H (3.8-10.6) k/uL Plt Count 116 L (150-450) k/uL Neutrophils # 14.8 H (1.3-7.7) k/uL Lymphocytes # 6.0 H (1.0-4.8) k/uL Lymphocytes # (Manual) (1.0-4.8) k/uL Monocytes # 1.2 H (0-1.0) k/uL Basophils # (0-0.2) k/uL PT (9.0-12.0) sec INR (<1.2) ABG pCO2 49 H (35-45) mmHg ABG pO2 117 H (83-108) mmHg ABG HCO3 27 H (21-25) mmol/L ABG Total CO2 29 H (19-24) mmol/L ABG O2 Saturation 98.5 H (94-97) % ABG Ionized Calcium (4.5-5.3) mg/dL ABG Glucose (75-99) mg/dL ABG Lactic Acid (0.5-1.6) mmol/L Potassium (3.5-5.1) mmol/L BUN (9-20) mg/dL Glucose (74-99) mg/dL POC Glucose (mg/dL) 115 H (75-99) mg/dL Hemoglobin A1c (4.0-6.0) % Calcium (8.4-10.2) mg/dL ALT (4-49) U/L Total Protein (6.3-8.2) g/dL Albumin (3.5-5.0) g/dL HDL Cholesterol (40.0-60.0) mg/dL Arterial Blood Glucose (75-99) mg/dL Crossmatch Microbiology - Last 24 Hours (Table) 08/28/20 18:56 Nasal Screen MRSA/MSSA - Preliminary Nasal Swab
[2020-08-29] MEDS ORDERED: IPRATROPIUM-ALBUTEROL 3 ML NEB INHALATION SCH (16:00)
[2020-08-29 16:07] LABS: Glucose,Whole Blood 123 mg/dL (75-99)
[2020-08-29 16:08] LABS: ABG Base Excess -0.7 mmol/L; ABG HCO3 25 mmol/L (21-25); ABG Oxygen Saturation 93.5 % (94-97); ABG PCO2 45 mmHg (35-45); ABG PH 7.35 (7.35-7.45); ABG PO2 70 mmHg (83-108); ABG TCO2 26 mmol/L (19-24); Allen Test Performed? Yes
[2020-08-29] MEDS: MAGNESIUM SULFATE-D5W PMX 1 GM in DEXTROSE/WATER 1 100ML.BAG IVPB SCH ×2 (16:20→18:35)
--- NOTE | 2020-08-29 16:44 | P.CNPUL ---
History of Present Illness Consult date: 08/29/20 Requesting physician: Mando Mullen Reason for consult: other (Mechanical ventilator, critical care management) Chief complaint: Palpitations, shortness of breath History of present illness: This is a 80-year-old male patient who follows with Dr. Travis is his primary care provider. He has a history of diabetes mellitus, hyperlipidemia, hypertension, irregular heart rate. He had been having issues with palpitations and chest discomfort and was transferred here from an outside facility for the same on 08/25/2020. EKG revealed evidence of multifocal atrial tachycardia with occasional PVCs. Echocardiogram revealed mildly impaired left ventricular systolic function with ejection fraction 45-50%. 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 He was recommended coronary artery bypass grafting. This was performed today by Dr. Mullen. He received an off-pump CABG 3 with a BRIDGES to the LAD, saphenous vein grafts to the obtuse marginal and posterior descending coronary artery. He is seen in consultation in the ICU. He is curre ntly on pressure support of 5 and CPAP of 5 at 50% FiO2. Gases reveal a pO2 of 70, pCO2 45, pH 7.35. Weaning parameters revealed a tidal volume of 630, minute ventilation 8.6, FVC 1.6, NIF -30 RSBI 27 with a positive cuff leak. Chest x- ray reveals postoperative changes with less than 5% right apical pneumothorax. Bibasilar atelectasis, small effusion with mild venous congestion. Mediastinal and left chest tubes in place. Nasogastric tube in place. White count 22.8. Hemoglobin 14.0. Platelets 116. Sodium 137. Potassium 4.3. Creatinine 0.81. Albumin 3.2. Glucose 123. He is on a nitroglycerin drip at 5 mcg/m. Lactated Ringer's at 50 MLS per hour. Precedex at 0.2 mg/kg/m. PA pressures 39/16. CVP 13. Cardiac output 6.0. Cardiac index 2.5. Review of Systems ROS unobtainable: due to endotracheal tube Past Medical History Past Medical History: Diabetes Mellitus, Deep Vein Thrombosis (DVT), Hype rlipidemia, Hypertension Additional Past Medical History / Comment(s): DVT - 1996, irregular heart rhythm, rheumatic fever History of Any Multi-Drug Resistant Organisms: None Reported Past Surgical History: Adenoidectomy, Appendectomy, Tonsillectomy Past Psychological History: No Psychological Hx Reported Smoking Status: Never smoker Past Alcohol Use History: Rare Past Drug Use History: None Reported - Past Family History Mother Family Medical History: Congestive Heart Failure (CHF) Father Family Medical History: CVA/TIA Medications and Allergies Home Medications Medication Instructions Recorded Confirmed Type Aspirin EC [Ecotrin Low Dose] 81 mg PO HS 08/25/20 08/25/20 History Enalapril Maleate [Vasotec] 10 mg PO HS 08/25/20 08/25/20 History Ezetimibe [Zetia] 10 mg PO DAILY 08/25/20 08/25/20 History Magnesium Oxide [Mag-Ox] 400 mg PO DAILY 08/25/20 08/25/20 History allopurinoL [Zyloprim] 300 mg PO DAILY 08/25/20 08/25/20 History hydroCHLOROthiazide [Hydrodiuril] 25 mg PO DAILY 08/25/20 08/25/20 History metFORMIN HCL ER [Glucophage Xr] 500 mg PO BID 08/25/20 08/25/20 History Allergies Allergy/AdvReac Type Severity Reaction Status Date / Time [id number] Reductase AdvReac "muscle Verified 08/29/20 06:28 Inhibitor pain/soreness" Physical Exam Vitals: Vital Signs Temp Pulse Pulse Resp BP BP Pulse Ox 08/29/20 15:00 99.0 F 77 12 94 L 08/29/20 14:45 82 14 93 L 08/29/20 14:30 75 22 94 L 08/29/20 14:15 78 18 98 08/29/20 14:00 72 17 99 08/29/20 13:50 75 13 99 08/29/20 13:40 78 15 100 08/29/20 13:30 75 10 L 97 08/29/20 13:20 71 12 98 08/29/20 13:10 75 12 99 08/29/20 13:00 75 0 L 97 08/29/20 12:50 2 L 08/29/20 12:40 78 0 L 98 08/29/20 12:35 96.6 F L 78 12 99 08/29/20 06:30 98.1 F 85 18 144/66 93 L 08/29/20 04:00 98.7 F 86 20 156/73 93 L 08/29/20 00:00 98.3 F 89 18 136/89 92 L 08/28/20 20:00 98.8 F 87 18 159/76 94 L Intake and Output 08/29/20 08/29/20 08/29/20 06:59 14:59 22:59 Intake Total 745.170 50 Output Total 2 645 185 Balance -2 100.170 -135 Intake: IV 703 50 Albumin Human 5% 500 ml 500 In Empty Bag 1 bag @ 250 mls/hr IVPB ONCE ONE Rx#: [id number] Lactated Ringers 1,000 ml 100 50 @ 50 mls/hr IV .Q20H [facility] Rx#:[id number] Intake, IV Titration 42.170 Amount Clevidipine Butyrate 25 2.933 mg In Empty Bag 1 bag @ 1 MG/HR 2 mls/hr IV .Q24H [facility] Rx#:[id number] propofoL 1,000 mg In 39.237 Empty Bag 1 bag @ Titrate IV .Q0M [facility] Rx#: [id number] Output: Chest Tube Drainage 85 35 Chest Tube Left Pleural/ 85 35 Mediastinal Urine 2 460 150 Estimated Blood Loss 100 Other: Voiding Method Indwelling Catheter Weight 118.9 kg ABP, PAP, CO, CI - Last 8 Hours Arterial Blood Pressure 102/51 Arterial Blood Pressure 119/67 Arterial Blood Pressure 109/56 Arterial Blood Pressure 117/54 Arterial Blood Pressure 139/70 Arterial Blood Pressure 141/75 Arterial Blood Pressure 117/56 Arterial Blood Pressure 110/59 Arterial Blood Pressure 127/71 Arterial Blood Pressure 130/72 Arterial Blood Pressure 149/85 Arterial Blood Pressure 135/85 Arterial Blood Pressure 134/90 Pulmonary Artery Pressure 39/16 Pulmonary Artery Pressure 41/25 Pulmonary Artery Pressure 33/18 Pulmonary Artery Pressure 36/18 Pulmonary Artery Pressure 37/20 Pulmonary Artery Pressure 40/25 Pulmonary Artery Pressure 32/14 Pulmonary Artery Pressure 39/25 Pulmonary Artery Pressure 42/27 Pulmonary Artery Pressure 38/29 Pulmonary Artery Pressure 47/33 Pulmonary Artery Pressure 41/30 Pulmonary Artery Pressure 41/26 Cardiac Output 6 Cardiac Output 6 Cardiac Output 6 Cardiac Output 6 Cardiac Output 6 Cardiac Output 4.1 Cardiac Output 4.1 Cardiac Output 4.1 Cardiac Output 4.1 Cardiac Output 4.1 Cardiac Index 2.5 Cardiac Index 2.5 Cardiac Index 2.5 Cardiac Index 2.5 Cardiac Index 2.5 Cardiac Index 1.7 Cardiac Index 1.7 Cardiac Index 1.7 Cardiac Index 1.7 Cardiac Index 1.7 GENERAL EXAM: Intubated, 80-year-old gentleman, on the mechanical ventilator, pressure support of 5 PEEP of 5, in no apparent distress. HEAD: Normocephalic. EYES: Occasional reaction of pupils, equal size. NOSE: Clear with pink turbinates. THROAT: Oral endotracheal and gastric tube secured in place. No erythema or exudates. NECK: Troy-Rebecca catheter in place. No masses, no JVD. CHEST: Dressing dry and intact. Heart Hugger in place. LUNGS: Equal air entry with faint crackles in the posterior bases. CVS: S1 and S2 normal with no audible murmur, regular rhythm. ABDOMEN: No hepatosplenomegaly, normal bowel sounds, no guarding or rigidity. SPINE: No scoliosis or deformity SKIN: No rashes CENTRAL NERVOUS SYSTEM: No focal deficits, tone is normal in all 4 extremities. EXTREMITIES: There is no peripheral edema. No clubbing, no cyanosis. Peripheral pulses are intact. Results - Laboratory Findings CBC and BMP: 08/29/20 15:14 08/29/20 12:45 ABG ABG pH 7.35 (7.35-7.45) 08/29/20 16:06 ABG pCO2 45 mmHg (35-45) 08/29/20 16:06 ABG pO2 70 mmHg (83-108) L 08/29/20 16:06 ABG O2 Saturation 93.5 % (94-97) L 08/29/20 16:06 PT/INR, D-dimer PT 12.2 sec (9.0-12.0) H 08/29/20 12:45 INR 1.2 (<1.2) H 08/29/20 12:45 Abnormal lab findings: Abnormal Labs 08/25/20 08/25/20 08/25/20 15:15 15:15 20:30 WBC 21.0 H Plt Count Neutrophils # Lymphocytes # Lymphocytes # (Manual) 13.86 H Monocytes # Monocytes # (Manual) Basophils # PT INR APTT ABG pCO2 ABG pO2 ABG HCO3 ABG Total CO2 ABG O2 Saturation ABG Ionized Calcium ABG Glucose ABG Lactic Acid Potassium BUN 25 H Glucose 130 H POC Glucose (mg/dL) 115 H Hemoglobin A1c Calcium ALT 51 H Total Protein Albumin HDL Cholesterol Arterial Blood Glucose Crossmatch 08/26/20 08/26/20 08/26/20 00:17 05:58 07:27 WBC 20.6 H Plt Count 123 L Neutrophils # Lymphocytes # Lymphocytes # (Manual) 12.77 H Monocytes # Monocytes # (Manual) 1.03 H Basophils # PT INR APTT 43.3 H ABG pCO2 ABG pO2 ABG HCO3 ABG Total CO2 ABG O2 Saturation ABG Ionized Calcium ABG Glucose ABG Lactic Acid Potassium BUN Glucose POC Glucose (mg/dL) 105 H Hemoglobin A1c Calcium ALT Total Protein Albumin HDL Cholesterol Arterial Blood Glucose Crossmatch 08/26/20 08/26/20 08/26/20 07:27 11:43 16:31 WBC Plt Count Neutrophils # Lymphocytes # Lymphocytes # (Manual) Monocytes # Monocytes # (Manual) Basophils # PT INR APTT ABG pCO2 ABG pO2 ABG HCO3 ABG Total CO2 ABG O2 Saturation ABG Ionized Calcium ABG Glucose ABG Lactic Acid Potassium 5.2 H BUN 25 H Glucose 119 H POC Glucose (mg/dL) 119 H 106 H Hemoglobin A1c Calcium ALT Total Protein Albumin HDL Cholesterol Arterial Blood Glucose Crossmatch 08/26/20 08/27/20 08/27/20 19:58 06:07 06:54 WBC 18.5 H Plt Count Neutrophils # Lymphocytes # Lymphocytes # (Manual) Monocytes # Monocytes # (Manual) Basophils # PT INR APTT ABG pCO2 ABG pO2 ABG HCO3 ABG Total CO2 ABG O2 Saturation ABG Ionized Calcium ABG Glucose ABG Lactic Acid Potassium BUN Glucose POC Glucose (mg/dL) 110 H 106 H Hemoglobin A1c Calcium ALT Total Protein Albumin HDL Cholesterol Arterial Blood Glucose Crossmatch 08/27/20 08/27/20 08/27/20 06:54 11:49 16:52 WBC Plt Count Neutrophils # Lymphocytes # Lymphocytes # (Manual) Monocytes # Monocytes # (Manual) Basophils # PT INR APTT ABG pCO2 ABG pO2 ABG HCO3 ABG Total CO2 ABG O2 Saturation ABG Ionized Calcium ABG Glucose ABG Lactic Acid Potassium BUN 26 H Glucose 119 H POC Glucose (mg/dL) 134 H 108 H Hemoglobin A1c Calcium ALT Total Protein Albumin HDL Cholesterol Arterial Blood Glucose Crossmatch 08/27/20 08/28/20 08/28/20 20:17 05:56 12:27 WBC Plt Count Neutrophils # Lymphocytes # Lymphocytes # (Manual) Monocytes # Monocytes # (Manual) Basophils # PT INR APTT ABG pCO2 ABG pO2 ABG HCO3 ABG Total CO2 ABG O2 Saturation ABG Ionized Calcium ABG Glucose ABG Lactic Acid Potassium BUN Glucose POC Glucose (mg/dL) 127 H 105 H 102 H Hemoglobin A1c Calcium ALT Total Protein Albumin HDL Cholesterol Arterial Blood Glucose Crossmatch 08/28/20 08/28/20 08/28/20 15:44 15:44 15:44 WBC 20.0 H Plt Count Neutrophils # Lymphocytes # Lymphocytes # (Manual) 14.00 H Monocytes # Monocytes # (Manual) Basophils # PT INR APTT ABG pCO2 ABG pO2 ABG HCO3 ABG Total CO2 ABG O2 Saturation ABG Ionized Calcium ABG Glucose ABG Lactic Acid Potassium 5.4 H BUN 21 H Glucose 121 H POC Glucose (mg/dL) Hemoglobin A1c 6.4 H Calcium ALT 58 H Total Protein Albumin HDL Cholesterol 34.0 L Arterial Blood Glucose Crossmatch 08/28/20 08/28/20 08/28/20 15:44 16:36 20:17 WBC Plt Count Neutrophils # Lymphocytes # Lymphocytes # (Manual) Monocytes # Monocytes # (Manual) Basophils # PT INR APTT ABG pCO2 ABG pO2 ABG HCO3 ABG Total CO2 ABG O2 Saturation ABG Ionized Calcium ABG Glucose ABG Lactic Acid Potassium BUN Glucose POC Glucose (mg/dL) 119 H 101 H Hemoglobin A1c Calcium ALT Total Protein Albumin HDL Cholesterol Arterial Blood Glucose Crossmatch See Detail 08/29/20 08/29/20 08/29/20 05:52 06:00 06:00 WBC 18.3 H Plt Count Neutrophils # Lymphocytes # Lymphocytes # (Manual) Monocytes # Monocytes # (Manual) Basophils # PT INR APTT ABG pCO2 ABG pO2 ABG HCO3 ABG Total CO2 ABG O2 Saturation ABG Ionized Calcium ABG Glucose ABG Lactic Acid Potassium BUN 22 H Glucose 139 H POC Glucose (mg/dL) 140 H Hemoglobin A1c Calcium ALT Total Protein Albumin HDL Cholesterol Arterial Blood Glucose Crossmatch 08/29/20 08/29/20 08/29/20 08:56 10:14 11:02 WBC Plt Count Neutrophils # Lymphocytes # Lymphocytes # (Manual) Monocytes # Monocytes # (Manual) Basophils # PT INR APTT ABG pCO2 47 H 46 H ABG pO2 273 H ABG HCO3 28 H 28 H 27 H ABG Total CO2 29 H 29 H 28 H ABG O2 Saturation 100.0 H 97.6 H ABG Ionized Calcium 4.4 L ABG Glucose 119 H 132 H 131 H ABG Lactic Acid 1.7 H Potassium BUN Glucose POC Glucose (mg/dL) Hemoglobin A1c Calcium ALT Total Protein Albumin HDL Cholesterol Arterial Blood Glucose 119 H 132 H 131 H Crossmatch 08/29/20 08/29/20 08/29/20 12:45 12:45 12:45 WBC 24.9 H Plt Count 116 L Neutrophils # 14.9 H Lymphocytes # 7.5 H Lymphocytes # (Manual) Monocytes # 1.3 H Monocytes # (Manual) Basophils # 0.4 H PT 12.2 H INR 1.2 H APTT ABG pCO2 ABG pO2 ABG HCO3 ABG Total CO2 ABG O2 Saturation ABG Ionized Calcium ABG Glucose ABG Lactic Acid Potassium BUN Glucose 123 H POC Glucose (mg/dL) Hemoglobin A1c Calcium 8.2 L ALT Total Protein 5.3 L Albumin 3.2 L HDL Cholesterol Arterial Blood Glucose Crossmatch 08/29/20 08/29/20 08/29/20 13:15 15:13 15:14 WBC 22.8 H Plt Count 116 L Neutrophils # 14.8 H Lymphocytes # 6.0 H Lymphocytes # (Manual) Monocytes # 1.2 H Monocytes # (Manual) Basophils # PT INR APTT ABG pCO2 49 H ABG pO2 117 H ABG HCO3 27 H ABG Total CO2 29 H ABG O2 Saturation 98.5 H ABG Ionized Calcium ABG Glucose ABG Lactic Acid Potassium BUN Glucose POC Glucose (mg/dL) 115 H Hemoglobin A1c Calcium ALT Total Protein Albumin HDL Cholesterol Arterial Blood Glucose Crossmatch 08/29/20 08/29/20 16:06 16:06 WBC Plt Count Neutrophils # Lymphocytes # Lymphocytes # (Manual) Monocytes # Monocytes # (Manual) Basophils # PT INR APTT ABG pCO2 ABG pO2 70 L ABG HCO3 ABG Total CO2 26 H ABG O2 Saturation 93.5 L ABG Ionized Calcium ABG Glucose ABG Lactic Acid Potassium BUN Glucose POC Glucose (mg/dL) 123 H Hemoglobin A1c Calcium ALT Total Protein Albumin HDL Cholesterol Arterial Blood Glucose Crossmatch - Diagnostic Findings Chest x-ray: image reviewed Assessment and Plan Assessment: 1 Coronary artery disease status post coronary artery bypass grafting utilizing a BRIDGES to the LAD, saphenous vein grafts to the obtuse marginal and posterior descending coronary arteries. Postoperative day #0. 2 Mechanical ventilator support secondary to above, expected outcome of surgery 3 Diabetes mellitus 4 Hypertension 5 Hyperlipidemia 6 History of cardiac arrhythmias Plan: The patient was seen and evaluated by Dr. Campbell Chest x-ray, ABGs and labs reviewed Weaning parameters reviewed Plan to extubate the patient Titrate the FiO2 as tolerated Incentive spirometer, bronchodilators Follow-up chest x-ray in a.m. We will continue to follow and make further recommendations based on his clinical status I, the cosigning physician, performed a history & physical examination of the patient. Lungs sounds faint crackles in the posterior bases Maintaining good O2 saturations in the 90s on as her support of 5 and CPAP of 5. The mechanical ventilator. I discussed the assessment and plan of care with my nurse Anjana barragan. I attest to the above consultation as dictated by her. Time with Patient: Greater than 30
[2020-08-29 17:22] LABS: Glucose,Whole Blood 135 mg/dL (75-99)
[2020-08-29] MEDS: KETOROLAC 15 MG/ML 1 ML VIAL IVP SCH (17:30)
[2020-08-29] MEDS: ACETAMINOPHEN IV (For NPO) 1,000 MG in EMPTY BAG 1 BAG IVPB SCH (17:59)
[2020-08-29 18:14] LABS: Glucose,Whole Blood 147 mg/dL (75-99)
[2020-08-29 19:02] LABS: Basophils # (A) 0.1 k/uL (0-0.2); Basophils % (A) 1 %; Eosinophils % (A) 0 %; HCT 40.4 % (39.0-53.0); HGB 13.6 gm/dL (13.0-17.5); Lymphocytes # (A) 2.8 k/uL (1.0-4.8); Lymphocytes % (A) 16 %; MCH 31.9 pg (25.0-35.0); MCHC 33.8 g/dL (31.0-37.0); MCV 94.6 fL (80.0-100.0); Mean Platelet Volume 8.6; Monocytes # (A) 1.2 k/uL (0-1.0); Monocytes % (A) 7 %; Neutrophils # (A) 13.7 k/uL (1.3-7.7); Neutrophils % (A) 76 %; Platelet Count 118 k/uL (150-450); RBC 4.27 m/uL (4.30-5.90); RDW 13.1 % (11.5-15.5); WBC 18.1 k/uL (3.8-10.6)
[2020-08-29 19:16] LABS: Glucose,Whole Blood 112 mg/dL (75-99)
[2020-08-29 20:00] LABS: Glucose,Whole Blood 123 mg/dL (75-99)
[2020-08-29] MEDS: IPRATROPIUM-ALBUTEROL 3 ML NEB INHALATION SCH (20:39)
[2020-08-29 20:59] LABS: Glucose,Whole Blood 116 mg/dL (75-99)
[2020-08-29] MEDS: allopurinoL 300 MG TAB PO SCH (21:23)
[2020-08-29 22:04] LABS: Glucose,Whole Blood 116 mg/dL (75-99)
[2020-08-29 23:08] LABS: Glucose,Whole Blood 146 mg/dL (75-99)
[2020-08-30] MEDS ORDERED: HYDROcodone/APAP 5-325MG 1 EACH TAB PO PRN ×2 (00:06→00:07)
[2020-08-30] MEDS: ACETAMINOPHEN IV (For NPO) 1,000 MG in EMPTY BAG 1 BAG IVPB SCH (00:11)
[2020-08-30] MEDS: KETOROLAC 15 MG/ML 1 ML VIAL IVP SCH ×5 (00:12→23:50)
[2020-08-30] MEDS: HEPARIN SODIUM,PORCINE/PF 5,000 UNIT/0.5 ML SYRINGE SQ SCH ×4 (00:12→23:50)
[2020-08-30 00:18] LABS: Glucose,Whole Blood 103 mg/dL (75-99)
[2020-08-30 01:08] LABS: Glucose,Whole Blood 106 mg/dL (75-99)
[2020-08-30 02:02] LABS: Glucose,Whole Blood 118 mg/dL (75-99)
[2020-08-30 03:04] LABS: Glucose,Whole Blood 123 mg/dL (75-99)
[2020-08-30 04:00] LABS: Glucose,Whole Blood 118 mg/dL (75-99)
[2020-08-30] MEDS: ALBUMIN HUMAN 5% 250 ML in EMPTY BAG 1 BAG IVPB PRN ×3 (04:03→08:33)
[2020-08-30 04:12] LABS: Basophils # (A) 0.3 k/uL (0-0.2); Basophils % (A) 1 %; Eosinophils # (A) 0.1 k/uL (0-0.7); Eosinophils % (A) 0 %; HCT 41.9 % (39.0-53.0); Lymphocytes # (A) 7.5 k/uL (1.0-4.8); Lymphocytes % (A) 32 %; MCH 31.7 pg (25.0-35.0); MCHC 33.4 g/dL (31.0-37.0); MCV 94.9 fL (80.0-100.0); Mean Platelet Volume 9.1; Monocytes # (A) 1.6 k/uL (0-1.0); Monocytes % (A) 7 %; Neutrophils # (A) 13.3 k/uL (1.3-7.7); Neutrophils % (A) 56 %; Platelet Count 107 k/uL (150-450); RBC 4.42 m/uL (4.30-5.90); RDW 13.2 % (11.5-15.5); WBC 23.5 k/uL (3.8-10.6)
[2020-08-30 04:15] LABS: Ionized Calcium 4.7 mg/dL (4.5-5.3)
[2020-08-30 04:50] LABS: Albumin 3.2 g/dL (3.5-5.0); Calcium 8.1 mg/dL (8.4-10.2); Potassium 4.2 mmol/L (3.5-5.1); Total Bilirubin 1.2 mg/dL (0.2-1.3); Total Protein 5.3 g/dL (6.3-8.2)
[2020-08-30 05:12] LABS: Glucose,Whole Blood 137 mg/dL (75-99)
[2020-08-30 06:57] LABS: Glucose,Whole Blood 137 mg/dL (75-99)
[2020-08-30 08:12] LABS: Glucose,Whole Blood 236 mg/dL (75-99)
--- NOTE | 2020-08-30 08:13 | P.PN ---
Subjective Progress Note Date: 08/30/20 Principal diagnosis: Coronary artery disease, heart palpitations on admission, leukocytosis on admission with unknown source. Previous medical history of long-standing history of heart palpitations, hypertension, hyperlipidemia, lpm-zpiydht-vhemeofvz diabetes, left lower extremity DVT with anticoagulation for approximately 1 year, rheumatic fever, questionable obstructive sleep apnea without official diagnosis, obesity POD #1 off-pump coronary artery bypass graft 3 with left internal mammary artery to the left anterior descending artery, reverse saphenous vein grafts to the obtuse marginal and posterior descending coronary arteries, endovascular vein harvest of the left greater saphenous vein, ligation of the left atrial appendage with a 45 mm AtriCure clip, epi-aortic ultrasound and intraoperative transesophageal echocardiogram Postoperative thrombocytopenia, expected The patient is currently sitting up in a recliner in the intensive care unit in no acute distress eating breakfast. He was successfully extubated yesterday at 16:22. Denies any pain or shortness of breath. Denies any questions or concerns. Remains in sinus rhythm with PVCs, hemodynamically stable on no inotropes or pressors. Oxygenating well on 4 L nasal cannula, able to achieve 8444-3464 mL on his incentive spirometry. Mediastinal/left pleural chest tubes, right internal jugular Magnolia/Cordis, right radial arterial line all remaining present. No other new concerns. Objective - Vital Signs Vital signs: Vital Signs Temp 98.1 F 08/29/20 16:00 Pulse 82 08/30/20 07:00 Resp 12 08/30/20 07:00 BP 93/57 08/30/20 07:00 Pulse Ox 92 L 08/30/20 06:30 Intake & Output 08/29/20 08/30/20 08/30/20 18:59 06:59 18:59 Intake Total 4952.996 2110.471 Output Total 1190 1035 Balance 106.660 568.471 Weight 124.8 kg Intake: IV 1253 1348 ACETAMINOPHEN IV (For NPO 100 100 ) 1,000 mg In Empty Bag 1 bag @ 400 mls/hr IVPB Q6HR [facility] Rx#:[id number] Albumin Human 5% 500 ml 500 250 In Empty Bag 1 bag @ 250 mls/hr IVPB ONCE ONE Rx#: [id number] CO/CI 140 Lactated Ringers 1,000 ml 300 600 @ 20 mls/hr IV .Q24H [facility] Rx#:[id number] Magnesium Sulfate-D5w Pmx 200 100 1 gm In Dextrose/Water 1 100ml.bag @ 100 mls/hr IVPB Q1H [facility] Rx#: [id number] Pressure bag 108 ceFAZolin 2 gm In Sodium 50 50 Chloride 0.9% 50 ml @ 100 mls/hr IVPB ONCE ONE Rx# :[id number] Intake, IV Titration 43.660 5.471 Amount Clevidipine Butyrate 25 2.933 mg In Empty Bag 1 bag @ 1 MG/HR 2 mls/hr IV .Q24H [facility] Rx#:[id number] Insulin Regular 100 unit 1.490 5.471 In Sodium Chloride 0.9% 100 ml @ Per Protocol IV .Q0M [facility] Rx#:[id number] propofoL 1,000 mg In 39.237 Empty Bag 1 bag @ Titrate IV .Q0M [facility] Rx#: [id number] Oral 250 Output: Chest Tube Drainage 230 680 Chest Tube Left Pleural/ 230 680 Mediastinal Urine 860 355 Estimated Blood Loss 100 Other: Voiding Method Indwelling Catheter Indwelling Catheter ABP, PAP, CO, CI - Last Documented Arterial Blood Pressure 94/38 Pulmonary Artery Pressure 28/13 Cardiac Output 5.6 Cardiac Index 2.3 - Exam CONSTITUTIONAL: Appears comfortable, cooperative, no acute distress RESPIRATORY: Lungs sounds diminished bilaterally. Respirations even, nonlabored. Currently on 4 L nasal cannula with oxygen saturation 95%. Able to achieve 8368-9717 mL on incentive spirometry. Strong cough. CARDIOVASCULAR: S1, S2 present. Regular rate and rhythm, sinus rhythm with PVCs on telemetry. Sternum stable. Palpable peripheral pulses bilaterally. No edema present. No calf pain or tenderness noted. Heart hugger in place with patient demonstrating appropriate use. Antiembolism stockings, SCDs present. GASTROINTESTINAL: Abdomen soft, nontender, nondistended. Hypoactive bowel sounds present 4 quadrants. Tolerating clear liquid diet. Negative flatus GENITOURINARY: Simmons present draining clear, yellow urine. Output overnight 10-35 mL per hour INTEGUMENTARY: Skin is warm and dry with evidence of good perfusion. Anterior chest incision well approximated and covered with dry intact dressing. EVH site well approximated without redness or drainage. NEUROLOGIC: Cranial nerves II through XII intact MUSKULOSKELETAL: Able to move all extremities, strength equal bilaterally PSYCHIATRIC: Alert and oriented to person place and time, appropriate affect, intact judgment and insight INVASIVE LINES AND TUBES: Mediastinal/left pleural chest tubes present and connected to wall suction, no air leaks present, 370 mL serosanguineous drainage overnight, 900 mL since surgery. Right internal jugular Magnolia/Cordis, right radial arterial line present. Last CO/CI 5.6/2.3, PA 27/12, CVP 2. - Allied health notes Allied health notes reviewed: nursing - Labs CBC & Chem 7: 08/30/20 04:00 08/30/20 04:00 Labs: Abnormal Lab Results - Last 24 Hours (Table) 08/28/20 08/29/20 08/29/20 Range/Units 15:44 08:56 10:14 WBC (3.8-10.6) k/uL RBC (4.30-5.90) m/uL Plt Count (150-450) k/uL Neutrophils # (1.3-7.7) k/uL Lymphocytes # (1.0-4.8) k/uL Monocytes # (0-1.0) k/uL Basophils # (0-0.2) k/uL PT (9.0-12.0) sec INR (<1.2) ABG pCO2 47 H 46 H (35-45) mmHg ABG pO2 273 H (83-108) mmHg ABG HCO3 28 H 28 H (21-25) mmol/L ABG Total CO2 29 H 29 H (19-24) mmol/L ABG O2 Saturation 100.0 H (94-97) % ABG Ionized Calcium (4.5-5.3) mg/dL ABG Glucose 119 H 132 H (75-99) mg/dL ABG Lactic Acid 1.7 H (0.5-1.6) mmol/L Sodium (137-145) mmol/L Glucose (74-99) mg/dL POC Glucose (mg/dL) (75-99) mg/dL Calcium (8.4-10.2) mg/dL Total Protein (6.3-8.2) g/dL Albumin (3.5-5.0) g/dL Arterial Blood Glucose 119 H 132 H (75-99) mg/dL Crossmatch See Detail 08/29/20 08/29/20 08/29/20 Range/Units 11:02 12:45 12:45 WBC (3.8-10.6) k/uL RBC (4.30-5.90) m/uL Plt Count (150-450) k/uL Neutrophils # (1.3-7.7) k/uL Lymphocytes # (1.0-4.8) k/uL Monocytes # (0-1.0) k/uL Basophils # (0-0.2) k/uL PT 12.2 H (9.0-12.0) sec INR 1.2 H (<1.2) ABG pCO2 (35-45) mmHg ABG pO2 (83-108) mmHg ABG HCO3 27 H (21-25) mmol/L ABG Total CO2 28 H (19-24) mmol/L ABG O2 Saturation 97.6 H (94-97) % ABG Ionized Calcium 4.4 L (4.5-5.3) mg/dL ABG Glucose 131 H (75-99) mg/dL ABG Lactic Acid (0.5-1.6) mmol/L Sodium (137-145) mmol/L Glucose 123 H (74-99) mg/dL POC Glucose (mg/dL) (75-99) mg/dL Calcium 8.2 L (8.4-10.2) mg/dL Total Protein 5.3 L (6.3-8.2) g/dL Albumin 3.2 L (3.5-5.0) g/dL Arterial Blood Glucose 131 H (75-99) mg/dL Crossmatch 08/29/20 08/29/20 08/29/20 Range/Units 12:45 13:15 15:13 WBC 24.9 H (3.8-10.6) k/uL RBC (4.30-5.90) m/uL Plt Count 116 L (150-450) k/uL Neutrophils # 14.9 H (1.3-7.7) k/uL Lymphocytes # 7.5 H (1.0-4.8) k/uL Monocytes # 1.3 H (0-1.0) k/uL Basophils # 0.4 H (0-0.2) k/uL PT (9.0-12.0) sec INR (<1.2) ABG pCO2 49 H (35-45) mmHg ABG pO2 117 H (83-108) mmHg ABG HCO3 27 H (21-25) mmol/L ABG Total CO2 29 H (19-24) mmol/L ABG O2 Saturation 98.5 H (94-97) % ABG Ionized Calcium (4.5-5.3) mg/dL ABG Glucose (75-99) mg/dL ABG Lactic Acid (0.5-1.6) mmol/L Sodium (137-145) mmol/L Glucose (74-99) mg/dL POC Glucose (mg/dL) 115 H (75-99) mg/dL Calcium (8.4-10.2) mg/dL Total Protein (6.3-8.2) g/dL Albumin (3.5-5.0) g/dL Arterial Blood Glucose (75-99) mg/dL Crossmatch 08/29/20 08/29/20 08/29/20 Range/Units 15:14 16:06 16:06 WBC 22.8 H (3.8-10.6) k/uL RBC (4.30-5.90) m/uL Plt Count 116 L (150-450) k/uL Neutrophils # 14.8 H (1.3-7.7) k/uL Lymphocytes # 6.0 H (1.0-4.8) k/uL Monocytes # 1.2 H (0-1.0) k/uL Basophils # (0-0.2) k/uL PT (9.0-12.0) sec INR (<1.2) ABG pCO2 (35-45) mmHg ABG pO2 70 L (83-108) mmHg ABG HCO3 (21-25) mmol/L ABG Total CO2 26 H (19-24) mmol/L ABG O2 Saturation 93.5 L (94-97) % ABG Ionized Calcium (4.5-5.3) mg/dL ABG Glucose (75-99) mg/dL ABG Lactic Acid (0.5-1.6) mmol/L Sodium (137-145) mmol/L Glucose (74-99) mg/dL POC Glucose (mg/dL) 123 H (75-99) mg/dL Calcium (8.4-10.2) mg/dL Total Protein (6.3-8.2) g/dL Albumin (3.5-5.0) g/dL Arterial Blood Glucose (75-99) mg/dL Crossmatch 08/29/20 08/29/20 08/29/20 Range/Units 17:20 18:13 18:39 WBC 18.1 H (3.8-10.6) k/uL RBC 4.27 L (4.30-5.90) m/uL Plt Count 118 L (150-450) k/uL Neutrophils # 13.7 H (1.3-7.7) k/uL Lymphocytes # (1.0-4.8) k/uL Monocytes # 1.2 H (0-1.0) k/uL Basophils # (0-0.2) k/uL PT (9.0-12.0) sec INR (<1.2) ABG pCO2 (35-45) mmHg ABG pO2 (83-108) mmHg ABG HCO3 (21-25) mmol/L ABG Total CO2 (19-24) mmol/L ABG O2 Saturation (94-97) % ABG Ionized Calcium (4.5-5.3) mg/dL ABG Glucose (75-99) mg/dL ABG Lactic Acid (0.5-1.6) mmol/L Sodium (137-145) mmol/L Glucose (74-99) mg/dL POC Glucose (mg/dL) 135 H 147 H (75-99) mg/dL Calcium (8.4-10.2) mg/dL Total Protein (6.3-8.2) g/dL Albumin (3.5-5.0) g/dL Arterial Blood Glucose (75-99) mg/dL Crossmatch 08/29/20 08/29/20 08/29/20 Range/Units 19:15 19:59 20:58 WBC (3.8-10.6) k/uL RBC (4.30-5.90) m/uL Plt Count (150-450) k/uL Neutrophils # (1.3-7.7) k/uL Lymphocytes # (1.0-4.8) k/uL Monocytes # (0-1.0) k/uL Basophils # (0-0.2) k/uL PT (9.0-12.0) sec INR (<1.2) ABG pCO2 (35-45) mmHg ABG pO2 (83-108) mmHg ABG HCO3 (21-25) mmol/L ABG Total CO2 (19-24) mmol/L ABG O2 Saturation (94-97) % ABG Ionized Calcium (4.5-5.3) mg/dL ABG Glucose (75-99) mg/dL ABG Lactic Acid (0.5-1.6) mmol/L Sodium (137-145) mmol/L Glucose (74-99) mg/dL POC Glucose (mg/dL) 112 H 123 H 116 H (75-99) mg/dL Calcium (8.4-10.2) mg/dL Total Protein (6.3-8.2) g/dL Albumin (3.5-5.0) g/dL Arterial Blood Glucose (75-99) mg/dL Crossmatch 08/29/20 08/29/20 08/30/20 Range/Units 22:02 23:05 00:16 WBC (3.8-10.6) k/uL RBC (4.30-5.90) m/uL Plt Count (150-450) k/uL Neutrophils # (1.3-7.7) k/uL Lymphocytes # (1.0-4.8) k/uL Monocytes # (0-1.0) k/uL Basophils # (0-0.2) k/uL PT (9.0-12.0) sec INR (<1.2) ABG pCO2 (35-45) mmHg ABG pO2 (83-108) mmHg ABG HCO3 (21-25) mmol/L ABG Total CO2 (19-24) mmol/L ABG O2 Saturation (94-97) % ABG Ionized Calcium (4.5-5.3) mg/dL ABG Glucose (75-99) mg/dL ABG Lactic Acid (0.5-1.6) mmol/L Sodium (137-145) mmol/L Glucose (74-99) mg/dL POC Glucose (mg/dL) 116 H 146 H 103 H (75-99) mg/dL Calcium (8.4-10.2) mg/dL Total Protein (6.3-8.2) g/dL Albumin (3.5-5.0) g/dL Arterial Blood Glucose (75-99) mg/dL Crossmatch 07/05/1808/30/20 08/30/20 Range/Units 01:07 02:00 03:02 WBC (3.8-10.6) k/uL RBC (4.30-5.90) m/uL Plt Count (150-450) k/uL Neutrophils # (1.3-7.7) k/uL Lymphocytes # (1.0-4.8) k/uL Monocytes # (0-1.0) k/uL Basophils # (0-0.2) k/uL PT (9.0-12.0) sec INR (<1.2) ABG pCO2 (35-45) mmHg ABG pO2 (83-108) mmHg ABG HCO3 (21-25) mmol/L ABG Total CO2 (19-24) mmol/L ABG O2 Saturation (94-97) % ABG Ionized Calcium (4.5-5.3) mg/dL ABG Glucose (75-99) mg/dL ABG Lactic Acid (0.5-1.6) mmol/L Sodium (137-145) mmol/L Glucose (74-99) mg/dL POC Glucose (mg/dL) 106 H 118 H 123 H (75-99) mg/dL Calcium (8.4-10.2) mg/dL Total Protein (6.3-8.2) g/dL Albumin (3.5-5.0) g/dL Arterial Blood Glucose (75-99) mg/dL Crossmatch 08/30/20 08/30/20 08/30/20 Range/Units 03:58 04:00 04:00 WBC 23.5 H (3.8-10.6) k/uL RBC (4.30-5.90) m/uL Plt Count 107 L (150-450) k/uL Neutrophils # 13.3 H (1.3-7.7) k/uL Lymphocytes # 7.5 H (1.0-4.8) k/uL Monocytes # 1.6 H (0-1.0) k/uL Basophils # 0.3 H (0-0.2) k/uL PT (9.0-12.0) sec INR (<1.2) ABG pCO2 (35-45) mmHg ABG pO2 (83-108) mmHg ABG HCO3 (21-25) mmol/L ABG Total CO2 (19-24) mmol/L ABG O2 Saturation (94-97) % ABG Ionized Calcium (4.5-5.3) mg/dL ABG Glucose (75-99) mg/dL ABG Lactic Acid (0.5-1.6) mmol/L Sodium 133 L (137-145) mmol/L Glucose 126 H (74-99) mg/dL POC Glucose (mg/dL) 118 H (75-99) mg/dL Calcium 8.1 L (8.4-10.2) mg/dL Total Protein 5.3 L (6.3-8.2) g/dL Albumin 3.2 L (3.5-5.0) g/dL Arterial Blood Glucose (75-99) mg/dL Crossmatch 08/30/20 08/30/20 Range/Units 05:11 06:56 WBC (3.8-10.6) k/uL RBC (4.30-5.90) m/uL Plt Count (150-450) k/uL Neutrophils # (1.3-7.7) k/uL Lymphocytes # (1.0-4.8) k/uL Monocytes # (0-1.0) k/uL Basophils # (0-0.2) k/uL PT (9.0-12.0) sec INR (<1.2) ABG pCO2 (35-45) mmHg ABG pO2 (83-108) mmHg ABG HCO3 (21-25) mmol/L ABG Total CO2 (19-24) mmol/L ABG O2 Saturation (94-97) % ABG Ionized Calcium (4.5-5.3) mg/dL ABG Glucose (75-99) mg/dL ABG Lactic Acid (0.5-1.6) mmol/L Sodium (137-145) mmol/L Glucose (74-99) mg/dL POC Glucose (mg/dL) 137 H 137 H (75-99) mg/dL Calcium (8.4-10.2) mg/dL Total Protein (6.3-8.2) g/dL Albumin (3.5-5.0) g/dL Arterial Blood Glucose (75-99) mg/dL Crossmatch Microbiology - Last 24 Hours (Table) 08/28/20 18:56 Nasal Screen MRSA/MSSA - Final Nasal Swab - Imaging and Cardiology Chest x-ray: image reviewed Assessment and Plan Assessment: 1. Coronary artery disease, status post three-vessel CABG 2. Heart palpitations, present on admission 3. Leukocytosis, present on admission, unknown source, patient remains afebrile, no evidence of pneumonia or UTI 4. Hypertension 5. Hyperlipidemia, treated with Zetia as patient is ALLERGIC to statins, cholesterol 178, LDL 117 6. Yqi-osqibdt-shdnkeyum diabetes, hemoglobin A1c 6.4% 7. Left lower extremity DVT with anticoagulation for approximately 1 year 8. Rheumatic fever 9. Questionable obstructive sleep apnea without official diagnosis 10. Obesity 11. Postoperative thrombocytopenia, expected Plan: 1. Continue to maximize medical therapy with aspirin, Plavix, Zetia (patient intolerant of statins) 2. No beta christiane per Dr. Moore due to significant bradycardia, continue oral amiodarone 200 mg 3 times a day 3. Wean O2 as tolerated. Encourage incentive spirometry 10 times every hour while awake. Bronchodilators per pulmonology 4. Increase activity, ambulate as tolerated. PT/OT/cardiac rehab following 5. Will monitor daily labs and x-rays. Electrolyte replacement per protocol. 6. Pain control is current medication regimen. 7. GI/DVT prophylaxis 8. Insulin management per primary care service. Patient will need tight blood sugar control to promote sternal union and prevent infection 9. Discontinue Magnolia. Connect Cordis to continuous CVP monitoring 10. Continue chest tubes for another 24 hours 11. Continue Simmons catheter for another 24 hours for strict accurate intake and output. Daily weights 12. More recommendations to follow based on patient's progress Time with Patient: Greater than 30
[2020-08-30] MEDS: ASPIRIN 325 MG TAB PO SCH (08:35)
[2020-08-30] MEDS: CLOPIDOGREL 75 MG TAB PO SCH (08:35)
[2020-08-30] MEDS: EZETIMIBE 10 MG TAB PO SCH (08:35)
[2020-08-30] MEDS: AMIODARONE 200 MG TAB PO SCH ×3 (08:35→22:09)
[2020-08-30] MEDS: IPRATROPIUM-ALBUTEROL 3 ML NEB INHALATION SCH ×4 (08:36→20:44)
[2020-08-30] MEDS: LACTATED RINGERS 1,000 ML IV SCH ×3 (08:36→16:07)
[2020-08-30] MEDS ORDERED: MAGNESIUM HYDROXIDE 2,400 MG/10 ML CUP PO PRN (09:00)
[2020-08-30] MEDS ORDERED: PANTOPRAZOLE 40 MG/10 ML VIAL IVP SCH (09:00)
[2020-08-30] MEDS ORDERED: bisacodyL 10 MG SUPP RECTAL PRN (09:00)
[2020-08-30 09:07] LABS: Glucose,Whole Blood 206 mg/dL (75-99)
[2020-08-30 10:21] LABS: Glucose,Whole Blood 143 mg/dL (75-99)
--- NOTE | 2020-08-30 10:35 | P.PN ---
Subjective Progress Note Date: 08/30/20 Principal diagnosis: Coronary artery disease status post CABG This is a 80-year-old male patient who follows with Dr. Travis is his primary care provider. He has a history of diabetes mellitus, hyperlipidemia, hypertension, irregular heart rate. He had been having issues with palpitations and chest discomfort and was transferred here from an outside facility for the same on 08/25/2020. EKG revealed evidence of multifocal atrial tachycardia with occasional PVCs. Echocardiogram revealed mildly impaired left ventricular systolic function with ejection fraction 45-50%. He is undergone cardiac catheterization on 08/28/2020 and was found to have loss of eye coronary luis antonio deepak, chronically occluded right coronary artery, critical stenosis involving the proximal LAD. He was recommended coronary artery bypass grafting. This was performed today by Dr. Mullen. He received an off-pump CABG 3 with a BRIDGES to the LAD, saphenous vein grafts to the obtuse marginal and posterior descending coronary artery. He is seen in consultation in the ICU. He is currently on pressure support of 5 and CPAP of 5 at 50% FiO2. Gases reveal a pO2 of 70, pCO2 45, pH 7.35. Weaning parameters revealed a tidal volume of 630, minute ventilation 8.6, FVC 1.6, NIF -30 RSBI 27 with a positive cuff leak. Chest x- ray reveals postoperative changes with less than 5% right apical pneumothorax. Bibasilar atelectasis, small effusion with mild venous congestion. Mediastinal and left chest tubes in place. Nasogastric tube in place. White count 22.8. Hemoglobin 14.0. Platelets 116. Sodium 137. Potassium 4.3. Creatinine 0.81. Albumin 3.2. Glucose 123. He is on a nitroglycerin drip at 5 mcg/m. Lactated Ringer's at 50 MLS per hour. Precedex at 0.2 mg/kg/m. PA pressures 39/16. CVP 13. Cardiac output 6.0. Cardiac index 2.5. The patient is seen today 08/30/2020 in follow-up in the intensive care unit. He is currently awake and alert in no acute distress. Currently on 4 L nasal cannula. Lactated Ringer's at 50 MLS per hour. Insulin drip at 1 unit per hour. Chest x-ray reveals atelectasis of the lung bases. Mediastinal and left pleural chest tubes remain in place. No air leaks noted. Right IJ catheter in place. Right radial arterial line in place. White count 20.5. Hemoglobin 14.0. Platelets 107. Sodium 133. Potassium 4.2. Creatinine 0.97. He remains on bronchodilators, appropriate for DVT prophylaxis. Working well with the incentive spirometer obtaining approximately 1500 ML's.. Remains in sinus rhythm. Cardiac output 5.6. Cardiac index 2.3. PA pressure 27/12. CVP 2. Objective - Vital Signs Vital signs: Vital Signs Temp 99.3 F 08/30/20 08:00 Pulse 80 08/30/20 10:00 Resp 17 08/30/20 10:00 BP 111/48 08/30/20 10:00 Pulse Ox 94 L 08/30/20 10:00 Intake & Output 08/29/20 08/30/20 08/30/20 18:59 06:59 18:59 Intake Total 4343.936 3824.471 684.745 Output Total 1190 1035 110 Balance 106.660 568.471 574.745 Weight 124.8 kg Intake: IV 1253 1348 131 ACETAMINOPHEN IV (For NPO 100 100 ) 1,000 mg In Empty Bag 1 bag @ 400 mls/hr IVPB Q6HR [facility] Rx#:[id number] Albumin Human 5% 500 ml 500 250 In Empty Bag 1 bag @ 250 mls/hr IVPB ONCE ONE Rx#: [id number] CO/CI 140 20 Lactated Ringers 1,000 ml 300 600 90 @ 20 mls/hr IV .Q24H [facility] Rx#:[id number] Magnesium Sulfate-D5w Pmx 200 100 1 gm In Dextrose/Water 1 100ml.bag @ 100 mls/hr IVPB Q1H [facility] Rx#: [id number] Pressure bag 108 21 ceFAZolin 2 gm In Sodium 50 50 Chloride 0.9% 50 ml @ 100 mls/hr IVPB ONCE ONE Rx# :[id number] Intake, IV Titration 43.660 5.471 313.745 Amount Albumin Human 5% 500 ml @ 250 0 mls/hr IVPB .[facility] ONE Rx#:[id number] Clevidipine Butyrate 25 2.933 mg In Empty Bag 1 bag @ 1 MG/HR 2 mls/hr IV .Q24H [facility] Rx#:[id number] Insulin Regular 100 unit 1.490 5.471 13.745 In Sodium Chloride 0.9% 100 ml @ Per Protocol IV .Q0M [facility] Rx#:[id number] ceFAZolin 2 gm In Sodium 50 Chloride 0.9% 50 ml @ 100 mls/hr IVPB Q8HR [facility] Rx# :[id number] propofoL 1,000 mg In 39.237 Empty Bag 1 bag @ Titrate IV .Q0M [facility] Rx#: [id number] Oral 250 240 Output: Chest Tube Drainage 230 680 80 Chest Tube Left Pleural/ 230 680 80 Mediastinal Urine 860 355 30 Estimated Blood Loss 100 Other: Voiding Method Indwelling Catheter Indwelling Catheter Indwelling Catheter ABP, PAP, CO, CI - Last Documented Arterial Blood Pressure 98/42 Pulmonary Artery Pressure 28/14 Cardiac Output 4.4 Cardiac Index 1.8 - Exam GENERAL EXAM: Awake, alert very pleasant 80-year-old gentleman, up in a chair at the bedside. On 4 L nasal cannula, in no apparent distress. HEAD: Normocephalic. EYES: Occasional reaction of pupils, equal size. NOSE: Clear with pink turbinates. THROAT:No erythema or exudates. NECK: Right Bieber-Rebecac catheter in place. No masses, no JVD. CHEST: Dressing dry and intact. Heart Hugger in place. Mediastinal and left chest tubes in place. LUNGS: Equal air entry with faint crackles in the posterior bases. CVS: S1 and S2 normal with no audible murmur, regular rhythm. ABDOMEN: No hepatosplenomegaly, normal bowel sounds, no guarding or rigidity. SPINE: No scoliosis or deformity SKIN: No rashes CENTRAL NERVOUS SYSTEM: No focal deficits, tone is normal in all 4 extremities. EXTREMITIES: SCDs on. Right radial arterial line in place. There is no peripheral edema. No clubbing, no cyanosis. Peripheral pulses are intact. - Labs CBC & Chem 7: 08/30/20 04:00 08/30/20 04:00 Labs: Abnormal Lab Results - Last 24 Hours (Table) 08/28/20 08/29/20 08/29/20 Range/Units 15:44 08:56 10:14 WBC (3.8-10.6) k/uL RBC (4.30-5.90) m/uL Plt Count (150-450) k/uL Neutrophils # (1.3-7.7) k/uL Lymphocytes # (1.0-4.8) k/uL Monocytes # (0-1.0) k/uL Basophils # (0-0.2) k/uL PT (9.0-12.0) sec INR (<1.2) ABG pCO2 47 H 46 H (35-45) mmHg ABG pO2 273 H (83-108) mmHg ABG HCO3 28 H 28 H (21-25) mmol/L ABG Total CO2 29 H 29 H (19-24) mmol/L ABG O2 Saturation 100.0 H (94-97) % ABG Ionized Calcium (4.5-5.3) mg/dL ABG Glucose 119 H 132 H (75-99) mg/dL ABG Lactic Acid 1.7 H (0.5-1.6) mmol/L Sodium (137-145) mmol/L Glucose (74-99) mg/dL POC Glucose (mg/dL) (75-99) mg/dL Calcium (8.4-10.2) mg/dL Total Protein (6.3-8.2) g/dL Albumin (3.5-5.0) g/dL Arterial Blood Glucose 119 H 132 H (75-99) mg/dL Crossmatch See Detail 08/29/20 08/29/20 08/29/20 Range/Units 11:02 12:45 12:45 WBC (3.8-10.6) k/uL RBC (4.30-5.90) m/uL Plt Count (150-450) k/uL Neutrophils # (1.3-7.7) k/uL Lymphocytes # (1.0-4.8) k/uL Monocytes # (0-1.0) k/uL Basophils # (0-0.2) k/uL PT 12.2 H (9.0-12.0) sec INR 1.2 H (<1.2) ABG pCO2 (35-45) mmHg ABG pO2 (83-108) mmHg ABG HCO3 27 H (21-25) mmol/L ABG Total CO2 28 H (19-24) mmol/L ABG O2 Saturation 97.6 H (94-97) % ABG Ionized Calcium 4.4 L (4.5-5.3) mg/dL ABG Glucose 131 H (75-99) mg/dL ABG Lactic Acid (0.5-1.6) mmol/L Sodium (137-145) mmol/L Glucose 123 H (74-99) mg/dL POC Glucose (mg/dL) (75-99) mg/dL Calcium 8.2 L (8.4-10.2) mg/dL Total Protein 5.3 L (6.3-8.2) g/dL Albumin 3.2 L (3.5-5.0) g/dL Arterial Blood Glucose 131 H (75-99) mg/dL Crossmatch 08/29/20 08/29/20 08/29/20 Range/Units 12:45 13:15 15:13 WBC 24.9 H (3.8-10.6) k/uL RBC (4.30-5.90) m/uL Plt Count 116 L (150-450) k/uL Neutrophils # 14.9 H (1.3-7.7) k/uL Lymphocytes # 7.5 H (1.0-4.8) k/uL Monocytes # 1.3 H (0-1.0) k/uL Basophils # 0.4 H (0-0.2) k/uL PT (9.0-12.0) sec INR (<1.2) ABG pCO2 49 H (35-45) mmHg ABG pO2 117 H (83-108) mmHg ABG HCO3 27 H (21-25) mmol/L ABG Total CO2 29 H (19-24) mmol/L ABG O2 Saturation 98.5 H (94-97) % ABG Ionized Calcium (4.5-5.3) mg/dL ABG Glucose (75-99) mg/dL ABG Lactic Acid (0.5-1.6) mmol/L Sodium (137-145) mmol/L Glucose (74-99) mg/dL POC Glucose (mg/dL) 115 H (75-99) mg/dL Calcium (8.4-10.2) mg/dL Total Protein (6.3-8.2) g/dL Albumin (3.5-5.0) g/dL Arterial Blood Glucose (75-99) mg/dL Crossmatch 08/29/20 08/29/20 08/29/20 Range/Units 15:14 16:06 16:06 WBC 22.8 H (3.8-10.6) k/uL RBC (4.30-5.90) m/uL Plt Count 116 L (150-450) k/uL Neutrophils # 14.8 H (1.3-7.7) k/uL Lymphocytes # 6.0 H (1.0-4.8) k/uL Monocytes # 1.2 H (0-1.0) k/uL Basophils # (0-0.2) k/uL PT (9.0-12.0) sec INR (<1.2) ABG pCO2 (35-45) mmHg ABG pO2 70 L (83-108) mmHg ABG HCO3 (21-25) mmol/L ABG Total CO2 26 H (19-24) mmol/L ABG O2 Saturation 93.5 L (94-97) % ABG Ionized Calcium (4.5-5.3) mg/dL ABG Glucose (75-99) mg/dL ABG Lactic Acid (0.5-1.6) mmol/L Sodium (137-145) mmol/L Glucose (74-99) mg/dL POC Glucose (mg/dL) 123 H (75-99) mg/dL Calcium (8.4-10.2) mg/dL Total Protein (6.3-8.2) g/dL Albumin (3.5-5.0) g/dL Arterial Blood Glucose (75-99) mg/dL Crossmatch 08/29/20 08/29/20 08/29/20 Range/Units 17:20 18:13 18:39 WBC 18.1 H (3.8-10.6) k/uL RBC 4.27 L (4.30-5.90) m/uL Plt Count 118 L (150-450) k/uL Neutrophils # 13.7 H (1.3-7.7) k/uL Lymphocytes # (1.0-4.8) k/uL Monocytes # 1.2 H (0-1.0) k/uL Basophils # (0-0.2) k/uL PT (9.0-12.0) sec INR (<1.2) ABG pCO2 (35-45) mmHg ABG pO2 (83-108) mmHg ABG HCO3 (21-25) mmol/L ABG Total CO2 (19-24) mmol/L ABG O2 Saturation (94-97) % ABG Ionized Calcium (4.5-5.3) mg/dL ABG Glucose (75-99) mg/dL ABG Lactic Acid (0.5-1.6) mmol/L Sodium (137-145) mmol/L Glucose (74-99) mg/dL POC Glucose (mg/dL) 135 H 147 H (75-99) mg/dL Calcium (8.4-10.2) mg/dL Total Protein (6.3-8.2) g/dL Albumin (3.5-5.0) g/dL Arterial Blood Glucose (75-99) mg/dL Crossmatch 08/29/20 08/29/20 08/29/20 Range/Units 19:15 19:59 20:58 WBC (3.8-10.6) k/uL RBC (4.30-5.90) m/uL Plt Count (150-450) k/uL Neutrophils # (1.3-7.7) k/uL Lymphocytes # (1.0-4.8) k/uL Monocytes # (0-1.0) k/uL Basophils # (0-0.2) k/uL PT (9.0-12.0) sec INR (<1.2) ABG pCO2 (35-45) mmHg ABG pO2 (83-108) mmHg ABG HCO3 (21-25) mmol/L ABG Total CO2 (19-24) mmol/L ABG O2 Saturation (94-97) % ABG Ionized Calcium (4.5-5.3) mg/dL ABG Glucose (75-99) mg/dL ABG Lactic Acid (0.5-1.6) mmol/L Sodium (137-145) mmol/L Glucose (74-99) mg/dL POC Glucose (mg/dL) 112 H 123 H 116 H (75-99) mg/dL Calcium (8.4-10.2) mg/dL Total Protein (6.3-8.2) g/dL Albumin (3.5-5.0) g/dL Arterial Blood Glucose (75-99) mg/dL Crossmatch 08/29/20 08/29/20 08/30/20 Range/Units 22:02 23:05 00:16 WBC (3.8-10.6) k/uL RBC (4.30-5.90) m/uL Plt Count (150-450) k/uL Neutrophils # (1.3-7.7) k/uL Lymphocytes # (1.0-4.8) k/uL Monocytes # (0-1.0) k/uL Basophils # (0-0.2) k/uL PT (9.0-12.0) sec INR (<1.2) ABG pCO2 (35-45) mmHg ABG pO2 (83-108) mmHg ABG HCO3 (21-25) mmol/L ABG Total CO2 (19-24) mmol/L ABG O2 Saturation (94-97) % ABG Ionized Calcium (4.5-5.3) mg/dL ABG Glucose (75-99) mg/dL ABG Lactic Acid (0.5-1.6) mmol/L Sodium (137-145) mmol/L Glucose (74-99) mg/dL POC Glucose (mg/dL) 116 H 146 H 103 H (75-99) mg/dL Calcium (8.4-10.2) mg/dL Total Protein (6.3-8.2) g/dL Albumin (3.5-5.0) g/dL Arterial Blood Glucose (75-99) mg/dL Crossmatch 08/30/20 08/30/20 08/30/20 Range/Units 01:07 02:00 03:02 WBC (3.8-10.6) k/uL RBC (4.30-5.90) m/uL Plt Count (150-450) k/uL Neutrophils # (1.3-7.7) k/uL Lymphocytes # (1.0-4.8) k/uL Monocytes # (0-1.0) k/uL Basophils # (0-0.2) k/uL PT (9.0-12.0) sec INR (<1.2) ABG pCO2 (35-45) mmHg ABG pO2 (83-108) mmHg ABG HCO3 (21-25) mmol/L ABG Total CO2 (19-24) mmol/L ABG O2 Saturation (94-97) % ABG Ionized Calcium (4.5-5.3) mg/dL ABG Glucose (75-99) mg/dL ABG Lactic Acid (0.5-1.6) mmol/L Sodium (137-145) mmol/L Glucose (74-99) mg/dL POC Glucose (mg/dL) 106 H 118 H 123 H (75-99) mg/dL Calcium (8.4-10.2) mg/dL Total Protein (6.3-8.2) g/dL Albumin (3.5-5.0) g/dL Arterial Blood Glucose (75-99) mg/dL Crossmatch 08/30/20 08/30/20 08/30/20 Range/Units 03:58 04:00 04:00 WBC 23.5 H (3.8-10.6) k/uL RBC (4.30-5.90) m/uL Plt Count 107 L (150-450) k/uL Neutrophils # 13.3 H (1.3-7.7) k/uL Lymphocytes # 7.5 H (1.0-4.8) k/uL Monocytes # 1.6 H (0-1.0) k/uL Basophils # 0.3 H (0-0.2) k/uL PT (9.0-12.0) sec INR (<1.2) ABG pCO2 (35-45) mmHg ABG pO2 (83-108) mmHg ABG HCO3 (21-25) mmol/L ABG Total CO2 (19-24) mmol/L ABG O2 Saturation (94-97) % ABG Ionized Calcium (4.5-5.3) mg/dL ABG Glucose (75-99) mg/dL ABG Lactic Acid (0.5-1.6) mmol/L Sodium 133 L (137-145) mmol/L Glucose 126 H (74-99) mg/dL POC Glucose (mg/dL) 118 H (75-99) mg/dL Calcium 8.1 L (8.4-10.2) mg/dL Total Protein 5.3 L (6.3-8.2) g/dL Albumin 3.2 L (3.5-5.0) g/dL Arterial Blood Glucose (75-99) mg/dL Crossmatch 08/30/20 08/30/20 08/30/20 Range/Units 05:11 06:56 08:10 WBC (3.8-10.6) k/uL RBC (4.30-5.90) m/uL Plt Count (150-450) k/uL Neutrophils # (1.3-7.7) k/uL Lymphocytes # (1.0-4.8) k/uL Monocytes # (0-1.0) k/uL Basophils # (0-0.2) k/uL PT (9.0-12.0) sec INR (<1.2) ABG pCO2 (35-45) mmHg ABG pO2 (83-108) mmHg ABG HCO3 (21-25) mmol/L ABG Total CO2 (19-24) mmol/L ABG O2 Saturation (94-97) % ABG Ionized Calcium (4.5-5.3) mg/dL ABG Glucose (75-99) mg/dL ABG Lactic Acid (0.5-1.6) mmol/L Sodium (137-145) mmol/L Glucose (74-99) mg/dL POC Glucose (mg/dL) 137 H 137 H 236 H (75-99) mg/dL Calcium (8.4-10.2) mg/dL Total Protein (6.3-8.2) g/dL Albumin (3.5-5.0) g/dL Arterial Blood Glucose (75-99) mg/dL Crossmatch 08/30/20 08/30/20 Range/Units 09:06 10:19 WBC (3.8-10.6) k/uL RBC (4.30-5.90) m/uL Plt Count (150-450) k/uL Neutrophils # (1.3-7.7) k/uL Lymphocytes # (1.0-4.8) k/uL Monocytes # (0-1.0) k/uL Basophils # (0-0.2) k/uL PT (9.0-12.0) sec INR (<1.2) ABG pCO2 (35-45) mmHg ABG pO2 (83-108) mmHg ABG HCO3 (21-25) mmol/L ABG Total CO2 (19-24) mmol/L ABG O2 Saturation (94-97) % ABG Ionized Calcium (4.5-5.3) mg/dL ABG Glucose (75-99) mg/dL ABG Lactic Acid (0.5-1.6) mmol/L Sodium (137-145) mmol/L Glucose (74-99) mg/dL POC Glucose (mg/dL) 206 H 143 H (75-99) mg/dL Calcium (8.4-10.2) mg/dL Total Protein (6.3-8.2) g/dL Albumin (3.5-5.0) g/dL Arterial Blood Glucose (75-99) mg/dL Crossmatch Microbiology - Last 24 Hours (Table) 08/28/20 18:56 Nasal Screen MRSA/MSSA - Final Nasal Swab Assessment and Plan Assessment: 1 Coronary artery disease status post coronary artery bypass grafting utilizing a BRIDGES to the LAD, saphenous vein grafts to the obtuse marginal and posterior descending coronary arteries. Postoperative day #1. 2 Mechanical ventilator support secondary to above, expected outcome of surgery, recovered and on 4 L nasal cannula 3 Diabetes mellitus 4 Hypertension 5 Hyperlipidemia 6 History of cardiac arrhythmias Plan: The patient was seen and evaluated by Dr. Campbell Chest x-ray and labs reviewed Titrate the FiO2 as tolerated Incentive spirometer, bronchodilators Follow-up chest x-ray in a.m. Increase his activity as tolerated We will continue to follow I, the cosigning physician, performed a history & physical examination of the patient. Lungs sounds faint crackles in the posterior bases Maintaining good O2 saturations in the 90s on 4 L/m per nasal cannula. The mechanical ventilator. I discussed the assessment and plan of care with my nurse practitioner, Anjana Armenta. I attest to the above note as dictated by her.
--- NOTE | 2020-08-30 10:38 | XR ---
EXAMINATION TYPE: XR chest 1V portable DATE OF EXAM: 08/30/2020 COMPARISON: 08/29/2020 HISTORY: Postoperative cardiac surgery TECHNIQUE: Single frontal view of the chest is obtained. FINDINGS: Interval extubation and removal of nasogastric tube. Right pulmonary Sidon-Rebecca catheter stable in position. Left chest ostomy tube stable in position. Patchy opacity in the left lower lobe again demonstrated, improved. Enlarged cardiomediastinal silhouette with postsurgical changes. No pneumothorax or pleural effusion. No acute osseous abnormality. IMPRESSION: 1. Interval extubation and removal of nasogastric tube. 2. Stable swans Rebecca catheter. 3. Left lower lobe patchy opacity significant change. 4. Improving pulmonary vascular congestion, cardiomegaly and postsurgical changes.
[2020-08-30 11:14] LABS: Glucose,Whole Blood 131 mg/dL (75-99)
[2020-08-30 12:01] VITALS: BMI 35.3
[2020-08-30 12:09] LABS: Glucose,Whole Blood 157 mg/dL (75-99)
[2020-08-30 13:08] LABS: Glucose,Whole Blood 200 mg/dL (75-99)
--- NOTE | 2020-08-30 13:14 | P.PN ---
Progress Note - Text Patient is sitting up in a chair doing very well Minimal chest discomfort no real shortness of breath looks very comfortable Pulse rate in 70s, respirations 14-16 Blood pressure 111 of 48 mmHg Breath sounds are reduced bilaterally at the bases Heart sounds S1 and S2 are soft Labs are reviewed White count 18,000 Hemoglobin 13.6 Sodium 137, potassium 4.3, BUN 18 and creatinine 0.8 Megace 1.8 TSH 1.68 Impression Patient presented with very frequent runs of atrial tachycardia and very frequent PVCs Triple-vessel coronary artery disease Ischemic adenopathy ejection fraction 45% with severe left atrial enlargement Hypertension Dyslipidemia Type 2 diabetes Status post coronary artery disease off-pump CABG 3 BRIDGES to LAD, saphenous vein graft to obtuse marginal and PDA Left atrial appendage ligation Plan Continue oral amiodarone and gradually reduce the dose Continue antiplatelet therapy Start statins Pravachol 20 mg by mouth daily Low-dose beta blockers recommended, possibly starting tomorrow
--- NOTE | 2020-08-30 13:27 | P.PN ---
Subjective 74-year-old male was admitted secondary to arrhythmia which appears to be either multifocal atrial tachycardia PVCs no evidence of atrial fibrillation. Patient had auto mantra in the past which did not show any evidence of A. fib either. Patient was on IV heparin which was discontinued. Patient had EF of around 45- 50% does appear to have my live pedal edema patient will be switched from hydrochlorothiazide to Lasix. Patient is also on ROWAN inhibitor with high normal potassium. Will repeat potassium again after starting him on low potassium diet if it continues to be elevated related to either cut down the dose or discontinue ROWAN inhibitor at that time. 08/27/2020 Patient doesn't have any more palpitations at this time. because the decreased ejection fraction cardiology is contemplating radical catheterization tomorrow to rule out any coronary vascular disease. 08/28/2020 Patient had cardiac catheterization which showed occlusion of couple of coronary vessels executors are not available as I do not have the cath reported this time. Cardiology recommended evaluation by thoracic surgery for the coronary artery bypass grafting. Patient doesn't have any chest pain. 08/29/2020 Patient will undergo CABG today 08/30/2020 Patient is status post CABG postoperative day 1. Patient still has a [place]-Rebecca catheter patient has mediastinal and left pleural chest tubes. Patient is on lactated Ringer's at 50 mL per hour blood pressures are borderline cardiac output is 5.6 L/m CVP is low. Constitutional: Denied any fatigue denied any fever. Cardio vascular: denied any chest pain, palpitations Gastrointestinal denied any nausea vomiting Pulmonary: Denied any shortness of breath cough Neurologic denied any new focal deficits All inpatient medications were reviewed and appropriate changes in these medications as dictated in the interval history and assessment and plan. PHYSICAL EXAMINATION: GENERAL: The patient is alert and oriented x3, not in any acute distress. Well developed, well nourished. HEENT: Pupils are round and equally reacting to light. EOMI. No scleral icterus. No conjunctival pallor. Normocephalic, atraumatic. No pharyngeal erythema. No thyromegaly. CARDIOVASCULAR: S1 and S2 present. No murmurs, rubs, or gallops. PULMONARY: Chest is clear to auscultation, no wheezing or crackles. ABDOMEN: Soft, nontender, nondistended, normoactive bowel sounds. No palpable organomegaly. MUSCULOSKELETAL: No joint swelling or deformity. EXTREMITIES: No cyanosis, clubbing, does have bilateral pitting pedal edema NEUROLOGICAL: Gross neurological examination did not reveal any focal deficits. SKIN: No rashes. Assessment and plan -Coronary artery disease: CABG, BRIDGES to LAD, saphenous vein grafts to the obtuse marginal and posterior descending coronary arteries. Postoperative day #1. -Multifocal atrial tachycardia .on admission -Hypertension -hyperlipidemia - type 2 diabetes mellitus -Congestive heart failure chronic systolic dysfunction EF of around 45-50% with mild acute exacerbation patient is presently on Lasix. Patient heart failure is new, because of which patient had cardiac catheterization which showed coronary artery occlusion. Objective - Vital Signs Vital signs: Vital Signs Temp 99.3 F 08/30/20 08:00 Pulse 77 08/30/20 12:16 Resp 17 08/30/20 11:00 BP 101/59 08/30/20 11:00 Pulse Ox 95 08/30/20 11:00 Intake & Output 08/29/20 08/30/20 08/30/20 18:59 06:59 18:59 Intake Total 7861.576 1089.471 973.691 Output Total 1190 1035 190 Balance 106.660 568.471 783.691 Weight 124.8 kg 124.8 kg Intake: IV 1253 1348 177 ACETAMINOPHEN IV (For NPO 100 100 ) 1,000 mg In Empty Bag 1 bag @ 400 mls/hr IVPB Q6HR [facility] Rx#:[id number] Albumin Human 5% 500 ml 500 250 In Empty Bag 1 bag @ 250 mls/hr IVPB ONCE ONE Rx#: [id number] CO/CI 140 20 Lactated Ringers 1,000 ml 300 600 130 @ 20 mls/hr IV .Q24H [facility] Rx#:[id number] Magnesium Sulfate-D5w Pmx 200 100 1 gm In Dextrose/Water 1 100ml.bag @ 100 mls/hr IVPB Q1H [facility] Rx#: [id number] Pressure bag 108 27 ceFAZolin 2 gm In Sodium 50 50 Chloride 0.9% 50 ml @ 100 mls/hr IVPB ONCE ONE Rx# :[id number] Intake, IV Titration 43.660 5.471 316.691 Amount Albumin Human 5% 500 ml @ 250 0 mls/hr IVPB .[facility] Rx#:[id number] Clevidipine Butyrate 25 2.933 mg In Empty Bag 1 bag @ 1 MG/HR 2 mls/hr IV .Q24H [facility] Rx#:[id number] Insulin Regular 100 unit 1.490 5.471 16.691 In Sodium Chloride 0.9% 100 ml @ Per Protocol IV .Q0M [facility] Rx#:[id number] ceFAZolin 2 gm In Sodium 50 Chloride 0.9% 50 ml @ 100 mls/hr IVPB Q8HR [facility] Rx# :[id number] propofoL 1,000 mg In 39.237 Empty Bag 1 bag @ Titrate IV .Q0M [facility] Rx#: [id number] Oral 250 480 Output: Chest Tube Drainage 230 680 130 Chest Tube Left Pleural/ 230 680 130 Mediastinal Urine 860 355 60 Estimated Blood Loss 100 Other: Voiding Method Indwelling Catheter Indwelling Catheter Indwelling Catheter ABP, PAP, CO, CI - Last Documented Arterial Blood Pressure 126/49 Pulmonary Artery Pressure 28/14 Cardiac Output 4.4 Cardiac Index 1.8 - Labs CBC & Chem 7: 08/30/20 04:00 08/30/20 04:00 Labs: Abnormal Lab Results - Last 24 Hours (Table) 08/28/20 08/29/20 08/29/20 Range/Units 15:44 12:45 12:45 WBC (3.8-10.6) k/uL RBC (4.30-5.90) m/uL Plt Count (150-450) k/uL Neutrophils # (1.3-7.7) k/uL Lymphocytes # (1.0-4.8) k/uL Monocytes # (0-1.0) k/uL Basophils # (0-0.2) k/uL PT 12.2 H (9.0-12.0) sec INR 1.2 H (<1.2) ABG pCO2 (35-45) mmHg ABG pO2 (83-108) mmHg ABG HCO3 (21-25) mmol/L ABG Total CO2 (19-24) mmol/L ABG O2 Saturation (94-97) % Sodium (137-145) mmol/L Glucose 123 H (74-99) mg/dL POC Glucose (mg/dL) (75-99) mg/dL Calcium 8.2 L (8.4-10.2) mg/dL Total Protein 5.3 L (6.3-8.2) g/dL Albumin 3.2 L (3.5-5.0) g/dL Crossmatch See Detail 08/29/20 08/29/20 08/29/20 Range/Units 12:45 13:15 15:13 WBC 24.9 H (3.8-10.6) k/uL RBC (4.30-5.90) m/uL Plt Count 116 L (150-450) k/uL Neutrophils # 14.9 H (1.3-7.7) k/uL Lymphocytes # 7.5 H (1.0-4.8) k/uL Monocytes # 1.3 H (0-1.0) k/uL Basophils # 0.4 H (0-0.2) k/uL PT (9.0-12.0) sec INR (<1.2) ABG pCO2 49 H (35-45) mmHg ABG pO2 117 H (83-108) mmHg ABG HCO3 27 H (21-25) mmol/L ABG Total CO2 29 H (19-24) mmol/L ABG O2 Saturation 98.5 H (94-97) % Sodium (137-145) mmol/L Glucose (74-99) mg/dL POC Glucose (mg/dL) 115 H (75-99) mg/dL Calcium (8.4-10.2) mg/dL Total Protein (6.3-8.2) g/dL Albumin (3.5-5.0) g/dL Crossmatch 08/29/20 08/29/20 08/29/20 Range/Units 15:14 16:06 16:06 WBC 22.8 H (3.8-10.6) k/uL RBC (4.30-5.90) m/uL Plt Count 116 L (150-450) k/uL Neutrophils # 14.8 H (1.3-7.7) k/uL Lymphocytes # 6.0 H (1.0-4.8) k/uL Monocytes # 1.2 H (0-1.0) k/uL Basophils # (0-0.2) k/uL PT (9.0-12.0) sec INR (<1.2) ABG pCO2 (35-45) mmHg ABG pO2 70 L (83-108) mmHg ABG HCO3 (21-25) mmol/L ABG Total CO2 26 H (19-24) mmol/L ABG O2 Saturation 93.5 L (94-97) % Sodium (137-145) mmol/L Glucose (74-99) mg/dL POC Glucose (mg/dL) 123 H (75-99) mg/dL Calcium (8.4-10.2) mg/dL Total Protein (6.3-8.2) g/dL Albumin (3.5-5.0) g/dL Crossmatch 08/29/20 08/29/20 08/29/20 Range/Units 17:20 18:13 18:39 WBC 18.1 H (3.8-10.6) k/uL RBC 4.27 L (4.30-5.90) m/uL Plt Count 118 L (150-450) k/uL Neutrophils # 13.7 H (1.3-7.7) k/uL Lymphocytes # (1.0-4.8) k/uL Monocytes # 1.2 H (0-1.0) k/uL Basophils # (0-0.2) k/uL PT (9.0-12.0) sec INR (<1.2) ABG pCO2 (35-45) mmHg ABG pO2 (83-108) mmHg ABG HCO3 (21-25) mmol/L ABG Total CO2 (19-24) mmol/L ABG O2 Saturation (94-97) % Sodium (137-145) mmol/L Glucose (74-99) mg/dL POC Glucose (mg/dL) 135 H 147 H (75-99) mg/dL Calcium (8.4-10.2) mg/dL Total Protein (6.3-8.2) g/dL Albumin (3.5-5.0) g/dL Crossmatch 08/29/20 08/29/20 08/29/20 Range/Units 19:15 19:59 20:58 WBC (3.8-10.6) k/uL RBC (4.30-5.90) m/uL Plt Count (150-450) k/uL Neutrophils # (1.3-7.7) k/uL Lymphocytes # (1.0-4.8) k/uL Monocytes # (0-1.0) k/uL Basophils # (0-0.2) k/uL PT (9.0-12.0) sec INR (<1.2) ABG pCO2 (35-45) mmHg ABG pO2 (83-108) mmHg ABG HCO3 (21-25) mmol/L ABG Total CO2 (19-24) mmol/L ABG O2 Saturation (94-97) % Sodium (137-145) mmol/L Glucose (74-99) mg/dL POC Glucose (mg/dL) 112 H 123 H 116 H (75-99) mg/dL Calcium (8.4-10.2) mg/dL Total Protein (6.3-8.2) g/dL Albumin (3.5-5.0) g/dL Crossmatch 08/29/20 08/29/20 08/30/20 Range/Units 22:02 23:05 00:16 WBC (3.8-10.6) k/uL RBC (4.30-5.90) m/uL Plt Count (150-450) k/uL Neutrophils # (1.3-7.7) k/uL Lymphocytes # (1.0-4.8) k/uL Monocytes # (0-1.0) k/uL Basophils # (0-0.2) k/uL PT (9.0-12.0) sec INR (<1.2) ABG pCO2 (35-45) mmHg ABG pO2 (83-108) mmHg ABG HCO3 (21-25) mmol/L ABG Total CO2 (19-24) mmol/L ABG O2 Saturation (94-97) % Sodium (137-145) mmol/L Glucose (74-99) mg/dL POC Glucose (mg/dL) 116 H 146 H 103 H (75-99) mg/dL Calcium (8.4-10.2) mg/dL Total Protein (6.3-8.2) g/dL Albumin (3.5-5.0) g/dL Crossmatch 08/30/20 08/30/20 08/30/20 Range/Units 01:07 02:00 03:02 WBC (3.8-10.6) k/uL RBC (4.30-5.90) m/uL Plt Count (150-450) k/uL Neutrophils # (1.3-7.7) k/uL Lymphocytes # (1.0-4.8) k/uL Monocytes # (0-1.0) k/uL Basophils # (0-0.2) k/uL PT (9.0-12.0) sec INR (<1.2) ABG pCO2 (35-45) mmHg ABG pO2 (83-108) mmHg ABG HCO3 (21-25) mmol/L ABG Total CO2 (19-24) mmol/L ABG O2 Saturation (94-97) % Sodium (137-145) mmol/L Glucose (74-99) mg/dL POC Glucose (mg/dL) 106 H 118 H 123 H (75-99) mg/dL Calcium (8.4-10.2) mg/dL Total Protein (6.3-8.2) g/dL Albumin (3.5-5.0) g/dL Crossmatch 08/30/20 08/30/20 08/30/20 Range/Units 03:58 04:00 04:00 WBC 23.5 H (3.8-10.6) k/uL RBC (4.30-5.90) m/uL Plt Count 107 L (150-450) k/uL Neutrophils # 13.3 H (1.3-7.7) k/uL Lymphocytes # 7.5 H (1.0-4.8) k/uL Monocytes # 1.6 H (0-1.0) k/uL Basophils # 0.3 H (0-0.2) k/uL PT (9.0-12.0) sec INR (<1.2) ABG pCO2 (35-45) mmHg ABG pO2 (83-108) mmHg ABG HCO3 (21-25) mmol/L ABG Total CO2 (19-24) mmol/L ABG O2 Saturation (94-97) % Sodium 133 L (137-145) mmol/L Glucose 126 H (74-99) mg/dL POC Glucose (mg/dL) 118 H (75-99) mg/dL Calcium 8.1 L (8.4-10.2) mg/dL Total Protein 5.3 L (6.3-8.2) g/dL Albumin 3.2 L (3.5-5.0) g/dL Crossmatch 08/30/20 08/30/20 08/30/20 Range/Units 05:11 06:56 08:10 WBC (3.8-10.6) k/uL RBC (4.30-5.90) m/uL Plt Count (150-450) k/uL Neutrophils # (1.3-7.7) k/uL Lymphocytes # (1.0-4.8) k/uL Monocytes # (0-1.0) k/uL Basophils # (0-0.2) k/uL PT (9.0-12.0) sec INR (<1.2) ABG pCO2 (35-45) mmHg ABG pO2 (83-108) mmHg ABG HCO3 (21-25) mmol/L ABG Total CO2 (19-24) mmol/L ABG O2 Saturation (94-97) % Sodium (137-145) mmol/L Glucose (74-99) mg/dL POC Glucose (mg/dL) 137 H 137 H 236 H (75-99) mg/dL Calcium (8.4-10.2) mg/dL Total Protein (6.3-8.2) g/dL Albumin (3.5-5.0) g/dL Crossmatch 08/30/20 08/30/20 08/30/20 Range/Units 09:06 10:19 11:13 WBC (3.8-10.6) k/uL RBC (4.30-5.90) m/uL Plt Count (150-450) k/uL Neutrophils # (1.3-7.7) k/uL Lymphocytes # (1.0-4.8) k/uL Monocytes # (0-1.0) k/uL Basophils # (0-0.2) k/uL PT (9.0-12.0) sec INR (<1.2) ABG pCO2 (35-45) mmHg ABG pO2 (83-108) mmHg ABG HCO3 (21-25) mmol/L ABG Total CO2 (19-24) mmol/L ABG O2 Saturation (94-97) % Sodium (137-145) mmol/L Glucose (74-99) mg/dL POC Glucose (mg/dL) 206 H 143 H 131 H (75-99) mg/dL Calcium (8.4-10.2) mg/dL Total Protein (6.3-8.2) g/dL Albumin (3.5-5.0) g/dL Crossmatch 08/30/20 08/30/20 Range/Units 12:07 13:07 WBC (3.8-10.6) k/uL RBC (4.30-5.90) m/uL Plt Count (150-450) k/uL Neutrophils # (1.3-7.7) k/uL Lymphocytes # (1.0-4.8) k/uL Monocytes # (0-1.0) k/uL Basophils # (0-0.2) k/uL PT (9.0-12.0) sec INR (<1.2) ABG pCO2 (35-45) mmHg ABG pO2 (83-108) mmHg ABG HCO3 (21-25) mmol/L ABG Total CO2 (19-24) mmol/L ABG O2 Saturation (94-97) % Sodium (137-145) mmol/L Glucose (74-99) mg/dL POC Glucose (mg/dL) 157 H 200 H (75-99) mg/dL Calcium (8.4-10.2) mg/dL Total Protein (6.3-8.2) g/dL Albumin (3.5-5.0) g/dL Crossmatch Microbiology - Last 24 Hours (Table) 08/28/20 18:56 Nasal Screen MRSA/MSSA - Final Nasal Swab
[2020-08-30 14:40] LABS: Glucose,Whole Blood 151 mg/dL (75-99)
[2020-08-30 16:11] LABS: Glucose,Whole Blood 124 mg/dL (75-99)
[2020-08-30 17:30] LABS: Glucose,Whole Blood 155 mg/dL (75-99)
[2020-08-30 18:45] LABS: Glucose,Whole Blood 138 mg/dL (75-99)
[2020-08-30] MEDS: PRAVASTATIN SODIUM 20 MG TAB PO SCH (20:08)
[2020-08-30] MEDS: SENNOSIDES-DOCUSATE SODIUM 1 EACH TAB PO SCH (20:08)
[2020-08-30] MEDS: allopurinoL 300 MG TAB PO SCH (20:08)
[2020-08-30 20:18] LABS: Glucose,Whole Blood 136 mg/dL (75-99)
[2020-08-30 21:08] LABS: Glucose,Whole Blood 140 mg/dL (75-99)
[2020-08-30 22:17] LABS: Glucose,Whole Blood 144 mg/dL (75-99)
[2020-08-30 23:02] LABS: Glucose,Whole Blood 174 mg/dL (75-99)
[2020-08-31 00:05] LABS: Glucose,Whole Blood 141 mg/dL (75-99)
[2020-08-31 01:05] LABS: Glucose,Whole Blood 136 mg/dL (75-99)
[2020-08-31 02:12] LABS: Glucose,Whole Blood 125 mg/dL (75-99)
[2020-08-31 04:09] LABS: Glucose,Whole Blood 127 mg/dL (75-99)
[2020-08-31 04:35] LABS: Basophils # (A) 0.4 k/uL (0-0.2); Basophils % (A) 2 %; Eosinophils # (A) 0.1 k/uL (0-0.7); Eosinophils % (A) 0 %; HCT 37.6 % (39.0-53.0); HGB 12.9 gm/dL (13.0-17.5); Lymphocytes # (A) 9.5 k/uL (1.0-4.8); Lymphocytes % (A) 36 %; MCH 32.4 pg (25.0-35.0); MCHC 34.4 g/dL (31.0-37.0); MCV 94.3 fL (80.0-100.0); Mean Platelet Volume 8.8; Monocytes # (A) 1.9 k/uL (0-1.0); Monocytes % (A) 7 %; Neutrophils # (A) 13.2 k/uL (1.3-7.7); Neutrophils % (A) 50 %; Platelet Count 103 k/uL (150-450); RBC 3.99 m/uL (4.30-5.90); RDW 13.2 % (11.5-15.5); WBC 26.3 k/uL (3.8-10.6)
[2020-08-31 04:43] LABS: Ionized Calcium 4.7 mg/dL (4.5-5.3)
[2020-08-31 04:57] LABS: Albumin 3.3 g/dL (3.5-5.0); Calcium 8.5 mg/dL (8.4-10.2); Total Bilirubin 1.5 mg/dL (0.2-1.3); Total Protein 5.3 g/dL (6.3-8.2)
[2020-08-31 05:13] LABS: Glucose,Whole Blood 151 mg/dL (75-99)
[2020-08-31] MEDS: KETOROLAC 15 MG/ML 1 ML VIAL IVP SCH (06:08)
[2020-08-31 06:18] LABS: Glucose,Whole Blood 141 mg/dL (75-99)
[2020-08-31] MEDS: IPRATROPIUM-ALBUTEROL 3 ML NEB INHALATION SCH ×4 (07:11→20:22)
[2020-08-31 07:13] LABS: Glucose,Whole Blood 152 mg/dL (75-99)
--- NOTE | 2020-08-31 07:37 | P.PN ---
Subjective Progress Note Date: 08/31/20 Principal diagnosis: Coronary artery disease, heart palpitations on admission, leukocytosis on admission with unknown source. Previous medical history of long-standing history of heart palpitations, hypertension, hyperlipidemia, nid-qcofrke-tjxhyfxky diabetes, left lower extremity DVT with anticoagulation for approximately 1 year, rheumatic fever, questionable obstructive sleep apnea without official diagnosis, obesity POD #2 off-pump coronary artery bypass graft 3 with left internal mammary artery to the left anterior descending artery, reverse saphenous vein grafts to the obtuse marginal and posterior descending coronary arteries, endovascular vein harvest of the left greater saphenous vein, ligation of the left atrial appendage with a 45 mm AtriCure clip, epi-aortic ultrasound and intraoperative transesophageal echocardiogram Postoperative thrombocytopenia, expected Postoperative atrial fibrillation, known common occurrence after surgery The patient is currently sitting up in a recliner in the intensive care unit in no acute distress eating breakfast. Denies any pain or shortness of breath. He did go into atrial fibrillation with rapid ventricular response last night, was given IV amiodarone with conversion this morning to sinus rhythm with PVCs. C urrently in sinus rhythm with PVCs, hemodynamically stable on no inotropes or pressors. Oxygenating well on 4 L nasal cannula, able to achieve 1500 mL on his incentive spirometry. Mediastinal/left pleural chest tubes, right radial arterial line remain present. He did ambulate yesterday with a cyst. No other new concerns. Objective - Vital Signs Vital signs: Vital Signs Temp 98.6 F 08/31/20 04:00 Pulse 80 08/31/20 07:23 Resp 12 08/31/20 07:00 BP 118/66 08/31/20 07:00 Pulse Ox 92 L 08/31/20 07:00 Intake & Output 08/30/20 08/31/20 08/31/20 18:59 06:59 18:59 Intake Total 1121.178 560.085 41.484 Output Total 535 611 15 Balance 586.178 -50.915 26.484 Weight 124.8 kg 126.1 kg Intake: IV 315 539.8 39.7 Amiodarone 0.5 infusion 16.7 Amiodarone 1mg infusion 199.8 Amiodarone bolus 100 CO/CI 20 Lactated Ringers 1,000 ml 250 204 20 @ 20 mls/hr IV .Q24H [facility] Rx#:[id number] Pressure bag 45 36 3 Intake, IV Titration 326.178 20.285 1.784 Amount Albumin Human 5% 500 ml @ 250 0 mls/hr IVPB [facility] Rx#:[id number] Insulin Regular 100 unit 26.178 20.285 1.784 In Sodium Chloride 0.9% 100 ml @ Per Protocol IV .Q0M [facility] Rx#:[id number] ceFAZolin 2 gm In Sodium 50 Chloride 0.9% 50 ml @ 100 mls/hr IVPB Q8HR [facility] Rx# :[id number] Oral 480 Output: Chest Tube Drainage 260 280 10 Chest Tube Left Pleural/ 260 280 10 Mediastinal Urine 275 331 5 Other: Voiding Method Indwelling Catheter Indwelling Catheter ABP, PAP, CO, CI - Last Documented Arterial Blood Pressure 95/46 Pulmonary Artery Pressure 28/14 Cardiac Output 4.2 Cardiac Index 1.7 - Exam CONSTITUTIONAL: Appears comfortable, cooperative, no acute distress RESPIRATORY: Lungs sounds diminished bilaterally. Respirations even, nonlabored. Currently on 4 L nasal cannula with oxygen saturation 94%. Able to achieve 1500 mL on incentive spirometry. Strong productive cough. CARDIOVASCULAR: S1, S2 present. Regular rate and rhythm, sinus rhythm with PVCs on telemetry. Sternum stable. Palpable peripheral pulses bilaterally. Trace bilateral upper extremity edema present. No calf pain or tenderness noted. Heart hugger in place with patient demonstrating appropriate use. Antiembolism stockings, SCDs present. GASTROINTESTINAL: Abdomen soft, nontender, nondistended. Active bowel sounds present 4 quadrants. Tolerating diet. Positive flatus GENITOURINARY: Simmons present draining clear, yellow urine. Output overnight 15-35 mL per hour INTEGUMENTARY: Skin is warm and dry with evidence of good perfusion. Anterior chest incision well approximated and covered with dry intact dressing. EVH site well approximated without redness or drainage. NEUROLOGIC: Cranial nerves II through XII intact MUSKULOSKELETAL: Able to move all extremities, strength equal bilaterally PSYCHIATRIC: Alert and oriented to person place and time, appropriate affect, intact judgment and insight INVASIVE LINES AND TUBES: Mediastinal/left pleural chest tubes present and connected to wall suction, no air leaks present, 150 mL serosanguineous drainage overnight, 550 mL in the last 24 hours. Right radial arterial line present. - Allied health notes Allied health notes reviewed: nursing - Labs CBC & Chem 7: 07/04/21 04:06 08/31/20 04:06 Labs: Abnormal Lab Results - Last 24 Hours (Table) 08/30/20 08/30/20 08/30/20 Range/Units 08:10 09:06 10:19 WBC (3.8-10.6) k/uL RBC (4.30-5.90) m/uL Hgb (13.0-17.5) gm/dL Hct (39.0-53.0) % Plt Count (150-450) k/uL Neutrophils # (1.3-7.7) k/uL Lymphocytes # (1.0-4.8) k/uL Monocytes # (0-1.0) k/uL Basophils # (0-0.2) k/uL Sodium (137-145) mmol/L BUN (9-20) mg/dL Glucose (74-99) mg/dL POC Glucose (mg/dL) 236 H 206 H 143 H (75-99) mg/dL Total Bilirubin (0.2-1.3) mg/dL Total Protein (6.3-8.2) g/dL Albumin (3.5-5.0) g/dL 08/30/20 08/30/20 08/30/20 Range/Units 11:13 12:07 13:07 WBC (3.8-10.6) k/uL RBC (4.30-5.90) m/uL Hgb (13.0-17.5) gm/dL Hct (39.0-53.0) % Plt Count (150-450) k/uL Neutrophils # (1.3-7.7) k/uL Lymphocytes # (1.0-4.8) k/uL Monocytes # (0-1.0) k/uL Basophils # (0-0.2) k/uL Sodium (137-145) mmol/L BUN (9-20) mg/dL Glucose (74-99) mg/dL POC Glucose (mg/dL) 131 H 157 H 200 H (75-99) mg/dL Total Bilirubin (0.2-1.3) mg/dL Total Protein (6.3-8.2) g/dL Albumin (3.5-5.0) g/dL 08/30/20 08/30/20 08/30/20 Range/Units 14:37 16:10 17:29 WBC (3.8-10.6) k/uL RBC (4.30-5.90) m/uL Hgb (13.0-17.5) gm/dL Hct (39.0-53.0) % Plt Count (150-450) k/uL Neutrophils # (1.3-7.7) k/uL Lymphocytes # (1.0-4.8) k/uL Monocytes # (0-1.0) k/uL Basophils # (0-0.2) k/uL Sodium (137-145) mmol/L BUN (9-20) mg/dL Glucose (74-99) mg/dL POC Glucose (mg/dL) 151 H 124 H 155 H (75-99) mg/dL Total Bilirubin (0.2-1.3) mg/dL Total Protein (6.3-8.2) g/dL Albumin (3.5-5.0) g/dL 08/30/20 08/30/20 08/30/20 Range/Units 18:44 20:01 21:06 WBC (3.8-10.6) k/uL RBC (4.30-5.90) m/uL Hgb (13.0-17.5) gm/dL Hct (39.0-53.0) % Plt Count (150-450) k/uL Neutrophils # (1.3-7.7) k/uL Lymphocytes # (1.0-4.8) k/uL Monocytes # (0-1.0) k/uL Basophils # (0-0.2) k/uL Sodium (137-145) mmol/L BUN (9-20) mg/dL Glucose (74-99) mg/dL POC Glucose (mg/dL) 138 H 136 H 140 H (75-99) mg/dL Total Bilirubin (0.2-1.3) mg/dL Total Protein (6.3-8.2) g/dL Albumin (3.5-5.0) g/dL 08/30/20 08/30/20 08/31/20 Range/Units 22:16 23:01 00:04 WBC (3.8-10.6) k/uL RBC (4.30-5.90) m/uL Hgb (13.0-17.5) gm/dL Hct (39.0-53.0) % Plt Count (150-450) k/uL Neutrophils # (1.3-7.7) k/uL Lymphocytes # (1.0-4.8) k/uL Monocytes # (0-1.0) k/uL Basophils # (0-0.2) k/uL Sodium (137-145) mmol/L BUN (9-20) mg/dL Glucose (74-99) mg/dL POC Glucose (mg/dL) 144 H 174 H 141 H (75-99) mg/dL Total Bilirubin (0.2-1.3) mg/dL Total Protein (6.3-8.2) g/dL Albumin (3.5-5.0) g/dL 08/31/20 08/31/20 08/31/20 Range/Units 01:03 02:10 04:06 WBC 26.3 H (3.8-10.6) k/uL RBC 3.99 L (4.30-5.90) m/uL Hgb 12.9 L (13.0-17.5) gm/dL Hct 37.6 L (39.0-53.0) % Plt Count 103 L (150-450) k/uL Neutrophils # 13.2 H (1.3-7.7) k/uL Lymphocytes # 9.5 H (1.0-4.8) k/uL Monocytes # 1.9 H (0-1.0) k/uL Basophils # 0.4 H (0-0.2) k/uL Sodium (137-145) mmol/L BUN (9-20) mg/dL Glucose (74-99) mg/dL POC Glucose (mg/dL) 136 H 125 H (75-99) mg/dL Total Bilirubin (0.2-1.3) mg/dL Total Protein (6.3-8.2) g/dL Albumin (3.5-5.0) g/dL 08/31/20 08/31/20 08/31/20 Range/Units 04:06 04:07 05:11 WBC (3.8-10.6) k/uL RBC (4.30-5.90) m/uL Hgb (13.0-17.5) gm/dL Hct (39.0-53.0) % Plt Count (150-450) k/uL Neutrophils # (1.3-7.7) k/uL Lymphocytes # (1.0-4.8) k/uL Monocytes # (0-1.0) k/uL Basophils # (0-0.2) k/uL Sodium 131 L (137-145) mmol/L BUN 26 H (9-20) mg/dL Glucose 121 H (74-99) mg/dL POC Glucose (mg/dL) 127 H 151 H (75-99) mg/dL Total Bilirubin 1.5 H (0.2-1.3) mg/dL Total Protein 5.3 L (6.3-8.2) g/dL Albumin 3.3 L (3.5-5.0) g/dL 08/31/20 08/31/20 Range/Units 06:17 07:11 WBC (3.8-10.6) k/uL RBC (4.30-5.90) m/uL Hgb (13.0-17.5) gm/dL Hct (39.0-53.0) % Plt Count (150-450) k/uL Neutrophils # (1.3-7.7) k/uL Lymphocytes # (1.0-4.8) k/uL Monocytes # (0-1.0) k/uL Basophils # (0-0.2) k/uL Sodium (137-145) mmol/L BUN (9-20) mg/dL Glucose (74-99) mg/dL POC Glucose (mg/dL) 141 H 152 H (75-99) mg/dL Total Bilirubin (0.2-1.3) mg/dL Total Protein (6.3-8.2) g/dL Albumin (3.5-5.0) g/dL - Imaging and Cardiology Chest x-ray: image reviewed Assessment and Plan Assessment: 1. Coronary artery disease, status post three-vessel CABG 2. Heart palpitations, present on admission 3. Leukocytosis, present on admission, unknown source, patient remains afebrile, no evidence of pneumonia or UTI 4. Hypertension 5. Hyperlipidemia, treated with Zetia as patient is ALLERGIC to statins, cholesterol 178, LDL 117 6. Oev-pbodngu-hwivoamiv diabetes, hemoglobin A1c 6.4% 7. Left lower extremity DVT with anticoagulation for approximately 1 year 8. Rheumatic fever 9. Questionable obstructive sleep apnea without official diagnosis 10. Obesity 11. Postoperative thrombocytopenia, expected 12. Postoperative atrial fibrillation, currently sinus with PVCs Plan: 1. Continue to maximize medical therapy with aspirin, Plavix, Zetia. Started on Pravachol per Dr. Moore. Likely will start low-dose beta christiane today and increase as tolerated 2. Continue IV amiodarone, transition to oral amiodarone. No anticoagulation 3. Wean O2 as tolerated. Encourage incentive spirometry 10 times every hour while awake. Bronchodilators per pulmonology 4. Increase activity, ambulate as tolerated. PT/OT/cardiac rehab following 5. Will monitor daily labs and x-rays. Electrolyte replacement per protocol. 6. Pain control is current medication regimen. 7. GI/DVT prophylaxis 8. Insulin management per primary care service. Patient will need tight blood sugar control to promote sternal union and prevent infection 9. Likely will discontinue mediastinal chest tube, keep left pleural chest tube for another 24 hours 10. Discontinue Simmons catheter. May bladder scan and straight cath for greater than 300 mL residual 11. Strict accurate intake and output. Daily weights 12. Will place transfer orders for 3 [facility] cardiac stepdown unit. May transfer when bed available 13. More recommendations to follow based on patient's progress Time with Patient: Greater than 30
[2020-08-31] MEDS ORDERED: INSULN ASP PRT/INSULIN ASPART 100 UNIT/ML 10 ML VIAL SQ SCH (08:00)
[2020-08-31] MEDS: HEPARIN SODIUM,PORCINE/PF 5,000 UNIT/0.5 ML SYRINGE SQ SCH ×2 (08:01→16:57)
[2020-08-31] MEDS: EZETIMIBE 10 MG TAB PO SCH (08:02)
[2020-08-31] MEDS: ASPIRIN 325 MG TAB PO SCH (08:02)
[2020-08-31] MEDS: CLOPIDOGREL 75 MG TAB PO SCH (08:02)
[2020-08-31] MEDS: PANTOPRAZOLE 40 MG TABLET PO SCH (08:02)
[2020-08-31] MEDS: AMIODARONE 200 MG TAB PO SCH ×4 (08:21→22:05)
--- NOTE | 2020-08-31 08:26 | XR ---
EXAMINATION TYPE: XR chest 1V portable DATE OF EXAM: 08/31/2020 COMPARISON: 08/30/2020 and prior HISTORY: Postoperative cardiac surgery TECHNIQUE: Single frontal view of the chest is obtained. FINDINGS: Interval removal of [place] catheter. Stable patchy left lower lobe opacity and mild pulmonary vascular congestion. Stable enlargement of the cardiomediastinal silhouette with postsurgical changes and left chest tube. No pneumothorax or pleural effusion. Stable osseous structures. IMPRESSION: 1. Interval removal of [place] catheter. 2. Stable patchy left lower lobe opacity could be on the basis of atelectasis and/or pneumonia. 3. Stable mild pulmonary vascular congestion.
[2020-08-31 08:31] LABS: Glucose,Whole Blood 132 mg/dL (75-99)
[2020-08-31] MEDS: METOPROLOL TARTRATE 12.5 MG TAB PO SCH ×2 (09:46→22:05)
[2020-08-31] MEDS ORDERED: AMIODARONE 450 MG in DEXTROSE 5% IN WATER 250 ML IV PRN ×2 (09:57)
--- NOTE | 2020-08-31 10:14 | P.PN ---
Subjective Progress Note Date: 08/31/20 Principal diagnosis: Coronary artery disease status post CABG This is a 80-year-old male patient who follows with Dr. Travis is his primary care provider. He has a history of diabetes mellitus, hyperlipidemia, hypertension, irregular heart rate. He had been having issues with palpitations and chest discomfort and was transferred here from an outside facility for the same on 08/25/2020. EKG revealed evidence of multifocal atrial tachycardia with occasional PVCs. Echocardiogram revealed mildly impaired left ventricular systolic function with ejection fraction 45-50%. He is undergone cardiac catheterization on 08/28/2020 and was found to have loss of eye coronary luis antonio deepak, chronically occluded right coronary artery, critical stenosis involving the proximal LAD. He was recommended coronary artery bypass grafting. This was performed today by Dr. Mullen. He received an off-pump CABG 3 with a BRIDGES to the LAD, saphenous vein grafts to the obtuse marginal and posterior descending coronary artery. He is seen in consultation in the ICU. He is currently on pressure support of 5 and CPAP of 5 at 50% FiO2. Gases reveal a pO2 of 70, pCO2 45, pH 7.35. Weaning parameters revealed a tidal volume of 630, minute ventilation 8.6, FVC 1.6, NIF -30 RSBI 27 with a positive cuff leak. Chest x- ray reveals postoperative changes with less than 5% right apical pneumothorax. Bibasilar atelectasis, small effusion with mild venous congestion. Mediastinal and left chest tubes in place. Nasogastric tube in place. White count 22.8. Hemoglobin 14.0. Platelets 116. Sodium 137. Potassium 4.3. Creatinine 0.81. Albumin 3.2. Glucose 123. He is on a nitroglycerin drip at 5 mcg/m. Lactated Ringer's at 50 MLS per hour. Precedex at 0.2 mg/kg/m. PA pressures 39/16. CVP 13. Cardiac output 6.0. Cardiac index 2.5. The patient is seen today 08/30/2020 in follow-up in the intensive care unit. He is currently awake and alert in no acute distress. Currently on 4 L nasal cannula. Lactated Ringer's at 50 MLS per hour. Insulin drip at 1 unit per hour. Chest x-ray reveals atelectasis of the lung bases. Mediastinal and left pleural chest tubes remain in place. No air leaks noted. Right IJ catheter in place. Right radial arterial line in place. White count 20.5. Hemoglobin 14.0. Platelets 107. Sodium 133. Potassium 4.2. Creatinine 0.97. He remains on bronchodilators, appropriate for DVT prophylaxis. Working well with the incentive spirometer obtaining approximately 1500 ML's.. Remains in sinus rhythm. Cardiac output 5.6. Cardiac index 2.3. PA pressure 27/12. CVP 2. The patient is seen today 08/31/2020 in follow-up in the intensive care unit. He is currently sitting up in a chair at the bedside. Awake and alert in no acute distress. He is maintaining good O2 saturations in the 90s on 2 L/m per nasal cannula. Chest x-ray reveals patchy left lower lobe opacity most likely atelectasis versus pneumonia. Stable mild pulmonary vascular congestion. [place]- Rebecca catheter has been removed. Mediastinal and left chest tubes remain in place. No air leaks noted. He did develop an episode of atrial fibrillation with rapid ventricular response and was initiated on amiodarone. Currently at 0.5 mg/m. Lactated Ringer's at 20 ML's per hour. White count 26.3. Hemoglobin 12.9. Platelets 103. Sodium 131. Potassium 4.0. Creatinine 1.05. He remains on bronchodilators. Heparin for DVT prophylaxis. Working well with the incentive spirometer. Pulling approximately 1500 ML's. Objective - Vital Signs Vital signs: Vital Signs Temp 99 F 08/31/20 08:00 Pulse 63 08/31/20 09:00 Resp 16 08/31/20 09:00 BP 115/59 08/31/20 09:00 Pulse Ox 94 L 08/31/20 09:00 Intake & Output 08/30/20 08/31/20 08/31/20 18:59 06:59 18:59 Intake Total 1121.178 560.085 359.283 Output Total 535 611 145 Balance 586.178 -50.915 214.283 Weight 124.8 kg 126.1 kg Intake: IV 315 539.8 115.9 Amiodarone 0.5 infusion 49.9 Amiodarone 1mg infusion 199.8 Amiodarone bolus 100 CO/CI 20 Lactated Ringers 1,000 ml 250 204 60 @ 20 mls/hr IV .Q24H [facility] Rx#:[id number] Pressure bag 45 36 6 Intake, IV Titration 326.178 20.285 3.383 Amount Albumin Human 5% 500 ml @ 250 0 mls/hr IVPB .[facility] Rx#:[id number] Insulin Regular 100 unit 26.178 20.285 3.383 In Sodium Chloride 0.9% 100 ml @ Per Protocol IV .Q0M [facility] Rx#:[id number] ceFAZolin 2 gm In Sodium 50 Chloride 0.9% 50 ml @ 100 mls/hr IVPB Q8HR [facility] Rx# :[id number] Oral 480 240 Output: Chest Tube Drainage 260 280 40 Chest Tube Left Pleural/ 260 280 40 Mediastinal Urine 275 331 105 Other: Voiding Method Indwelling Catheter Indwelling Catheter Indwelling Catheter ABP, PAP, CO, CI - Last Documented Arterial Blood Pressure 120/47 Pulmonary Artery Pressure 28/14 Cardiac Output 4.2 Cardiac Index 1.7 - Exam GENERAL EXAM: Awake, alert very pleasant 80-year-old gentleman, up in a chair at the bedside. On 2 L nasal cannula, in no apparent distress. HEAD: Normocephalic. EYES: Occasional reaction of pupils, equal size. NOSE: Clear with pink turbinates. THROAT:No erythema or exudates. NECK: Right [place]Rebecca catheter in place. No masses, no JVD. CHEST: Dressing dry and intact. Heart Hugger in place. Mediastinal and left chest tubes in place. LUNGS: Equal air entry with faint crackles in the left posterior base. CVS: S1 and S2 normal with no audible murmur, regular rhythm. ABDOMEN: No hepatosplenomegaly, normal bowel sounds, no guarding or rigidity. SPINE: No scoliosis or deformity SKIN: No rashes CENTRAL NERVOUS SYSTEM: No focal deficits, tone is normal in all 4 extremities. EXTREMITIES: SCDs on. Right radial arterial line in place. There is no peripheral edema. No clubbing, no cyanosis. Peripheral pulses are intact. - Labs CBC & Chem 7: 08/31/20 04:06 08/31/20 04:06 Labs: Abnormal Lab Results - Last 24 Hours (Table) 08/30/20 08/30/20 08/30/20 Range/Units 10:19 11:13 12:07 WBC (3.8-10.6) k/uL RBC (4.30-5.90) m/uL Hgb (13.0-17.5) gm/dL Hct (39.0-53.0) % Plt Count (150-450) k/uL Neutrophils # (1.3-7.7) k/uL Lymphocytes # (1.0-4.8) k/uL Monocytes # (0-1.0) k/uL Basophils # (0-0.2) k/uL Sodium (137-145) mmol/L BUN (9-20) mg/dL Glucose (74-99) mg/dL POC Glucose (mg/dL) 143 H 131 H 157 H (75-99) mg/dL Total Bilirubin (0.2-1.3) mg/dL Total Protein (6.3-8.2) g/dL Albumin (3.5-5.0) g/dL 08/30/20 08/30/20 08/30/20 Range/Units 13:07 14:37 16:10 WBC (3.8-10.6) k/uL RBC (4.30-5.90) m/uL Hgb (13.0-17.5) gm/dL Hct (39.0-53.0) % Plt Count (150-450) k/uL Neutrophils # (1.3-7.7) k/uL Lymphocytes # (1.0-4.8) k/uL Monocytes # (0-1.0) k/uL Basophils # (0-0.2) k/uL Sodium (137-145) mmol/L BUN (9-20) mg/dL Glucose (74-99) mg/dL POC Glucose (mg/dL) 200 H 151 H 124 H (75-99) mg/dL Total Bilirubin (0.2-1.3) mg/dL Total Protein (6.3-8.2) g/dL Albumin (3.5-5.0) g/dL 08/30/20 08/30/20 08/30/20 Range/Units 17:29 18:44 20:01 WBC (3.8-10.6) k/uL RBC (4.30-5.90) m/uL Hgb (13.0-17.5) gm/dL Hct (39.0-53.0) % Plt Count (150-450) k/uL Neutrophils # (1.3-7.7) k/uL Lymphocytes # (1.0-4.8) k/uL Monocytes # (0-1.0) k/uL Basophils # (0-0.2) k/uL Sodium (137-145) mmol/L BUN (9-20) mg/dL Glucose (74-99) mg/dL POC Glucose (mg/dL) 155 H 138 H 136 H (75-99) mg/dL Total Bilirubin (0.2-1.3) mg/dL Total Protein (6.3-8.2) g/dL Albumin (3.5-5.0) g/dL 08/30/20 08/30/20 08/30/20 Range/Units 21:06 22:16 23:01 WBC (3.8-10.6) k/uL RBC (4.30-5.90) m/uL Hgb (13.0-17.5) gm/dL Hct (39.0-53.0) % Plt Count (150-450) k/uL Neutrophils # (1.3-7.7) k/uL Lymphocytes # (1.0-4.8) k/uL Monocytes # (0-1.0) k/uL Basophils # (0-0.2) k/uL Sodium (137-145) mmol/L BUN (9-20) mg/dL Glucose (74-99) mg/dL POC Glucose (mg/dL) 140 H 144 H 174 H (75-99) mg/dL Total Bilirubin (0.2-1.3) mg/dL Total Protein (6.3-8.2) g/dL Albumin (3.5-5.0) g/dL 08/31/20 08/31/20 08/31/20 Range/Units 00:04 01:03 02:10 WBC (3.8-10.6) k/uL RBC (4.30-5.90) m/uL Hgb (13.0-17.5) gm/dL Hct (39.0-53.0) % Plt Count (150-450) k/uL Neutrophils # (1.3-7.7) k/uL Lymphocytes # (1.0-4.8) k/uL Monocytes # (0-1.0) k/uL Basophils # (0-0.2) k/uL Sodium (137-145) mmol/L BUN (9-20) mg/dL Glucose (74-99) mg/dL POC Glucose (mg/dL) 141 H 136 H 125 H (75-99) mg/dL Total Bilirubin (0.2-1.3) mg/dL Total Protein (6.3-8.2) g/dL Albumin (3.5-5.0) g/dL 08/31/20 08/31/20 08/31/20 Range/Units 03:08 04:06 04:06 WBC 26.3 H (3.8-10.6) k/uL RBC 3.99 L (4.30-5.90) m/uL Hgb 12.9 L (13.0-17.5) gm/dL Hct 37.6 L (39.0-53.0) % Plt Count 103 L (150-450) k/uL Neutrophils # 13.2 H (1.3-7.7) k/uL Lymphocytes # 9.5 H (1.0-4.8) k/uL Monocytes # 1.9 H (0-1.0) k/uL Basophils # 0.4 H (0-0.2) k/uL Sodium 131 L (137-145) mmol/L BUN 26 H (9-20) mg/dL Glucose 121 H (74-99) mg/dL POC Glucose (mg/dL) 132 H (75-99) mg/dL Total Bilirubin 1.5 H (0.2-1.3) mg/dL Total Protein 5.3 L (6.3-8.2) g/dL Albumin 3.3 L (3.5-5.0) g/dL 08/31/20 08/31/20 08/31/20 Range/Units 04:07 05:11 06:17 WBC (3.8-10.6) k/uL RBC (4.30-5.90) m/uL Hgb (13.0-17.5) gm/dL Hct (39.0-53.0) % Plt Count (150-450) k/uL Neutrophils # (1.3-7.7) k/uL Lymphocytes # (1.0-4.8) k/uL Monocytes # (0-1.0) k/uL Basophils # (0-0.2) k/uL Sodium (137-145) mmol/L BUN (9-20) mg/dL Glucose (74-99) mg/dL POC Glucose (mg/dL) 127 H 151 H 141 H (75-99) mg/dL Total Bilirubin (0.2-1.3) mg/dL Total Protein (6.3-8.2) g/dL Albumin (3.5-5.0) g/dL 08/31/20 Range/Units 07:11 WBC (3.8-10.6) k/uL RBC (4.30-5.90) m/uL Hgb (13.0-17.5) gm/dL Hct (39.0-53.0) % Plt Count (150-450) k/uL Neutrophils # (1.3-7.7) k/uL Lymphocytes # (1.0-4.8) k/uL Monocytes # (0-1.0) k/uL Basophils # (0-0.2) k/uL Sodium (137-145) mmol/L BUN (9-20) mg/dL Glucose (74-99) mg/dL POC Glucose (mg/dL) 152 H (75-99) mg/dL Total Bilirubin (0.2-1.3) mg/dL Total Protein (6.3-8.2) g/dL Albumin (3.5-5.0) g/dL Assessment and Plan Assessment: 1 Coronary artery disease status post coronary artery bypass grafting utilizing a BRIDGES to the LAD, saphenous vein grafts to the obtuse marginal and posterior descending coronary arteries. Postoperative day #2. 2 Mechanical ventilator support secondary to above, expected outcome of surgery, recovered and on 2 L nasal cannula 3 Diabetes mellitus 4 Hypertension 5 Hyperlipidemia 6 History of cardiac arrhythmias 7 Atrial fibrillation with rapid ventricular response, initiated and amiodarone, currently in sinus rhythm with PVCs Plan: The patient was seen and evaluated by Dr. Campbell Chest x-ray and labs reviewed Continue incentive spirometer, bronchodilators Follow-up chest x-ray in a.m. Increase his activity as tolerated We will continue to follow I, the cosigning physician, performed a history & physical examination of the patient. Lungs sounds faint crackles in the left posterior base. Maintaining good O2 saturations in the 90s on 2 L/m per nasal cannula. I discussed the assessment and plan of care with my nurse practitioner, Anjana Armenta. I attest to the above note as dictated by her.
[2020-08-31 11:49] LABS: Glucose,Whole Blood 140 mg/dL (75-99)
[2020-08-31] MEDS: INSULIN ASPART (NovoLOG) 100 UNIT/ML VIAL SQ SCH ×3 (11:54→21:55)
--- NOTE | 2020-08-31 13:01 | P.PN ---
Subjective Patient is sitting up comfortably in a chair line no chest discomfort no shortness of breath Pulse rate in the 60s Blood pressure 106/60 mmHg Breath sounds are reduced bilaterally especially at bases Heart sounds S1 and S2 are soft Hemoglobin 12.9 Sodium 131, potassium 4.0 BUN 26 creatinine 1.0 AST 43 ALT 23 Impression Coronary artery disease status post coronary artery bypass grafting Off-pump surgery Bursts of atrial tachycardia, preoperative, very frequent Frequent PVCs Postoperative atrial fibrillation, paroxysmal Suggest Continue IV amiodarone Continue beta blockers and current therapy including antiplatelet therapy and statins Objective - Vital Signs Vital signs: Vital Signs Temp 99 F 08/31/20 08:00 Pulse 62 08/31/20 11:36 Resp 15 08/31/20 11:00 BP 101/62 08/31/20 11:00 Pulse Ox 93 L 08/31/20 11:00 Intake & Output 08/30/20 08/31/20 08/31/20 18:59 06:59 18:59 Intake Total 1121.178 560.085 725.683 Output Total 535 611 145 Balance 586.178 -50.915 580.683 Weight 124.8 kg 126.1 kg Intake: IV 315 539.8 192.5 Amiodarone 0.5 infusion 66.5 Amiodarone 1mg infusion 199.8 Amiodarone bolus 100 CO/CI 20 Lactated Ringers 1,000 ml 250 204 120 @ 20 mls/hr IV .Q24H [facility] Rx#:[id number] Pressure bag 45 36 6 Intake, IV Titration 326.178 20.285 53.183 Amount Albumin Human 5% 500 ml @ 250 0 mls/hr IVPB .[facility] Rx#:[id number] Amiodarone 450 mg In 49.8 Dextrose 5% in Water 250 ml @ 0.5 MG/MIN 16.667 mls/hr IV .Q15H [facility] Rx#: [id number] Insulin Regular 100 unit 26.178 20.285 3.383 In Sodium Chloride 0.9% 100 ml @ Per Protocol IV .Q0M [facility] Rx#:[id number] ceFAZolin 2 gm In Sodium 50 Chloride 0.9% 50 ml @ 100 mls/hr IVPB Q8HR [facility] Rx# :[id number] Oral 480 480 Output: Chest Tube Drainage 260 280 40 Chest Tube Left Pleural/ 260 280 40 Mediastinal Urine 275 331 105 Other: Voiding Method Indwelling Catheter Indwelling Catheter Indwelling Catheter ABP, PAP, CO, CI - Last Documented Arterial Blood Pressure 120/47 Pulmonary Artery Pressure 28/14 Cardiac Output 4.2 Cardiac Index 1.7 - Labs CBC & Chem 7: 08/31/20 04:06 08/31/20 04:06 Labs: Abnormal Lab Results - Last 24 Hours (Table) 08/30/20 08/30/20 08/30/20 Range/Units 13:07 14:37 16:10 WBC (3.8-10.6) k/uL RBC (4.30-5.90) m/uL Hgb (13.0-17.5) gm/dL Hct (39.0-53.0) % Plt Count (150-450) k/uL Neutrophils # (1.3-7.7) k/uL Lymphocytes # (1.0-4.8) k/uL Monocytes # (0-1.0) k/uL Basophils # (0-0.2) k/uL Sodium (137-145) mmol/L BUN (9-20) mg/dL Glucose (74-99) mg/dL POC Glucose (mg/dL) 200 H 151 H 124 H (75-99) mg/dL Total Bilirubin (0.2-1.3) mg/dL Total Protein (6.3-8.2) g/dL Albumin (3.5-5.0) g/dL 08/30/20 08/30/20 08/30/20 Range/Units 17:29 18:44 20:01 WBC (3.8-10.6) k/uL RBC (4.30-5.90) m/uL Hgb (13.0-17.5) gm/dL Hct (39.0-53.0) % Plt Count (150-450) k/uL Neutrophils # (1.3-7.7) k/uL Lymphocytes # (1.0-4.8) k/uL Monocytes # (0-1.0) k/uL Basophils # (0-0.2) k/uL Sodium (137-145) mmol/L BUN (9-20) mg/dL Glucose (74-99) mg/dL POC Glucose (mg/dL) 155 H 138 H 136 H (75-99) mg/dL Total Bilirubin (0.2-1.3) mg/dL Total Protein (6.3-8.2) g/dL Albumin (3.5-5.0) g/dL 08/30/20 08/30/20 08/30/20 Range/Units 21:06 22:16 23:01 WBC (3.8-10.6) k/uL RBC (4.30-5.90) m/uL Hgb (13.0-17.5) gm/dL Hct (39.0-53.0) % Plt Count (150-450) k/uL Neutrophils # (1.3-7.7) k/uL Lymphocytes # (1.0-4.8) k/uL Monocytes # (0-1.0) k/uL Basophils # (0-0.2) k/uL Sodium (137-145) mmol/L BUN (9-20) mg/dL Glucose (74-99) mg/dL POC Glucose (mg/dL) 140 H 144 H 174 H (75-99) mg/dL Total Bilirubin (0.2-1.3) mg/dL Total Protein (6.3-8.2) g/dL Albumin (3.5-5.0) g/dL 08/31/20 08/31/20 08/31/20 Range/Units 00:04 01:03 02:10 WBC (3.8-10.6) k/uL RBC (4.30-5.90) m/uL Hgb (13.0-17.5) gm/dL Hct (39.0-53.0) % Plt Count (150-450) k/uL Neutrophils # (1.3-7.7) k/uL Lymphocytes # (1.0-4.8) k/uL Monocytes # (0-1.0) k/uL Basophils # (0-0.2) k/uL Sodium (137-145) mmol/L BUN (9-20) mg/dL Glucose (74-99) mg/dL POC Glucose (mg/dL) 141 H 136 H 125 H (75-99) mg/dL Total Bilirubin (0.2-1.3) mg/dL Total Protein (6.3-8.2) g/dL Albumin (3.5-5.0) g/dL 07/04/21 07/04/21 07/04/21 Range/Units 03:08 04:06 04:06 WBC 26.3 H (3.8-10.6) k/uL RBC 3.99 L (4.30-5.90) m/uL Hgb 12.9 L (13.0-17.5) gm/dL Hct 37.6 L (39.0-53.0) % Plt Count 103 L (150-450) k/uL Neutrophils # 13.2 H (1.3-7.7) k/uL Lymphocytes # 9.5 H (1.0-4.8) k/uL Monocytes # 1.9 H (0-1.0) k/uL Basophils # 0.4 H (0-0.2) k/uL Sodium 131 L (137-145) mmol/L BUN 26 H (9-20) mg/dL Glucose 121 H (74-99) mg/dL POC Glucose (mg/dL) 132 H (75-99) mg/dL Total Bilirubin 1.5 H (0.2-1.3) mg/dL Total Protein 5.3 L (6.3-8.2) g/dL Albumin 3.3 L (3.5-5.0) g/dL 08/31/20 08/31/20 08/31/20 Range/Units 04:07 05:11 06:17 WBC (3.8-10.6) k/uL RBC (4.30-5.90) m/uL Hgb (13.0-17.5) gm/dL Hct (39.0-53.0) % Plt Count (150-450) k/uL Neutrophils # (1.3-7.7) k/uL Lymphocytes # (1.0-4.8) k/uL Monocytes # (0-1.0) k/uL Basophils # (0-0.2) k/uL Sodium (137-145) mmol/L BUN (9-20) mg/dL Glucose (74-99) mg/dL POC Glucose (mg/dL) 127 H 151 H 141 H (75-99) mg/dL Total Bilirubin (0.2-1.3) mg/dL Total Protein (6.3-8.2) g/dL Albumin (3.5-5.0) g/dL 08/31/20 08/31/20 Range/Units 07:11 11:48 WBC (3.8-10.6) k/uL RBC (4.30-5.90) m/uL Hgb (13.0-17.5) gm/dL Hct (39.0-53.0) % Plt Count (150-450) k/uL Neutrophils # (1.3-7.7) k/uL Lymphocytes # (1.0-4.8) k/uL Monocytes # (0-1.0) k/uL Basophils # (0-0.2) k/uL Sodium (137-145) mmol/L BUN (9-20) mg/dL Glucose (74-99) mg/dL POC Glucose (mg/dL) 152 H 140 H (75-99) mg/dL Total Bilirubin (0.2-1.3) mg/dL Total Protein (6.3-8.2) g/dL Albumin (3.5-5.0) g/dL
--- NOTE | 2020-08-31 13:19 | P.PN ---
Subjective 74-year-old male was admitted secondary to arrhythmia which appears to be either multifocal atrial tachycardia PVCs no evidence of atrial fibrillation. Patient had auto mantra in the past which did not show any evidence of A. fib either. Patient was on IV heparin which was discontinued. Patient had EF of around 45- 50% does appear to have my live pedal edema patient will be switched from hydrochlorothiazide to Lasix. Patient is also on ROWAN inhibitor with high normal potassium. Will repeat potassium again after starting him on low potassium diet if it continues to be elevated related to either cut down the dose or discontinue ROWAN inhibitor at that time. 08/27/2020 Patient doesn't have any more palpitations at this time. because the decreased ejection fraction cardiology is contemplating radical catheterization tomorrow to rule out any coronary vascular disease. 08/28/2020 Patient had cardiac catheterization which showed occlusion of couple of coronary vessels executors are not available as I do not have the cath reported this time. Cardiology recommended evaluation by thoracic surgery for the coronary artery bypass grafting. Patient doesn't have any chest pain. 08/29/2020 Patient will undergo CABG today 08/30/2020 Patient is status post CABG postoperative day 1. Patient still has a [place]-Rebecca catheter patient has mediastinal and left pleural chest tubes. Patient is on lactated Ringer's at 50 mL per hour blood pressures are borderline cardiac output is 5.6 L/m CVP is low. 08/31/2020 Patient is an not to be short protocol of 70/30. We discontinued the last dose of 70/30 tomorrow morning and patient was started back on metformin, we may need to increase the dose of metformin. Patient has an episode of atrial fibrillation which patient was started on amiodarone presently sinus rhythm. Constitutional: Denied any fatigue denied any fever. Cardio vascular: denied any chest pain, palpitations Gastrointestinal denied any nausea vomiting Pulmonary: Denied any shortness of breath cough Neurologic denied any new focal deficits All inpatient medications were reviewed and appropriate changes in these medica tions as dictated in the interval history and assessment and plan. PHYSICAL EXAMINATION: GENERAL: The patient is alert and oriented x3, not in any acute distress. Well developed, well nourished. HEENT: Pupils are round and equally reacting to light. EOMI. No scleral icterus. No conjunctival pallor. Normocephalic, atraumatic. No pharyngeal erythema. No thyromegaly. CARDIOVASCULAR: S1 and S2 present. No murmurs, rubs, or gallops. PULMONARY: Chest is clear to auscultation, no wheezing or crackles. ABDOMEN: Soft, nontender, nondistended, normoactive bowel sounds. No palpable organomegaly. MUSCULOSKELETAL: No joint swelling or deformity. EXTREMITIES: No cyanosis, clubbing, does have bilateral pitting pedal edema NEUROLOGICAL: Gross neurological examination did not reveal any focal deficits. SKIN: No rashes. Assessment and plan -Coronary artery disease: CABG, BRIDGES to LAD, saphenous vein grafts to the obtuse marginal and posterior descending coronary arteries. Postoperative day #2. -Multifocal atrial tachycardia .on admission -Episode of atrial fibrillation post CABG: Carotids sinus rhythm with amiodarone -Hypertension -hyperlipidemia - type 2 diabetes mellitus : Started on metformin tomorrow need to hold metformin if creatinine worsens -Congestive heart failure chronic systolic dysfunction EF of around 45-50% with mild acute exacerbation patient is presently on Lasix. Patient heart failure is new, because of which patient had cardiac catheterization which showed coronary artery occlusion. Objective - Vital Signs Vital signs: Vital Signs Temp 99.1 F 08/31/20 12:00 Pulse 58 L 08/31/20 12:00 Resp 16 08/31/20 12:00 BP 118/69 08/31/20 12:00 Pulse Ox 95 08/31/20 12:00 Intake & Output 08/30/20 08/31/20 08/31/20 18:59 06:59 18:59 Intake Total 1121.178 560.085 742.283 Output Total 535 611 145 Balance 586.178 -50.915 597.283 Weight 124.8 kg 126.1 kg Intake: IV 315 539.8 192.5 Amiodarone 0.5 infusion 66.5 Amiodarone 1mg infusion 199.8 Amiodarone bolus 100 CO/CI 20 Lactated Ringers 1,000 ml 250 204 120 @ 20 mls/hr IV .Q24H [facility] Rx#:[id number] Pressure bag 45 36 6 Intake, IV Titration 326.178 20.285 69.783 Amount Albumin Human 5% 500 ml @ 250 0 mls/hr IVPB .[facility] Rx#:[id number] Amiodarone 450 mg In 66.4 Dextrose 5% in Water 250 ml @ 0.5 MG/MIN 16.667 mls/hr IV .Q15H [facility] Rx#: [id number] Insulin Regular 100 unit 26.178 20.285 3.383 In Sodium Chloride 0.9% 100 ml @ Per Protocol IV .Q0M [facility] Rx#:[id number] ceFAZolin 2 gm In Sodium 50 Chloride 0.9% 50 ml @ 100 mls/hr IVPB Q8HR [facility] Rx# :[id number] Oral 480 480 Output: Chest Tube Drainage 260 280 40 Chest Tube Left Pleural/ 260 280 40 Mediastinal Urine 275 331 105 Other: Voiding Method Indwelling Catheter Indwelling Catheter Indwelling Catheter ABP, PAP, CO, CI - Last Documented Arterial Blood Pressure 120/47 Pulmonary Artery Pressure 28/14 Cardiac Output 4.2 Cardiac Index 1.7 - Labs CBC & Chem 7: 08/31/20 04:06 08/31/20 04:06 Labs: Abnormal Lab Results - Last 24 Hours (Table) 08/30/20 08/30/20 08/30/20 Range/Units 14:37 16:10 17:29 WBC (3.8-10.6) k/uL RBC (4.30-5.90) m/uL Hgb (13.0-17.5) gm/dL Hct (39.0-53.0) % Plt Count (150-450) k/uL Neutrophils # (1.3-7.7) k/uL Lymphocytes # (1.0-4.8) k/uL Monocytes # (0-1.0) k/uL Basophils # (0-0.2) k/uL Sodium (137-145) mmol/L BUN (9-20) mg/dL Glucose (74-99) mg/dL POC Glucose (mg/dL) 151 H 124 H 155 H (75-99) mg/dL Total Bilirubin (0.2-1.3) mg/dL Total Protein (6.3-8.2) g/dL Albumin (3.5-5.0) g/dL 08/30/20 08/30/20 08/30/20 Range/Units 18:44 20:01 21:06 WBC (3.8-10.6) k/uL RBC (4.30-5.90) m/uL Hgb (13.0-17.5) gm/dL Hct (39.0-53.0) % Plt Count (150-450) k/uL Neutrophils # (1.3-7.7) k/uL Lymphocytes # (1.0-4.8) k/uL Monocytes # (0-1.0) k/uL Basophils # (0-0.2) k/uL Sodium (137-145) mmol/L BUN (9-20) mg/dL Glucose (74-99) mg/dL POC Glucose (mg/dL) 138 H 136 H 140 H (75-99) mg/dL Total Bilirubin (0.2-1.3) mg/dL Total Protein (6.3-8.2) g/dL Albumin (3.5-5.0) g/dL 08/30/20 08/30/20 08/31/20 Range/Units 22:16 23:01 00:04 WBC (3.8-10.6) k/uL RBC (4.30-5.90) m/uL Hgb (13.0-17.5) gm/dL Hct (39.0-53.0) % Plt Count (150-450) k/uL Neutrophils # (1.3-7.7) k/uL Lymphocytes # (1.0-4.8) k/uL Monocytes # (0-1.0) k/uL Basophils # (0-0.2) k/uL Sodium (137-145) mmol/L BUN (9-20) mg/dL Glucose (74-99) mg/dL POC Glucose (mg/dL) 144 H 174 H 141 H (75-99) mg/dL Total Bilirubin (0.2-1.3) mg/dL Total Protein (6.3-8.2) g/dL Albumin (3.5-5.0) g/dL 08/31/20 08/31/20 08/31/20 Range/Units 01:03 02:10 03:08 WBC (3.8-10.6) k/uL RBC (4.30-5.90) m/uL Hgb (13.0-17.5) gm/dL Hct (39.0-53.0) % Plt Count (150-450) k/uL Neutrophils # (1.3-7.7) k/uL Lymphocytes # (1.0-4.8) k/uL Monocytes # (0-1.0) k/uL Basophils # (0-0.2) k/uL Sodium (137-145) mmol/L BUN (9-20) mg/dL Glucose (74-99) mg/dL POC Glucose (mg/dL) 136 H 125 H 132 H (75-99) mg/dL Total Bilirubin (0.2-1.3) mg/dL Total Protein (6.3-8.2) g/dL Albumin (3.5-5.0) g/dL 08/31/20 08/31/20 08/31/20 Range/Units 04:06 04:06 04:07 WBC 26.3 H (3.8-10.6) k/uL RBC 3.99 L (4.30-5.90) m/uL Hgb 12.9 L (13.0-17.5) gm/dL Hct 37.6 L (39.0-53.0) % Plt Count 103 L (150-450) k/uL Neutrophils # 13.2 H (1.3-7.7) k/uL Lymphocytes # 9.5 H (1.0-4.8) k/uL Monocytes # 1.9 H (0-1.0) k/uL Basophils # 0.4 H (0-0.2) k/uL Sodium 131 L (137-145) mmol/L BUN 26 H (9-20) mg/dL Glucose 121 H (74-99) mg/dL POC Glucose (mg/dL) 127 H (75-99) mg/dL Total Bilirubin 1.5 H (0.2-1.3) mg/dL Total Protein 5.3 L (6.3-8.2) g/dL Albumin 3.3 L (3.5-5.0) g/dL 08/31/20 08/31/20 08/31/20 Range/Units 05:11 06:17 07:11 WBC (3.8-10.6) k/uL RBC (4.30-5.90) m/uL Hgb (13.0-17.5) gm/dL Hct (39.0-53.0) % Plt Count (150-450) k/uL Neutrophils # (1.3-7.7) k/uL Lymphocytes # (1.0-4.8) k/uL Monocytes # (0-1.0) k/uL Basophils # (0-0.2) k/uL Sodium (137-145) mmol/L BUN (9-20) mg/dL Glucose (74-99) mg/dL POC Glucose (mg/dL) 151 H 141 H 152 H (75-99) mg/dL Total Bilirubin (0.2-1.3) mg/dL Total Protein (6.3-8.2) g/dL Albumin (3.5-5.0) g/dL 08/31/20 Range/Units 11:48 WBC (3.8-10.6) k/uL RBC (4.30-5.90) m/uL Hgb (13.0-17.5) gm/dL Hct (39.0-53.0) % Plt Count (150-450) k/uL Neutrophils # (1.3-7.7) k/uL Lymphocytes # (1.0-4.8) k/uL Monocytes # (0-1.0) k/uL Basophils # (0-0.2) k/uL Sodium (137-145) mmol/L BUN (9-20) mg/dL Glucose (74-99) mg/dL POC Glucose (mg/dL) 140 H (75-99) mg/dL Total Bilirubin (0.2-1.3) mg/dL Total Protein (6.3-8.2) g/dL Albumin (3.5-5.0) g/dL
[2020-08-31 16:39] LABS: Glucose,Whole Blood 119 mg/dL (75-99)
[2020-08-31 20:56] LABS: Glucose,Whole Blood 116 mg/dL (75-99)
[2020-08-31] MEDS ORDERED: INSULIN NPH 300 UNIT/3 ML VIAL SQ SCH (21:00)
[2020-08-31] MEDS: SENNOSIDES-DOCUSATE SODIUM 1 EACH TAB PO SCH (22:04)
[2020-08-31] MEDS: ACETAMINOPHEN TAB 325 MG TAB PO PRN (22:04)
[2020-08-31] MEDS: allopurinoL 300 MG TAB PO SCH (22:04)
[2020-08-31] MEDS: PRAVASTATIN SODIUM 20 MG TAB PO SCH (22:05)
[2020-09-01] MEDS: HEPARIN SODIUM,PORCINE/PF 5,000 UNIT/0.5 ML SYRINGE SQ SCH ×4 (00:01→17:14)
[2020-09-01 06:28] LABS: Glucose,Whole Blood 98 mg/dL (75-99)
[2020-09-01] MEDS: INSULIN ASPART (NovoLOG) 100 UNIT/ML VIAL SQ SCH ×5 (06:48→21:53)
[2020-09-01] MEDS: PANTOPRAZOLE 40 MG TABLET PO SCH (06:58)
[2020-09-01 07:13] LABS: HCT 40.1 % (39.0-53.0); HGB 13.2 gm/dL (13.0-17.5); MCH 31.3 pg (25.0-35.0); MCHC 32.9 g/dL (31.0-37.0); MCV 95.1 fL (80.0-100.0); Mean Platelet Volume 10.1; Platelet Count 150 k/uL (150-450); RBC 4.21 m/uL (4.30-5.90); RDW 13.1 % (11.5-15.5)
[2020-09-01 07:19] LABS: African American GFR (CKD) >90 (>60 ml/min/1.73 sqM); Anion Gap 7 mmol/L; Blood Urea Nitrogen 33 mg/dL (9-20); Calcium 8.7 mg/dL (8.4-10.2); Carbon Dioxide 27 mmol/L (22-30); Chloride 99 mmol/L (98-107); Glucose 108 mg/dL (74-99); Non-African American GFR(CKD) 81 (>60 ml/min/1.73 sqM); Sodium 133 mmol/L (137-145)
[2020-09-01] MEDS ORDERED: metFORMIN 500 MG TAB PO SCH (07:30)
[2020-09-01 07:53] LABS: Potassium 4.9 mmol/L (3.5-5.1)
--- NOTE | 2020-09-01 08:11 | P.PN ---
Subjective Progress Note Date: 09/01/20 Principal diagnosis: Coronary artery disease, heart palpitations on admission, leukocytosis on admission with unknown source (no sign of infection). Previous medical history of long-standing history of heart palpitations, hypertension, hyperlipidemia, txk-vttotqm-icphobqxn diabetes, left lower extremity DVT with anticoagulation for approximately 1 year, rheumatic fever, questionable obstructive sleep apnea without official diagnosis, obesity POD #3 off-pump coronary artery bypass graft 3 with left internal mammary artery to the left anterior descending artery, reverse saphenous vein grafts to the obtuse marginal and posterior descending coronary arteries, endovascular vein harvest of the left greater saphenous vein, ligation of the left atrial appendage with a 45 mm AtriCure clip, epi-aortic ultrasound and intraoperative transesophageal echocardiogram Postoperative thrombocytopenia, expected Postoperative atrial fibrillation, known common occurrence after surgery The patient is currently sitting up in a recliner on the cardiac stepdown unit in no acute distress eating breakfast. Denies any pain or shortness of breath. Currently in sinus rhythm with occasional PVCs, hemodynamically stable, was started on low-dose beta christiane yesterday. Oxygenating well on room air, able to achieve 1500 mL on his incentive spirometry. He has ambulated with assist. No other new concerns. Objective - Vital Signs Vital signs: Vital Signs Temp 97.5 F L 09/01/20 04:00 Pulse 74 09/01/20 04:00 Resp 20 09/01/20 04:00 BP 103/49 09/01/20 04:00 Pulse Ox 96 09/01/20 04:00 Intake & Output 08/31/20 09/01/20 09/01/20 18:59 06:59 18:59 Intake Total 928.683 Output Total 145 830 Balance 783.683 -830 Weight 125.4 kg Intake: IV 192.5 Amiodarone 0.5 infusion 66.5 Lactated Ringers 1,000 ml 120 @ 20 mls/hr IV .Q24H [facility] Rx#:[id number] Pressure bag 6 Intake, IV Titration 136.183 Amount Amiodarone 450 mg In 132.8 Dextrose 5% in Water 250 ml @ 0.5 MG/MIN 16.667 mls/hr IV .Q15H [facility] Rx#: [id number] Insulin Regular 100 unit 3.383 In Sodium Chloride 0.9% 100 ml @ Per Protocol IV .Q0M [facility] Rx#:[id number] Oral 600 Output: Chest Tube Drainage 40 Chest Tube Left Pleural/ 40 Mediastinal Urine 105 830 Other: Voiding Method Indwelling Catheter Urinal # Voids 2 ABP, PAP, CO, CI - Last Documented Arterial Blood Pressure 120/47 Pulmonary Artery Pressure 28/14 Cardiac Output 4.2 Cardiac Index 1.7 - Exam CONSTITUTIONAL: Appears comfortable, cooperative, no acute distress RESPIRATORY: Lungs sounds diminished bilaterally. Respirations even, nonlabored. Currently on room air with oxygen saturation 96%. Able to achieve 1500 mL on incentive spirometry. Strong productive cough. CARDIOVASCULAR: S1, S2 present. Regular rate and rhythm, sinus rhythm with PVCs on telemetry. Sternum stable. Palpable peripheral pulses bilaterally. Trace generalized extremity edema present. No calf pain or tenderness noted. Heart hugger in place with patient demonstrating appropriate use. Antiembolism stockings, SCDs present. GASTROINTESTINAL: Abdomen soft, nontender, nondistended. Active bowel sounds present 4 quadrants. Tolerating diet. Positive flatus GENITOURINARY: Simmons discontinued yesterday, continues to void clear, yellow urine. INTEGUMENTARY: Skin is warm and dry with evidence of good perfusion. Anterior chest incision well approximated and covered with dry intact dressing. EVH site well approximated without redness or drainage. NEUROLOGIC: Cranial nerves II through XII intact MUSKULOSKELETAL: Able to move all extremities, strength equal bilaterally PSYCHIATRIC: Alert and oriented to person place and time, appropriate affect, intact judgment and insight - Allied health notes Allied health notes reviewed: nursing - Labs CBC & Chem 7: 09/01/20 06:30 09/01/20 06:30 Labs: Abnormal Lab Results - Last 24 Hours (Table) 08/31/20 08/31/20 08/31/20 Range/Units 03:08 11:48 16:38 WBC (3.8-10.6) k/uL RBC (4.30-5.90) m/uL Sodium (137-145) mmol/L BUN (9-20) mg/dL Glucose (74-99) mg/dL POC Glucose (mg/dL) 132 H 140 H 119 H (75-99) mg/dL 08/31/20 09/01/20 09/01/20 Range/Units 20:49 06:30 06:30 WBC 29.0 H (3.8-10.6) k/uL RBC 4.21 L (4.30-5.90) m/uL Sodium 133 L (137-145) mmol/L BUN 33 H (9-20) mg/dL Glucose 108 H (74-99) mg/dL POC Glucose (mg/dL) 116 H (75-99) mg/dL - Imaging and Cardiology Chest x-ray: image reviewed Assessment and Plan Assessment: 1. Coronary artery disease, status post three-vessel CABG 2. Heart palpitations, present on admission 3. Leukocytosis with lymphocytosis, present on admission, unknown source, patient remains afebrile, no evidence of pneumonia or UTI 4. Hypertension 5. Hyperlipidemia, treated, cholesterol 178, LDL 117 6. Uls-lxbhept-zrqtktyfn diabetes, hemoglobin A1c 6.4% 7. Left lower extremity DVT with anticoagulation for approximately 1 year 8. Rheumatic fever 9. Questionable obstructive sleep apnea without official diagnosis 10. Obesity 11. Postoperative thrombocytopenia, expected 12. Postoperative atrial fibrillation, currently sinus with PVCs Plan: 1. Continue to maximize medical therapy with aspirin, Plavix, Zetia, pravachol, low-dose beta christiane. Will increase as tolerated 2. Continue oral amiodarone. No anticoagulation 3. Encourage incentive spirometry 10 times every hour while awake. Bronchodilators per pulmonology 4. Increase activity, ambulate as tolerated. PT/OT/cardiac rehab following. First postoperative shower today 5. Will monitor daily labs and x-rays. Electrolyte replacement per protocol. 6. Pain control is current medication regimen. 7. GI/DVT prophylaxis 8. Insulin management per primary care service. Patient will need tight blood sugar control to promote sternal union and prevent infection 9. Discussed with patient the need to see a management trainee due to leukocytosis with lymphocytosis, inpatient versus outpatient to be determined 10. Strict accurate intake and output. Daily weights 11. Discharge planning in progress. Anticipate discharge to home with home care in the next 24-48 hours 12. More recommendations to follow based on patient's progress Time with Patient: Greater than 30
[2020-09-01] MEDS: MAGNESIUM OXIDE 400 MG TAB PO SCH (08:17)
[2020-09-01] MEDS: FUROSEMIDE 40 MG TAB PO SCH (08:17)
[2020-09-01] MEDS: IPRATROPIUM-ALBUTEROL 3 ML NEB INHALATION SCH ×4 (08:20→19:39)
--- NOTE | 2020-09-01 08:41 | XR ---
EXAMINATION TYPE: XR chest 2V DATE OF EXAM: 09/01/2020 COMPARISON: Chest x-ray 08/31/2020 HISTORY: Status post cardiac surgery TECHNIQUE: Frontal and lateral views of the chest are obtained. FINDINGS: There is been interval development of an obscured right hemidiaphragm due to abnormal incr eased attenuation. There is blunting the right costophrenic angle. No evident pneumothorax. Patient i s post median sternotomy. Cardiac mediastinal silhouette is likely stable. There are overlying artifa cts. Left-sided chest tube has been removed. Aorta is dense. Left atrial appendage clip is again note d. There is blunting the posterior costophrenic angles. Median sternal drain no longer seen. IMPRESSION: Basilar atelectasis, small associated effusions suspected. No evident complication statu s post chest tube removal.
[2020-09-01] MEDS: AMIODARONE 200 MG TAB PO SCH ×3 (09:45→22:06)
[2020-09-01] MEDS: CLOPIDOGREL 75 MG TAB PO SCH (09:46)
[2020-09-01] MEDS: EZETIMIBE 10 MG TAB PO SCH (09:46)
[2020-09-01] MEDS: ASPIRIN 325 MG TAB PO SCH (09:46)
[2020-09-01] MEDS: METOPROLOL TARTRATE 12.5 MG TAB PO SCH ×2 (09:46→22:06)
[2020-09-01 11:59] LABS: Glucose,Whole Blood 123 mg/dL (75-99)
--- NOTE | 2020-09-01 12:23 | P.PN ---
Subjective Progress Note Date: 09/01/20 Principal diagnosis: Coronary artery disease status post CABG This is a 80-year-old male patient who follows with Dr. Travis is his primary care provider. He has a history of diabetes mellitus, hyperlipidemia, hypertension, irregular heart rate. He had been having issues with palpitations and chest discomfort and was transferred here from an outside facility for the same on 08/25/2020. EKG revealed evidence of multifocal atrial tachycardia with occasional PVCs. Echocardiogram revealed mildly impaired left ventricular systolic function with ejection fraction 45-50%. He is undergone cardiac catheterization on 08/28/2020 and was found to have loss of eye coronary luis antonio deepak, chronically occluded right coronary artery, critical stenosis involving the proximal LAD. He was recommended coronary artery bypass grafting. This was performed today by Dr. Mullen. He received an off-pump CABG 3 with a BRIDGES to the LAD, saphenous vein grafts to the obtuse marginal and posterior descending coronary artery. He is seen in consultation in the ICU. He is currently on pressure support of 5 and CPAP of 5 at 50% FiO2. Gases reveal a pO2 of 70, pCO2 45, pH 7.35. Weaning parameters revealed a tidal volume of 630, minute ventilation 8.6, FVC 1.6, NIF -30 RSBI 27 with a positive cuff leak. Chest x- ray reveals postoperative changes with less than 5% right apical pneumothorax. Bibasilar atelectasis, small effusion with mild venous congestion. Mediastinal and left chest tubes in place. Nasogastric tube in place. White count 22.8. Hemoglobin 14.0. Platelets 116. Sodium 137. Potassium 4.3. Creatinine 0.81. Albumin 3.2. Glucose 123. He is on a nitroglycerin drip at 5 mcg/m. Lactated Ringer's at 50 MLS per hour. Precedex at 0.2 mg/kg/m. PA pressures 39/16. CVP 13. Cardiac output 6.0. Cardiac index 2.5. The patient is seen today 08/30/2020 in follow-up in the intensive care unit. He is currently awake and alert in no acute distress. Currently on 4 L nasal cannula. Lactated Ringer's at 50 MLS per hour. Insulin drip at 1 unit per hour. Chest x-ray reveals atelectasis of the lung bases. Mediastinal and left pleural chest tubes remain in place. No air leaks noted. Right IJ catheter in place. Right radial arterial line in place. White count 20.5. Hemoglobin 14.0. Platelets 107. Sodium 133. Potassium 4.2. Creatinine 0.97. He remains on bronchodilators, appropriate for DVT prophylaxis. Working well with the incentive spirometer obtaining approximately 1500 ML's.. Remains in sinus rhythm. Cardiac output 5.6. Cardiac index 2.3. PA pressure 27/12. CVP 2. The patient is seen today 08/31/2020 in follow-up in the intensive care unit. He is currently sitting up in a chair at the bedside. Awake and alert in no acute distress. He is maintaining good O2 saturations in the 90s on 2 L/m per nasal cannula. Chest x-ray reveals patchy left lower lobe opacity most likely atelectasis versus pneumonia. Stable mild pulmonary vascular congestion. [place]- Rebecca catheter has been removed. Mediastinal and left chest tubes remain in place. No air leaks noted. He did develop an episode of atrial fibrillation with rapid ventricular response and was initiated on amiodarone. Currently at 0.5 mg/m. Lactated Ringer's at 20 ML's per hour. White count 26.3. Hemoglobin 12.9. Platelets 103. Sodium 131. Potassium 4.0. Creatinine 1.05. He remains on bronchodilators. Heparin for DVT prophylaxis. Working well with the incentive spirometer. Pulling approximately 1500 ML's. The patient is seen today 09/01/2020 in follow-up on selective care unit. He is currently sitting up in a chair at the bedside. Awake and alert in no acute distress. Breathing a bit easier today compared to yesterday. Maintaining good O2 saturations in the 90s on room air. He's been afebrile. Hemodynamically stable. Chest x-ray reveals some basilar atelectasis. Small effusions. He continues to work well with the incentive spirometer. White count 29.0. Hemoglobin 13.2. Sodium 133. Potassium 4.9. Creatinine 0.91. Glucose 108. He remains on DuoNeb inhalations, heparin for DVT prophylaxis. Oral amiodarone. Objective - Vital Signs Vital signs: Vital Signs Temp 98.3 F 09/01/20 08:35 Pulse 70 09/01/20 12:13 Resp 20 09/01/20 08:35 BP 115/56 09/01/20 08:35 Pulse Ox 94 L 09/01/20 08:35 Intake & Output 08/31/20 09/01/20 09/01/20 18:59 06:59 18:59 Intake Total 928.683 240 Output Total 145 830 Balance 783.683 -830 240 Weight 125.4 kg Intake: IV 192.5 Amiodarone 0.5 infusion 66.5 Lactated Ringers 1,000 ml 120 @ 20 mls/hr IV .Q24H [facility] Rx#:[id number] Pressure bag 6 Intake, IV Titration 136.183 Amount Amiodarone 450 mg In 132.8 Dextrose 5% in Water 250 ml @ 0.5 MG/MIN 16.667 mls/hr IV .Q15H [facility] Rx#: [id number] Insulin Regular 100 unit 3.383 In Sodium Chloride 0.9% 100 ml @ Per Protocol IV .Q0M [facility] Rx#:[id number] Oral 600 240 Output: Chest Tube Drainage 40 Chest Tube Left Pleural/ 40 Mediastinal Urine 105 830 Other: Voiding Method Indwelling Catheter Urinal Urinal # Voids 2 ABP, PAP, CO, CI - Last Documented Arterial Blood Pressure 120/47 Pulmonary Artery Pressure 28/14 Cardiac Output 4.2 Cardiac Index 1.7 - Exam GENERAL EXAM: Awake, alert very pleasant 80-year-old gentleman, up in a chair at the bedside. On room air, in no apparent distress. HEAD: Normocephalic. EYES: Occasional reaction of pupils, equal size. NOSE: Clear with pink turbinates. THROAT:No erythema or exudates. NECK: Right [place]-Rebecca catheter in place. No masses, no JVD. CHEST: Dressing dry and intact. Heart Hugger in place. LUNGS: Equal air entry with faint crackles in the bases. CVS: S1 and S2 normal with no audible murmur, regular rhythm. ABDOMEN: No hepatosplenomegaly, normal bowel sounds, no guarding or rigidity. SPINE: No scoliosis or deformity SKIN: No rashes CENTRAL NERVOUS SYSTEM: No focal deficits, tone is normal in all 4 extremities. EXTREMITIES: SCDs on. There is no peripheral edema. No clubbing, no cyanosis. Peripheral pulses are intact. - Labs CBC & Chem 7: 09/01/20 06:30 09/01/20 06:30 Labs: Abnormal Lab Results - Last 24 Hours (Table) 08/31/20 08/31/20 09/01/20 Range/Units 16:38 20:49 06:30 WBC 29.0 H (3.8-10.6) k/uL RBC 4.21 L (4.30-5.90) m/uL Sodium (137-145) mmol/L BUN (9-20) mg/dL Glucose (74-99) mg/dL POC Glucose (mg/dL) 119 H 116 H (75-99) mg/dL 09/01/20 09/01/20 Range/Units 06:30 11:55 WBC (3.8-10.6) k/uL RBC (4.30-5.90) m/uL Sodium 133 L (137-145) mmol/L BUN 33 H (9-20) mg/dL Glucose 108 H (74-99) mg/dL POC Glucose (mg/dL) 123 H (75-99) mg/dL Assessment and Plan Assessment: 1 Coronary artery disease status post coronary artery bypass grafting utilizing a BRIDGES to the LAD, saphenous vein grafts to the obtuse marginal and posterior descending coronary arteries. Postoperative day #3. 2 Mechanical ventilator support secondary to above, expected outcome of surgery, recovered and on room air 3 Diabetes mellitus 4 Hypertension 5 Hyperlipidemia 6 History of cardiac arrhythmias 7 Atrial fibrillation with rapid ventricular response, initiated and amiodarone, currently in sinus rhythm with PVCs 8 Leukocytosis, suspect reactive Plan: The patient was seen and evaluated by Dr. Campbell Chest x-ray and labs reviewed Will check a pro-calcitonin Continue incentive spirometer, bronchodilators Increase his activity as tolerated We will continue to follow I, the cosigning physician, performed a history & physical examination of the patient. Lungs sounds faint crackles in the bases. Maintaining good O2 saturations in the 90s on room air. I discussed the assessment and plan of care with my nurse practitioner, Anjana Armenta. I attest to the above note as dictated by her.
--- NOTE | 2020-09-01 12:35 | P.PN ---
Subjective Patient is resting comfortably in a chair No significant chest discomfort Does not appear to be short of breath On examination Afebrile 98.3F, pulse rate in the 70s Blood pressure 115/56. His mercury Breath sounds are reduced bilaterally at bases Heart sounds are regular No lower extremity edema Impression Multivessel coronary artery disease status post coronary artery bypass grafting Frequent runs of nonsustained atrial tachycardia, focal Postoperative atrial fibrillation Frequent PVCs Mild cardio myopathy, ischemic Plan Short term amiodarone for 4-6 weeks only Dual antiplatelet therapy Metoprolol, maximize dose Continue Pravachol He will follow-up with me in the future and I will address his atrial tachycardia as well as PVCs and coronary biopsy as an outpatient Objective - Vital Signs Vital signs: Vital Signs Temp 98.3 F 09/01/20 12:05 Pulse 70 09/01/20 12:13 Resp 18 09/01/20 12:05 BP 145/67 09/01/20 12:05 Pulse Ox 94 L 09/01/20 12:05 Intake & Output 08/31/20 09/01/20 09/01/20 18:59 06:59 18:59 Intake Total 928.683 240 Output Total 145 830 Balance 783.683 -830 240 Weight 125.4 kg Intake: IV 192.5 Amiodarone 0.5 infusion 66.5 Lactated Ringers 1,000 ml 120 @ 20 mls/hr IV .Q24H [facility] Rx#:[id number] Pressure bag 6 Intake, IV Titration 136.183 Amount Amiodarone 450 mg In 132.8 Dextrose 5% in Water 250 ml @ 0.5 MG/MIN 16.667 mls/hr IV .Q15H PRN Rx#: [id number] Insulin Regular 100 unit 3.383 In Sodium Chloride 0.9% 100 ml @ Per Protocol IV .Q0M [facility] Rx#:[id number] Oral 600 240 Output: Chest Tube Drainage 40 Chest Tube Left Pleural/ 40 Mediastinal Urine 105 830 Other: Voiding Method Indwelling Catheter Urinal Urinal # Voids 2 ABP, PAP, CO, CI - Last Documented Arterial Blood Pressure 120/47 Pulmonary Artery Pressure 28/14 Cardiac Output 4.2 Cardiac Index 1.7 - Labs CBC & Chem 7: 09/01/20 06:30 09/01/20 06:30 Labs: Abnormal Lab Results - Last 24 Hours (Table) 08/31/20 08/31/20 09/01/20 Range/Units 16:38 20:49 06:30 WBC 29.0 H (3.8-10.6) k/uL RBC 4.21 L (4.30-5.90) m/uL Sodium (137-145) mmol/L BUN (9-20) mg/dL Glucose (74-99) mg/dL POC Glucose (mg/dL) 119 H 116 H (75-99) mg/dL 09/01/20 09/01/20 Range/Units 06:30 11:55 WBC (3.8-10.6) k/uL RBC (4.30-5.90) m/uL Sodium 133 L (137-145) mmol/L BUN 33 H (9-20) mg/dL Glucose 108 H (74-99) mg/dL POC Glucose (mg/dL) 123 H (75-99) mg/dL
[2020-09-01] MEDS: ACETAMINOPHEN TAB 325 MG TAB PO PRN (12:41)
--- NOTE | 2020-09-01 17:04 | P.PN ---
Progress Note - Text Progress Note Date: 09/01/20 Presenting complaint: Arrhythmia Hospital course: 74-year-old male, who follows with Dr. Hiren Travis was admitted secondary to arrhythmia which appears to be either multifocal atrial tachycardia PVCs . Cardiac catheterization August 28: Calcified coronary arteries, chronically occluded RCA, critical stenosis of proximal LAD.-By Dr. Dietz . August 29: Underwent coronary bypass by Dr. Mullen. Today: Sitting up in a chair. Has been ambulatory. Breathing stable. Oral intake fair. Telemetry: Sinus rhythm with PVCs. No Chest pain Review of systems: Was done for constitutional, cardiovascular, GI, pulmonary. relevant finding as above Active Medications Acetaminophen (Acetaminophen Tab 325 Mg Tab) 650 mg PO Q4HR PRN PRN Reason: Fever and/ or Pain Last Admin: 09/01/20 12:41 Dose: 650 mg Documented by: Albuterol/Ipratropium (Ipratropium-Albuterol 3 Ml Neb) 3 ml INHALATION RT-Q2H PRN PRN Reason: Shortness Of Breath Or Wheezing Albuterol/Ipratropium (Ipratropium-Albuterol 3 Ml Neb) 3 ml INHALATION RT-QID [facility] Last Admin: 09/01/20 11:57 Dose: 3 ml Documented by: Allopurinol (Allopurinol 300 Mg Tab) 300 mg PO HS [facility] Last Admin: 08/31/20 22:04 Dose: 300 mg Documented by: Amiodarone HCl (Amiodarone 200 Mg Tab) 200 mg PO TID [facility] Last Admin: 09/01/20 09:45 Dose: 200 mg Documented by: Aspirin (Aspirin 325 Mg Tab) 325 mg PO DAILY [facility] Last Admin: 09/01/20 09:46 Dose: 325 mg Documented by: Benzocaine/Menthol (Benzocaine/Menthol Lozeng 1 Each Lozenge) 1 each MUCOUS MEM Q2H PRN PRN Reason: Sore Throat Bisacodyl (Bisacodyl 10 Mg Supp) 10 mg RECTAL DAILY PRN PRN Reason: Constipation Clopidogrel Bisulfate (Clopidogrel 75 Mg Tab) 75 mg PO DAILY [facility] Last Admin: 09/01/20 09:46 Dose: 75 mg Documented by: Ezetimibe (Ezetimibe 10 Mg Tab) 10 mg PO DAILY [facility] Last Admin: 09/01/20 09:46 Dose: 10 mg Documented by: Heparin Sodium (Porcine) (Heparin Sodium,Porcine/Pf 5,000 Unit/0.5 Ml Syringe) 5,000 unit SQ Q8HR [facility] Last Admin: 09/01/20 09:45 Dose: 5,000 unit Documented by: Amiodarone HCl 150 mg/ (Dextrose/Water) 103 mls @ 618 mls/hr IV .Q10M PRN; Protocol PRN Reason: A.FIB/FLUTTER Last Admin: 08/30/20 22:48 Dose: 618 mls/hr Documented by: Insulin Aspart (Insulin Aspart (Novolog) 100 Unit/Ml Vial) 0 unit SQ [facility]; Protocol Last Admin: 09/01/20 12:20 Dose: Not Given Documented by: Insulin Human NPH (Insulin Nph 300 Unit/3 Ml Vial) 13 unit 0.1 unit/kg (13 unit) SQ [facility] Last Admin: 08/31/20 22:05 Dose: Not Given Documented by: Magnesium Hydroxide (Magnesium Hydroxide 2,400 Mg/10 Ml Cup) 2,400 mg PO BID PRN PRN Reason: Constipation Metformin HCl (Metformin 500 Mg Tab) 500 mg PO BID-W/MEALS [facility] Last Admin: 09/01/20 06:58 Dose: 500 mg Documented by: Metoprolol Tartrate (Metoprolol Tartrate 12.5 Mg Tab) 12.5 mg PO BID [facility] Last Admin: 09/01/20 09:46 Dose: 12.5 mg Documented by: Miscellaneous Information (Potassium Replacement Protocol 1 Each Misc) 1 each MISCELLANE DAILY PRN; Protocol PRN Reason: Per Protocol Miscellaneous Information (Magnesium Replacement Protocol 1 Each Misc) 1 each MISCELLANE DAILY PRN; Protocol PRN Reason: Per Protocol Miscellaneous Information (Phosphorus Replacement Protoco 1 Each Misc) 1 each MISCELLANE DAILY PRN; Protocol PRN Reason: Per Protocol Ondansetron HCl (Ondansetron 4 Mg/2 Ml Vial) 4 mg IVP Q6HR PRN PRN Reason: Nausea And Vomiting Pantoprazole Sodium (Pantoprazole 40 Mg Tablet) 40 mg PO AC-BRKFST [facility] Last Admin: 09/01/20 06:58 Dose: 40 mg Documented by: Pravastatin Sodium (Pravastatin Sodium 20 Mg Tab) 20 mg PO [facility] Last Admin: 08/31/20 22:05 Dose: 20 mg Documented by: Senna/Docusate Sodium (Sennosides-Docusate Sodium 1 Each Tab) 2 each PO HS [facility] Last Admin: 08/31/20 22:04 Dose: 2 each Documented by: Sodium Chloride (Sodium Chloride 0.9% Flush 10 Ml Syringe) 10 ml IV BID [facility] Last Admin: 09/01/20 09:46 Dose: 10 ml Documented by: On examination: VITAL SIGNS: 98.5, 72, 18, 106/71, 94% room air GENERAL APPEARANCE: Sitting up in a chair, awake, comfortable HEENT: Normal external appearance of nose and ear. Oral cavity normal EYES: Pupils equal. Conjunctiva normal. NECK: JVD not raised. Mass not palpable. RESPIRATORY: Respiratory effort normal. Lungs clear to auscultation. CARDIOVASCULAR: First and second sounds normal. No edema. ABDOMEN: Soft. Liver and spleen not palpable. No tenderness. No mass palpable. PSYCHIATRY: Alert and oriented x3. Mood and affect normal. Investigations: WBC 29 hemoglobin 13.2 potassium 4.9 crit and 0.91 Carotid Doppler: No significant stenosis. Moderate atherosclerotic plaque at bilateral common Artery bifurcations 2-D echocardiogram: EF 45-50%. Assessment and plan: -Multifocal atrial tachycardia On Lopressor -Triple-vessel coronary artery disease, followed by coronary bypass Aspirin, Plavix, Lopressor, Pravachol -Obesity BMI 35.5 Dietitian. Weight loss measures. Follow-up with PCP -Diabetes mellitus type 2 Glucophage. Follow Accu-Cheks. Increase dose of Glucophage 1000 mg twice daily. DC NPH. -Hyperlipidemia Pravachol -Essential hypertension Lopressor, and Vasotec 2.5 mg daily at bedtime Care was discussed with the patient. Continue current medications. Add Vasotec 2.5 mg daily at bedtime
[2020-09-01] MEDS: metFORMIN 500 MG TAB PO SCH (17:14)
[2020-09-01 17:18] LABS: Glucose,Whole Blood 122 mg/dL (75-99)
--- NOTE | 2020-09-01 18:38 | P.CONS ---
History of Present Illness - Reason for Consult Consult date: 09/01/20 Leukocytosis Requesting physician: Kimberly Tapia - Chief Complaint Status post CABG - History of Present Illness Patient was brought to [facility] on 08/25/20 as a transfer from an outside facility. Patient has a history of palpitations, over the past few days he started having increased shortness of breath, swelling in his legs, PCP Dr. Travis advised him to go to the emergency department to be evaluated by Cardiology. He had elevated troponin, leukocytosis and an irregular heart rate. he had CABG 08/29/20. He is doing pretty well postop. He has no significant complaints. Patient denies any history of an elevated white count that he is aware of, he has no personal history of cancer. He denies any unintentional weight loss, loss of appetite, unusual pain, lymphadenopathy, difficulty swallowing, night sweats. Patient states he has pretty decent energy and his appetite was much better prior to surgery but, at starting to come back. He denied any prolonged recent illnesses or lingering infection. He is a diabetic. Review of Systems 10 point review of systems is negative except as stated in HPI Past Medical History Past Medical History: Diabetes Mellitus, Deep Vein Thrombosis (DVT), Hyperlipidemia, Hypertension Additional Past Medical History / Comment(s): DVT - 1996, irregular heart rhythm, rheumatic fever History of Any Multi-Drug Resistant Organisms: None Reported Past Surgical History: Adenoidectomy, Appendectomy, Tonsillectomy Past Psychological History: No Psychological Hx Reported Smoking Status: Never smoker Past Alcohol Use History: Rare Past Drug Use History: None Reported - Past Family History Mother Family Medical History: Congestive Heart Failure (CHF) Father Family Medical History: CVA/TIA Medications and Allergies Home Medications Medication Instructions Recorded Confirmed Type Aspirin EC [Ecotrin Low Dose] 81 mg PO HS 08/25/20 08/25/20 History Enalapril Maleate [Vasotec] 10 mg PO HS 08/25/20 08/25/20 History Ezetimibe [Zetia] 10 mg PO DAILY 08/25/20 08/25/20 History Magnesium Oxide [Mag-Ox] 400 mg PO DAILY 08/25/20 08/25/20 History allopurinoL [Zyloprim] 300 mg PO DAILY 08/25/20 08/25/20 History hydroCHLOROthiazide [Hydrodiuril] 25 mg PO DAILY 08/25/20 08/25/20 History metFORMIN HCL ER [Glucophage Xr] 500 mg PO BID 08/25/20 08/25/20 History Allergies Allergy/AdvReac Type Severity Reaction Status Date / Time [id number] Reductase AdvReac "muscle Verified 08/29/20 06:28 Inhibitor pain/soreness" Physical Exam Vitals: Vital Signs Temp Pulse Pulse Resp BP BP Pulse Ox 09/01/20 15:35 98.6 F 72 18 106/71 94 L 09/01/20 12:13 70 09/01/20 12:05 98.3 F 74 18 145/67 94 L 09/01/20 12:04 74 09/01/20 08:35 98.3 F 58 L 16 115/56 94 L 09/01/20 08:31 62 09/01/20 08:23 64 91 L 09/01/20 04:00 97.5 F L 74 20 103/49 96 09/01/20 00:00 97.6 F 72 16 117/58 94 L 08/31/20 20:32 60 08/31/20 20:22 62 08/31/20 20:00 97.6 F 63 18 129/60 94 L Intake and Output 09/01/20 09/01/20 09/01/20 06:59 14:59 22:59 Intake Total 480 Output Total 580 250 Balance -580 230 Intake: Oral 480 Output: Urine 580 250 Other: Voiding Method Urinal Urinal Urinal # Voids 2 Weight 125.4 kg - Constitutional General appearance: cooperative, no acute distress, obese - EENT Eyes: anicteric sclerae, EOMI ENT: hearing grossly normal, normal oropharynx - Neck Neck: no lymphadenopathy - Respiratory Respiratory: bilateral: CTA - Cardiovascular Heart sounds: normal: S1, S2 Abnormal Heart Sounds: no systolic murmur, no diastolic murmur, no rub, no S3 Gallop, no S4 Gallop, no click, no other leg Peripheral Edema: bilateral: Trace - Gastrointestinal General gastrointestinal: no absent bowel sounds, no decreased bowel sounds, no distended, no hepatomegaly, no hyperactive bowel sounds, normal bowel sounds, no organomegaly, no rigid, no scaphoid, soft, no splenomegaly, no tenderness, no umbilical hernia, no ventral hernia - Integumentary Integumentary: normal - Neurologic Neurologic: CNII-XII intact - Musculoskeletal Musculoskeletal: strength equal bilaterally - Psychiatric Psychiatric: A&O x's 3, appropriate affect, intact judgment & insight Results CBC & Chem 7: 09/01/20 06:30 09/01/20 06:30 Labs: Abnormal Lab Results - Last 24 Hours (Table) 08/31/20 09/01/20 09/01/20 Range/Units 20:49 06:30 06:30 WBC 29.0 H (3.8-10.6) k/uL RBC 4.21 L (4.30-5.90) m/uL Sodium 133 L (137-145) mmol/L BUN 33 H (9-20) mg/dL Glucose 108 H (74-99) mg/dL POC Glucose (mg/dL) 116 H (75-99) mg/dL 09/01/20 09/01/20 Range/Units 11:55 17:16 WBC (3.8-10.6) k/uL RBC (4.30-5.90) m/uL Sodium (137-145) mmol/L BUN (9-20) mg/dL Glucose (74-99) mg/dL POC Glucose (mg/dL) 123 H 122 H (75-99) mg/dL Assessment and Plan (1) Leukocytosis Narrative/Plan: Patient's differential is showing a slight elevation in neutrophil, lymphocyte and monocyte cell lines. Will request labs from primary care to see if this has been present in some form and what time frame. Suspect reactive to patient's condition- suspected cardiac event prior to admission, stress. Peripheral smear requested. Differential has been slowly creaping up throughout hospitalization. Recommend CBC in 1 week to see if WBC/diff is stable From a Hematology standpoint patient can be discharged once he is cleared by Attending and CTS. We will work with the Primary Care Physician if patient needs further workup. Current Visit: Yes Status: Acute Priority: Medium Code(s): D72.829 - ELEVATED WHITE BLOOD CELL COUNT, UNSPECIFIED SNOMED Code(s): 230083080
[2020-09-01 20:49] LABS: RBC 4.18 m/uL (4.30-5.90); WBC 25.3 k/uL (3.8-10.6)
[2020-09-01 20:50] LABS: HCT 39.9 % (39.0-53.0); HGB 12.8 gm/dL (13.0-17.5); MCH 30.6 pg (25.0-35.0); MCHC 32.1 g/dL (31.0-37.0); MCV 95.4 fL (80.0-100.0); Mean Platelet Volume 9.6; Platelet Count 166 k/uL (150-450); RDW 13.6 % (11.5-15.5)
[2020-09-01 20:58] LABS: Glucose,Whole Blood 105 mg/dL (75-99)
[2020-09-01 21:07] LABS: Band Neutrophils % 1 %; Basophils # (M) 0.25 k/uL (0-0.2); Lymphocytes # (M) 13.92 k/uL (1.0-4.8); Monocytes # (M) 0.76 k/uL (0-1.0); Neutrophils % (M) 40 %; Nucleated Red Blood Cells 0 /100 WBC (0-0); Reactive Lymphocytes Present; Total Cells Counted 100
[2020-09-01 21:08] LABS: Polychromasia Present
[2020-09-01] MEDS: SENNOSIDES-DOCUSATE SODIUM 1 EACH TAB PO SCH (22:06)
[2020-09-01] MEDS: PRAVASTATIN SODIUM 20 MG TAB PO SCH (22:06)
[2020-09-01] MEDS: allopurinoL 300 MG TAB PO SCH (22:06)
[2020-09-02] MEDS: HEPARIN SODIUM,PORCINE/PF 5,000 UNIT/0.5 ML SYRINGE SQ SCH ×2 (00:13→08:31)
[2020-09-02 06:06] LABS: Glucose,Whole Blood 107 mg/dL (75-99)
[2020-09-02] MEDS: INSULIN ASPART (NovoLOG) 100 UNIT/ML VIAL SQ SCH ×2 (06:22→12:21)
[2020-09-02] MEDS: metFORMIN 500 MG TAB PO SCH (07:01)
[2020-09-02] MEDS: PANTOPRAZOLE 40 MG TABLET PO SCH (07:01)
[2020-09-02] MEDS: IPRATROPIUM-ALBUTEROL 3 ML NEB INHALATION SCH ×2 (07:20→11:05)
--- NOTE | 2020-09-02 08:01 | P.PN ---
Subjective Progress Note Date: 09/02/20 Principal diagnosis: Coronary artery disease, heart palpitations on admission, leukocytosis on admission with unknown source (no sign of infection). Previous medical history of long-standing history of heart palpitations, hypertension, hyperlipidemia, [id number] diabetes, left lower extremity DVT with anticoagulation for approximately 1 year, rheumatic fever, questionable obstructive sleep apnea without official diagnosis, obesity POD #4 off-pump coronary artery bypass graft 3 with left internal mammary artery to the left anterior descending artery, reverse saphenous vein grafts to the obtuse marginal and posterior descending coronary arteries, endovascular vein harvest of the left greater saphenous vein, ligation of the left atrial appendage with a 45 mm AtriCure clip, epi-aortic ultrasound and intraoperative transesophageal echocardiogram Postoperative thrombocytopenia, expected Postoperative atrial fibrillation, known common occurrence after surgery The patient is currently sitting up in a recliner on the cardiac stepdown unit in no acute distress. Denies any pain or shortness of breath. Currently in sinus rhythm with occasional PVCs, hemodynamically stable. Oxygenating well on room air, able to achieve 1509-2177 mL on his incentive spirometry. He has ambulated in the hallway with assist, received first postoperative shower yesterday. No other new concerns. Objective - Vital Signs Vital signs: Vital Signs Temp 97.5 F L 09/02/20 04:00 Pulse 60 09/02/20 04:00 Resp 16 09/02/20 04:00 BP 104/58 09/02/20 04:00 Pulse Ox 95 09/02/20 04:00 Intake & Output 09/01/20 09/02/20 09/02/20 18:59 06:59 18:59 Intake Total 480 Output Total 250 275 Balance 230 -275 Weight 125.1 kg Intake: Oral 480 Output: Urine 250 275 Other: Voiding Method Urinal Toilet Urinal # Voids 1 # Bowel Movements 1 ABP, PAP, CO, CI - Last Documented Arterial Blood Pressure 120/47 Pulmonary Artery Pressure 28/14 Cardiac Output 4.2 Cardiac Index 1.7 - Exam CONSTITUTIONAL: Appears comfortable, cooperative, no acute distress RESPIRATORY: Lungs sounds diminished bilaterally. Respirations even, nonlabored. Currently on room air with oxygen saturation 95%. Able to achieve 4597-6132 mL on incentive spirometry. Strong productive cough. CARDIOVASCULAR: S1, S2 present. Regular rate and rhythm, sinus rhythm with PVCs on telemetry. Sternum stable. Palpable peripheral pulses bilaterally. Trace generalized extremity edema present. No calf pain or tenderness noted. Heart hugger in place with patient demonstrating appropriate use. Antiembolism stockings, SCDs present. GASTROINTESTINAL: Abdomen soft, nontender, nondistended. Active bowel sounds present 4 quadrants. Tolerating diet. Positive bowel movement this morning per patient GENITOURINARY: Continues to void clear, yellow urine. INTEGUMENTARY: Skin is warm and dry with evidence of good perfusion. Anterior chest incision well approximated and covered with dry intact dressing. EVH site well approximated without redness or drainage. NEUROLOGIC: Cranial nerves II through XII intact MUSKULOSKELETAL: Able to move all extremities, strength equal bilaterally PSYCHIATRIC: Alert and oriented to person place and time, appropriate affect, intact judgment and insight - Allied health notes Allied health notes reviewed: nursing - Labs CBC & Chem 7: 09/02/20 07:35 09/02/20 07:35 Labs: Abnormal Lab Results - Last 24 Hours (Table) 09/01/20 09/01/20 09/01/20 Range/Units 06:30 11:55 17:16 WBC (3.8-10.6) k/uL RBC (4.30-5.90) m/uL Hgb (13.0-17.5) gm/dL Neutrophils # (Manual) (1.3-7.7) k/uL Lymphocytes # (Manual) (1.0-4.8) k/uL Basophils # (Manual) (0-0.2) k/uL POC Glucose (mg/dL) 123 H 122 H (75-99) mg/dL Procalcitonin 0.19 H (0.02-0.09) ng/mL 09/01/20 09/01/20 09/02/20 Range/Units 19:20 20:57 06:04 WBC 25.3 H (3.8-10.6) k/uL RBC 4.18 L (4.30-5.90) m/uL Hgb 12.8 L (13.0-17.5) gm/dL Neutrophils # (Manual) 10.30 H (1.3-7.7) k/uL Lymphocytes # (Manual) 13.92 H (1.0-4.8) k/uL Basophils # (Manual) 0.25 H (0-0.2) k/uL POC Glucose (mg/dL) 105 H 107 H (75-99) mg/dL Procalcitonin (0.02-0.09) ng/mL - Imaging and Cardiology Chest x-ray: image reviewed Assessment and Plan Assessment: 1. Coronary artery disease, status post three-vessel CABG 2. Heart palpitations, atrial tachycardia, present on admission 3. Leukocytosis with lymphocytosis, present on admission, unknown source, patient remains afebrile, no evidence of pneumonia or UTI 4. Hypertension 5. Hyperlipidemia, treated, cholesterol 178, LDL 117 6. Lsg-lwbanuy-dllmvllgd diabetes, hemoglobin A1c 6.4% 7. Left lower extremity DVT with anticoagulation for approximately 1 year 8. Rheumatic fever 9. Questionable obstructive sleep apnea without official diagnosis 10. Obesity 11. Postoperative thrombocytopenia, expected 12. Postoperative paroxysmal atrial fibrillation, currently sinus with PVCs Plan: 1. Continue to maximize medical therapy with aspirin, Plavix, Zetia, pravachol, low-dose beta christiane. Will increase as tolerated 2. Continue oral amiodarone. No anticoagulation 3. Encourage incentive spirometry 10 times every hour while awake. Bronchodilators per pulmonology 4. Increase activity, ambulate as tolerated. PT/OT/cardiac rehab following. Shower daily 5. Will monitor daily labs and x-rays. Electrolyte replacement per protocol. 6. Pain control is current medication regimen. 7. GI/DVT prophylaxis 8. Insulin management per primary care service. Patient will need tight blood sugar control to promote sternal union and prevent infection 9. Hematology consulted yesterday, appreciate recommendations, will continue to follow up outpatient 10. Strict accurate intake and output. Daily weights 11. Discharge planning in progress. Anticipate discharge to home with home care today versus tomorrow 12. More recommendations to follow based on patient's progress Time with Patient: Greater than 30
[2020-09-02 08:09] LABS: HCT 39.4 % (39.0-53.0); HGB 13.1 gm/dL (13.0-17.5); MCH 31.8 pg (25.0-35.0); MCHC 33.3 g/dL (31.0-37.0); MCV 95.6 fL (80.0-100.0); Mean Platelet Volume 8.9; Platelet Count 210 k/uL (150-450); RBC 4.13 m/uL (4.30-5.90); RDW 13.6 % (11.5-15.5); WBC 24.9 k/uL (3.8-10.6)
[2020-09-02 08:10] LABS: African American GFR (CKD) >90 (>60 ml/min/1.73 sqM); Anion Gap 8 mmol/L; Blood Urea Nitrogen 34 mg/dL (9-20); Carbon Dioxide 27 mmol/L (22-30); Chloride 100 mmol/L (98-107); Glucose 118 mg/dL (74-99); Non-African American GFR(CKD) 83 (>60 ml/min/1.73 sqM); Potassium 4.9 mmol/L (3.5-5.1); Sodium 135 mmol/L (137-145)
[2020-09-02] MEDS: EZETIMIBE 10 MG TAB PO SCH (08:32)
[2020-09-02] MEDS: METOPROLOL TARTRATE 12.5 MG TAB PO SCH (08:32)
[2020-09-02] MEDS: ASPIRIN 325 MG TAB PO SCH (08:32)
[2020-09-02] MEDS: AMIODARONE 200 MG TAB PO SCH (08:32)
[2020-09-02] MEDS: CLOPIDOGREL 75 MG TAB PO SCH (08:32)
--- NOTE | 2020-09-02 08:35 | XR ---
EXAMINATION TYPE: XR chest 2V DATE OF EXAM: 09/02/2020 COMPARISON: Chest x-ray 09/01/2020 HISTORY: Status post cardiac surgery, abnormal chest x-ray TECHNIQUE: Frontal and lateral views of the chest are obtained. FINDINGS: Patient is post median sternotomy, left atrial appendage clip placement. Blunting the righ t costophrenic angle, obscured right hemidiaphragm is again seen. There is no evident pneumothorax. T here are overlying artifacts. Patchy basilar density present bilaterally. Cardiac mediastinal silhoue tte is stable, aorta is dense. Prominent lung volume may be indicative of COPD. IMPRESSION: Probable basilar atelectasis and associated effusion.
[2020-09-02 08:36] VITALS: BP 120/66; RESP 18; TEMP 98.5
[2020-09-02 09:35] LABS: Lymphocytes # (M) 6.72 k/uL (1.0-4.8); Monocytes # (M) 2.24 k/uL (0-1.0); Neutrophils # (M) 15.94 k/uL (1.3-7.7); Neutrophils % (M) 64 %; Nucleated Red Blood Cells 0 /100 WBC (0-0); Total Cells Counted 100
[2020-09-02 11:08] VITALS: PULSE 80
--- NOTE | 2020-09-02 11:10 | P.DS ---
Providers Date of admission: 08/25/20 16:55 Expected date of discharge: 09/02/20 Attending physician: Mando Mullen Consults: 08/25/20 16:55 Consult Physician Stat Consulting Provider: Tristan Moore Consult Reason/Comments: arrhythmia Do you want consulting provider notified?: Already Contacted 08/28/20 12:13 Consult Physician Routine Consulting Provider: Faraz Lutz Consult Reason/Comments: cabg Do you want consulting provider notified?: Yes 08/28/20 14:51 Consult Physician Routine Consulting Provider: Weston Campbell Consult Reason/Comments: preop cabg Do you want consulting provider notified?: Already Contacted Consult to Anesthesia Routine Consulting Provider: Anesthesia,Services Consult Reason/Comments: Cardiac Surgery Pre-Op 09/01/20 10:01 Consult Physician Routine Consulting Provider: Shukri Alexander Consult Reason/Comments: leukocytosis with lymphocytosis Do you want consulting provider notified?: Yes 09/01/20 14:59 Consult Physician Stat Consulting Provider: Mal Baker Consult Reason/Comments: medical management Do you want consulting provider notified?: Yes Primary care physician: Hiren Travis Hospital Course: FINAL DIAGNOSIS: 1. Coronary artery disease 2. Heart palpitations, atrial tachycardia 3. Leukocytosis with lymphocytosis 4. 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 Hypertension 6. Hyperlipidemia, treated, cholesterol 178, LDL 117 7. Abe-ymflwew-edsltamrk diabetes, hemoglobin A1c 6.4% 8. History of left lower extremity DVT with anticoagulation for approximately 1 year 9. History of rheumatic fever 10. Obesity 11. Postoperative thrombocytopenia, expected 12. Postoperative paroxysmal atrial fibrillation PRINCIPAL PROCEDURE: 1. Off-pump coronary artery bypass grafting 3 with left internal mammary artery to the left anterior descending artery, reverse saphenous vein grafts to the obtuse marginal and posterior descending coronary arteries 2. Endovascular vein harvest of the left greater saphenous vein 3. Ligation of the left atrial appendage with a 45 mm AtriCure clip 4. Epi-aortic ultrasound and intraoperative transesophageal echocardiogram HISTORY OF PRESENT ILLNESS: This is a 80-year-old gentleman who follows on an outpatient basis with Dr. Hiren Travis for primary care. Apparently he has been experiencing heart palpitations for many many years, he has worn a Holter monitor many times and has had several EKGs without any significant findings. Recently he began to experience shortness of breath and lower extremity edema, he was seen by his primary care physician who did an EKG demonstrating arrhythmia and the patient was recommended to report to the emergency room. Initially he reported to [facility] but there was no rigging man in the hospital so he was transferred to [facility]. By the time he got to [facility] he reported no shortness of breath and decreased lower extremity edema. EKG demonstrated atrial tachycardia with occasional PVCs. Troponins were negative. Chest x-ray demonstrated no acute process. The patient was admitted for evaluation and treatment with consultation placed to Dr. Moore. Workup included a transthoracic echocardiogram demonstrating mildly impaired left ventricular systolic function with EF 45-50%, dilated left atrium, mild mitral regurgitation with mild MAC, and mild tricuspid regurgitation. He was recommended to undergo heart catheterization which demonstrated RCA stenosis 100%, circumflex stenosis 50%, and proximal LAD stenosis 95%. Consultation was placed to Dr. Mullen from cardiothoracic surgery. He was recommended to undergo coronary artery bypass surgery. The usual perioperative course was discussed in detail with the patient and his family, all risks and benefits were explained, all questions were answered, and consent was obtained to proceed with surgery. The patient was kept inpatient due to the nature of his disease process and the distance between the hospital and his home. HOSPITAL COURSE: The patient was brought to the preoperative area 08/29/20, prepared in the usual fashion, and subsequently taken to the operating room where Dr. Mullen performed three-vessel off-pump CABG. Upon completion of surgery the patient was transferred to the cardiovascular intensive care unit where he was recovered and monitored hemodynamically. He was extubated, all lines, tubes, and drips were discontinued when appropriate, and he was transferred to [facility] cardiac stepdown unit for further monitoring and rehabilitation. His oxygen was titrated down, he continued to work with p hysical and occupational therapy, he was tolerating oral diet, his pain was controlled, and he was ready to be discharged to home with [facility] on postoperative day #4. He received written and verbal instruction regarding his medications, activity restrictions, signs and symptoms requiring physician notification, and follow-up appointments. COMPLICATIONS: The patient experienced postoperative atrial fibrillation which was treated with amiodarone and low-dose Lopressor. Patient Condition at Discharge: Serious Plan - Discharge Summary Discharge Rx Participant: No New Discharge Prescriptions: New Amiodarone [Cordarone] 200 mg PO TID #90 tab metFORMIN HCL [Glucophage] 1,000 mg PO BID-W/MEALS #60 tab Clopidogrel [Plavix] 75 mg PO DAILY #30 tab Acetaminophen Tab [Tylenol] 650 mg PO Q4HR PRN tab PRN Reason: Fever And/ Or Pain Aspirin 325 mg PO DAILY #30 tab Metoprolol Tartrate [Lopressor] 12.5 mg PO BID #60 tab Pravastatin Sodium [Pravachol] 20 mg PO HS #30 tab Pantoprazole [Protonix] 40 mg PO AC-BRKFST #30 tablet. Senamerica-Docusate Sodium [Senokot-S] 2 each PO HS PRN tab PRN Reason: Constipation Continue allopurinoL [Zyloprim] 300 mg PO DAILY Ezetimibe [Zetia] 10 mg PO DAILY Magnesium Oxide [Mag-Ox] 400 mg PO DAILY Enalapril Maleate [Vasotec] 10 mg PO HS Discontinued metFORMIN HCL ER [Glucophage Xr] 500 mg PO BID hydroCHLOROthiazide [Hydrodiuril] 25 mg PO DAILY Aspirin EC [Ecotrin Low Dose] 81 mg PO HS Discharge Medication List Enalapril Maleate [Vasotec] 10 mg PO HS 08/25/20 [History] Ezetimibe [Zetia] 10 mg PO DAILY 08/25/20 [History] Magnesium Oxide [Mag-Ox] 400 mg PO DAILY 08/25/20 [History] allopurinoL [Zyloprim] 300 mg PO DAILY 08/25/20 [History] Acetaminophen Tab [Tylenol] 650 mg PO Q4HR PRN tab 09/02/20 [Rx] Amiodarone [Cordarone] 200 mg PO TID #90 tab 09/02/20 [Rx] Aspirin 325 mg PO DAILY #30 tab 09/02/20 [Rx] Clopidogrel [Plavix] 75 mg PO DAILY #30 tab 09/02/20 [Rx] Metoprolol Tartrate [Lopressor] 12.5 mg PO BID #60 tab 09/02/20 [Rx] Pantoprazole [Protonix] 40 mg PO AC-BRKFST #30 tablet. 09/02/20 [Rx] Pravastatin Sodium [Pravachol] 20 mg PO HS #30 tab 09/02/20 [Rx] Sennosides-Docusate Sodium [Senokot-S] 2 each PO HS PRN tab 09/02/20 [Rx] metFORMIN HCL [Glucophage] 1,000 mg PO BID-W/MEALS #60 tab 09/02/20 [Rx] Follow up Appointment(s)/Referral(s): Tristan Moore MD [STAFF PHYSICIAN] - 09/24/20 3:15 pm (AT THE [address] INSIDE [facility]) Shukri Alexander MD [STAFF PHYSICIAN] - 3 Weeks Rehab [facility] [NON-STAFF] - 4 Weeks (You will be called in 4-6 weeks for evaluation for cardiac rehab) Mando Mullen MD [STAFF PHYSICIAN] - 09/25/20 9:30 am Owen Wellington NPC [Nurse Practitioner] - 09/08/20 2:30 pm (To be seen in the physician's office behind the hospital in [facility], [address]) Weston Campbell DO [Doctor of Osteopathic Medicine] - 09/29/20 1:00 pm [facility], [NON-STAFF] - Hiren Travis MD [Primary Care Provider] - 09/12/20 9:30 am Ambulatory/Diagnostic Orders: Complete Blood Count w/diff [LAB.AMB] Time Frame: 3 Days, Location: None Selected Comprehensive Metabolic Panel [LAB.AMB] Time Frame: 3 Days, Location: None Selected Activity/Diet/Wound Care/Special Instructions: DISCHARGE INSTRUCTIONS: 1. No driving for 4 weeks, or until physician gives their ok. 2. The patient should sleep in their own bed, no medical bed needed. 3. Stairs are not an issue. If the bedroom is upstairs, it is advised that the patient go up at night and down in the morning for the first week. Go slowly, using handrail and take 1 step at a time. 4. ERIN hose are to be worn for 30 days or until physician discontinues. 5. Heart hugger is to be worn 100% of the time until physician discontinues.(except when showering) 6. No lifting, pushing, or pulling more than 10 pounds for 12 weeks. The physician will advise of any restriction changes. 7. The patient is expected to continue the prescribed walking program. 8. Continue pain control per as needed orders. 9. Continue with incentive spirometry and splinting/heart hugger until ot herwise directed by the physician. 10. Must shower daily using liquid antibacterial soap and a separate white washcloth for each individual incision. 11. Routine sternal incision care. No powders, lotions, ointments on incisions. No dressings are necessary on incisions unless they are draining. Dermabond tape is to remain on sternal incision until surgeon follow-up. 12. Please call surgeon/TOBACCO SCRAP SIFTER for temp greater than 101 F or purulent drainage from incisions. 13. All prescriptions given by surgeon for 30 days. Refills need to be filled through rigging man/primary care physician. 14. A Red armband has been placed on the patient. It should be worn for 30 days post surgery and will be removed by the cardiac surgeons. If an ER visit is necessary, please make sure the number on the Red armband is called. 15. You have been referred to and are expected to begin Cardiac Rehab in approximately 4-6 weeks. HOME HEALTH SERVICES TO PROVIDE: RN SKILLED HOME CARE SERVICES FOR POST-OP SURGICAL PATIENTS WITH THE FOLLOWING: Coronary Artery Bypass Surgery (CABG), Mitral Valve Replacement/Repair ( MVR), Aortic Valve Replacement/Repair (AVR) RN TO CONTINUE EDUCATION FROM ``ROAD TO A HEALTH HEART PATIENT EDUCATION MANUAL (GIVEN TO PATIENT IN THE HOSPITAL) MEDICATION RECONCILIATION WITH EDUCATION NEEDED ON FIRST HOME VISIT EMPHASIZE IMPORTANCE OF WEARING BREAST SUPPORT/HEART HUGGER ENCOURAGE USE OF INCENTIVE SPIROMETER 10 X EVERY HOUR WHILE AWAKE ENCOURAGE UTILIZATION OF LOWER EXTREMITY COMPRESSION STOCKINGS/ERIN HOSE and ELEVATE LEGS ABOVE LEVEL OF HEART WHILE AT REST. ENCOURAGE AMBULATION 3-5x/day INCREASING TOLERATES, WHILE AVOIDING EXTREMES IN TEMPERATURE FREQUENCY: RN TO OPEN THE PATIENT WITHIN 24 HOURS OF DISCHARGE FROM THE HOSPITAL WITH [place] [facility] [place] VISIT 2-3 X A WEEK FOR 4 WEEKS ESTABLISHED BY PATIENT NEEDS. LABORATORY: CBC, CMP TO BE DRAWN ON THE THIRD DAY HOME, (RAN STAT) FAX RESULTS TO [phone]. TELEHEALTH PARAMETERS: WEIGHT: NOTIFY MD OF WEIGHT GAIN OF 2 LBS IN 24 HOURS OR 5 LBS IN ONE WEEK HR: NOTIFY MD OF HR <55 BPM OR HR>100 BPM BP: NOTIFY MD IF BP <90/55 OR BP>140/100 O2 SAT: NOTIFY MD IF PO2<93% ON ROOM AIR SEND TELEHEALTH REPORT TO SYSTEM AUDITOR AND CARDIOVASCULAR SURGEON THE FIRST WEEK OF CARE AND THEN BI-WEEKLY. PLEASE ADDITIONALLY COMMUNICATE ANY ABNORMALS AND NEW FINDINGS TO THE SURGEONS OFFICE. For any questions or concerns please call buildings painter Kimberly @ or Italo @ Discharge Disposition: HOME WITH HOME HEALTH SERVICES
[2020-09-02 11:39] LABS: Glucose,Whole Blood 120 mg/dL (75-99)
--- NOTE | 2020-09-02 13:14 | P.PN ---
Subjective Progress Note Date: 09/02/20 HISTORY OF PRESENT ILLNESS: This is a 80-year-old male with a past medical history significant for irregular heart rhythm, hyperlipidemia, and hypertension. Patient used to follow in the office with Dr. Mallory but has not been seen in the office since 2014. We have been asked to see the patient in consultation for arrhythmia. Patient examined at the bedside. Patient states he has had an irregular heart rhythm all of his life and has been pretty much asymptomatic with it. He states he has had multiple EKGs in the past and a Holter monitor which have never shown evidence of atrial fibrillation. He states about a month ago he developed some shortness of breath with exertion which was new for him. He also reports this weekend he felt palpitations worse than normal. He states he went to see his primary care physician on Tuesday who did an EKG and was concerned she was having ventricular tachycardia and possibly atrial fibrillation. [facility] and was transferred to [facility] for further evaluation. Patient currently denies chest pain or pressure. He denies shortness of breath. Currently denies palpitations. Patient states he used to be on a beta christiane secondary to his irregular heart rhythm. He states this was weaned off a couple years ago. He does report when he was on a beta christiane his heart rate was low when he was sleeping. Patient states he has never been worked up for sleep apnea but he believes he probably has it. EKG reveals sinus mechanism with PVCs and bursts of multifocal atrial tachycardia Chest xray negative for acute process Laboratory data: WBC 20.6. Hemoglobin 16.8. Platelet count 123. Sodium 138. Potassium 5.2. BUN 25. Creatinine 1.01. Troponin 0.027. BNP 629. Current home cardiac medications include aspirin 81 mg daily, hydrochlorothiazide 25 mg daily, Zetia 10 mg daily, and enalapril 10 mg daily Most recent echocardiogram obtained in 2013 revealed ejection fraction 60% with mild tricuspid regurgitation and mild mitral regurgitation 08/27/2020 Patient examined this morning at the bedside. He denies chest pain or pressure. Denies shortness of breath. Telemetry reveals sinus mechanism with PVCs and bursts of multifocal atrial tachycardia. A cardiogram completed revealed ejection fraction 45-50% mild mitral regurgitation and mild tricuspid regurgitation. TSH within normal limits. 09/02/2020 Patient examined this morning. Patient is s/p CABG x 3. He is sitting up in the chair. He denies chest pain or pressure. He denies shortness of breath. Patient states he is using his incentive spirometer and pulling 1500 mL. He is hoping to be discharged home today. PHYSICAL EXAM: VITAL SIGNS: Reviewed. GENERAL: Well-developed in no acute distress. HEENT: Head is normocephalic. Pupils are equal, round. Sclerae anicteric. Mucous membranes of the mouth are moist. Neck supple. No JVD or thyromegaly LUNGS: Respirations even and unlabored. Lungs essentially clear to auscultation bilaterally. HEART: Irregular rate and rhythm. S1 and S2 heard. ABDOMEN: Soft. Nondistended. Nontender. EXTREMITIES: Normal range of motion. No clubbing or cyanosis. Peripheral pulses intact. Trace bilateral lower extremity edema NEUROLOGIC: Awake and alert. Oriented x 3. ASSESSMENT: Coronary artery disease, status post CABG 3 Cardiac arrhythmia, sinus mechanism with PVCs and multifocal atrial tachycardia Postoperative paroxysmal atrial fibrillation Leukocytosis Hypertension Hyperlipidemia Diabetes mellitus PLAN: Continue current cardiac medications Patient may be discharged home today from a cardiac standpoint Patient to follow up outpatient with Dr. Moore Nurse practitioner note has been reviewed by physician. Signing provider agrees with the documented findings, assessment, and plan of care. Objective - Vital Signs Vital signs: Vital Signs Temp 98.5 F 09/02/20 08:30 Pulse 80 09/02/20 11:16 Resp 18 09/02/20 08:30 BP 120/66 09/02/20 08:30 Pulse Ox 95 09/02/20 04:00 Intake & Output 09/01/20 09/02/20 09/02/20 18:59 06:59 18:59 Intake Total 480 120 Output Total 250 275 Balance 230 -275 120 Weight 125.1 kg Intake: Oral 480 120 Output: Urine 250 275 Other: Voiding Method Urinal Toilet Toilet Urinal Urinal # Voids 1 # Bowel Movements 1 ABP, PAP, CO, CI - Last Documented Arterial Blood Pressure 120/47 Pulmonary Artery Pressure 28/14 Cardiac Output 4.2 Cardiac Index 1.7 - Labs CBC & Chem 7: 09/02/20 07:35 09/02/20 07:35 Labs: Abnormal Lab Results - Last 24 Hours (Table) 09/01/20 09/01/20 09/01/20 Range/Units 06:30 17:16 19:20 WBC 25.3 H (3.8-10.6) k/uL RBC 4.18 L (4.30-5.90) m/uL Hgb 12.8 L (13.0-17.5) gm/dL Neutrophils # (Manual) 10.30 H (1.3-7.7) k/uL Lymphocytes # (Manual) 13.92 H (1.0-4.8) k/uL Monocytes # (Manual) (0-1.0) k/uL Basophils # (Manual) 0.25 H (0-0.2) k/uL Sodium (137-145) mmol/L BUN (9-20) mg/dL Glucose (74-99) mg/dL POC Glucose (mg/dL) 122 H (75-99) mg/dL Procalcitonin 0.19 H (0.02-0.09) ng/mL 09/01/20 09/02/20 09/02/20 Range/Units 20:57 06:04 07:35 WBC 24.9 H (3.8-10.6) k/uL RBC 4.13 L (4.30-5.90) m/uL Hgb (13.0-17.5) gm/dL Neutrophils # (Manual) 15.94 H (1.3-7.7) k/uL Lymphocytes # (Manual) 6.72 H (1.0-4.8) k/uL Monocytes # (Manual) 2.24 H (0-1.0) k/uL Basophils # (Manual) (0-0.2) k/uL Sodium (137-145) mmol/L BUN (9-20) mg/dL Glucose (74-99) mg/dL POC Glucose (mg/dL) 105 H 107 H (75-99) mg/dL Procalcitonin (0.02-0.09) ng/mL 09/02/20 09/02/20 Range/Units 07:35 11:36 WBC (3.8-10.6) k/uL RBC (4.30-5.90) m/uL Hgb (13.0-17.5) gm/dL Neutrophils # (Manual) (1.3-7.7) k/uL Lymphocytes # (Manual) (1.0-4.8) k/uL Monocytes # (Manual) (0-1.0) k/uL Basophils # (Manual) (0-0.2) k/uL Sodium 135 L (137-145) mmol/L BUN 34 H (9-20) mg/dL Glucose 118 H (74-99) mg/dL POC Glucose (mg/dL) 120 H (75-99) mg/dL Procalcitonin (0.02-0.09) ng/mL
--- NOTE | 2020-09-02 13:49 | P.PN ---
Subjective Progress Note Date: 09/02/20 Principal diagnosis: Coronary Artery disease This is a 80-year-old male patient who follows with Dr. Travis is his primary care provider. He has a history of diabetes mellitus, hyperlipidemia, hypertension, irregular heart rate. He had been having issues with palpitations and chest discomfort and was transferred here from an outside facility for the same on 08/25/2020. EKG revealed evidence of multifocal atrial tachycardia with occasional PVCs. Echocardiogram revealed mildly impaired left ventricular systolic function with ejection fraction 45-50%. 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 He was recommended coronary artery bypass grafting. This was performed today by Dr. Mullen. He received an off-pump CABG 3 with a BRIDGES to the LAD, saphenous vein grafts to the obtuse marginal and posterior descending coronary artery. He is seen in consultation in the ICU. He is currently on pressure support of 5 and CPAP of 5 at 50% FiO2. Gases reveal a pO2 of 70, pCO2 45, pH 7.35. Weaning parameters revealed a tidal volume of 630, minute ventilation 8.6, FVC 1.6, NIF -30 RSBI 27 with a positive cuff leak. Chest x-ray reveals postoperative changes with less than 5% right apical pneumothorax. Bibasilar atelectasis, small effusion with mild venous congestion. Mediastinal and left chest tubes in place. Nasogastric tube in place. White count 22.8. Hemoglobin 14.0. Platelets 116. Sodium 137. Potas sium 4.3. Creatinine 0.81. Albumin 3.2. Glucose 123. He is on a nitroglycerin drip at 5 mcg/m. Lactated Ringer's at 50 MLS per hour. Precedex at 0.2 mg/kg/m. PA pressures 39/16. CVP 13. Cardiac output 6.0. Cardiac index 2.5. The patient is seen today 08/30/2020 in follow-up in the intensive care unit. He is currently awake and alert in no acute distress. Currently on 4 L nasal cannula. Lactated Ringer's at 50 MLS per hour. Insulin drip at 1 unit per hour. Chest x-ray reveals atelectasis of the lung bases. Mediastinal and left pleural chest tubes remain in place. No air leaks noted. Right IJ catheter in place. Right radial arterial line in place. White count 20.5. Hemoglobin 14.0. Platelets 107. Sodium 133. Potassium 4.2. Creatinine 0.97. He remains on bronchodilators, appropriate for DVT prophylaxis. Working well with the incentive spirometer obtaining approximately 1500 ML's.. Remains in sinus rhythm. Cardiac output 5.6. Cardiac index 2.3. PA pressure 27/12. CVP 2. The patient is seen today 08/31/2020 in follow-up in the intensive care unit. He is currently sitting up in a chair at the bedside. Awake and alert in no acute distress. He is maintaining good O2 saturations in the 90s on 2 L/m per nasal cannula. Chest x-ray reveals patchy left lower lobe opacity most likely atelectasis versus pneumonia. Stable mild pulmonary vascular congestion. [place]- [place] catheter has been removed. Mediastinal and left chest tubes remain in place. No air leaks noted. He did develop an episode of atrial fibrillation with rapid ventricular response and was initiated on amiodarone. Currently at 0.5 mg/m. Lactated Ringer's at 20 ML's per hour. White count 26.3. Hemoglobin 12.9. Platelets 103. Sodium 131. Potassium 4.0. Creatinine 1.05. He remains on bronchodilators. Heparin for DVT prophylaxis. Working well with the incentive spirometer. Pulling approximately 1500 ML's. The patient is seen today 09/01/2020 in follow-up on selective care unit. He is currently sitting up in a chair at the bedside. Awake and alert in no acute distress. Breathing a bit easier today compared to yesterday. Maintaining good O2 saturations in the 90s on room air. He's been afebrile. Hemodynamically stable. Chest x-ray reveals some basilar atelectasis. Small effusions. He continues to work well with the incentive spirometer. White count 29.0. Hemoglobin 13.2. Sodium 133. Potassium 4.9. Creatinine 0.91. Glucose 108. He remains on DuoNeb inhalations, heparin for DVT prophylaxis. Oral amiodarone. On 09/02/2020 the patient seen in follow-up on selective care unit. He is awake and oriented, in no acute distress, denies any shortness of breath, denies any chest discomfort, no cough, no wheezing, today's chest x-ray has been reviewed showing as atelectasis and associated right-sided pleural fusion. Patient is working as incentive spirometer, his effort today is 1500 today. Lung sounds are positive for diminished breath sounds at the bases. Addition patient has generalized edema, his upper and lower extremities. Today's labs have been reviewed, his white blood cell count is 24.9, hemoglobin is 13.1, serum sodium is 135, and saphenous electrolytes were within normal limits, B1 is 34 creatinine 0.86. He remains in atrial fibrillation with a controlled rate, he is currently on oral amiodarone 200 mg 3 times a day, and he is on metoprolol 12.5 mg twice a day. On room air, pulse ox is 95%. Patient's incisions clean dry and intact, all chest tubes have been discontinued, Simmons catheter has been discontinued, he is tolerating oral intake, his been tolerating ambulation. He has had no acute events overnight, discharge is currently pending for discharge home. Objective - Vital Signs Vital signs: Vital Signs Temp 98.5 F 09/02/20 08:30 Pulse 80 09/02/20 11:16 Resp 18 09/02/20 08:30 BP 120/66 09/02/20 08:30 Pulse Ox 95 09/02/20 04:00 Intake & Output 09/01/20 09/02/20 09/02/20 18:59 06:59 18:59 Intake Total 480 120 Output Total 250 275 Balance 230 -275 120 Weight 125.1 kg Intake: Oral 480 120 Output: Urine 250 275 Other: Voiding Method Urinal Toilet Toilet Urinal Urinal # Voids 1 # Bowel Movements 1 ABP, PAP, CO, CI - Last Documented Arterial Blood Pressure 120/47 Pulmonary Artery Pressure 28/14 Cardiac Output 4.2 Cardiac Index 1.7 - Exam GENERAL EXAM: Alert, thin, 80-year-old white male, on room air, the pulse ox of 95% comfortable in no apparent distress. HEAD: Normocephalic/atraumatic. EYES: Normal reaction of pupils, equal size. Conjunctiva pink, sclera white. NOSE: Clear with pink turbinates. THROAT: No erythema or exudates. NECK: No masses, no JVD, no thyroid enlargement, no adenopathy. CHEST: No chest wall deformity. Symmetrical expansion. Midsternal incision is clean dry and intact, chest tube sites are clean dry and intact, covered with surgical dressings LUNGS: Equal air entry with no crackles, wheeze, rhonchi or dullness. CVS: Irregular rate and rhythm, normal S1 and S2, no gallops, no murmurs, no rubs ABDOMEN: Soft, nontender. No hepatosplenomegaly, normal bowel sounds, no guarding or rigidity. EXTREMITIES: No clubbing, edema, 1+ involving upper and lower extremities no cyanosis, 2+ pulses and upper and lower extremities. MUSCULOSKELETAL: Muscle strength and tone normal. SPINE: No scoliosis or deformity SKIN: No rashes CENTRAL NERVOUS SYSTEM: Alert and oriented -3. No focal deficits, tone is normal in all 4 extremities. PSYCHIATRIC: Alert and oriented -3. Appropriate affect. Intact judgment and insight. - Labs CBC & Chem 7: 09/02/20 07:35 09/02/20 07:35 Labs: Abnormal Lab Results - Last 24 Hours (Table) 09/01/20 09/01/20 09/01/20 Range/Units 06:30 17:16 19:20 WBC 25.3 H (3.8-10.6) k/uL RBC 4.18 L (4.30-5.90) m/uL Hgb 12.8 L (13.0-17.5) gm/dL Neutrophils # (Manual) 10.30 H (1.3-7.7) k/uL Lymphocytes # (Manual) 13.92 H (1.0-4.8) k/uL Monocytes # (Manual) (0-1.0) k/uL Basophils # (Manual) 0.25 H (0-0.2) k/uL Sodium (137-145) mmol/L BUN (9-20) mg/dL Glucose (74-99) mg/dL POC Glucose (mg/dL) 122 H (75-99) mg/dL Procalcitonin 0.19 H (0.02-0.09) ng/mL 09/01/20 09/02/20 09/02/20 Range/Units 20:57 06:04 07:35 WBC 24.9 H (3.8-10.6) k/uL RBC 4.13 L (4.30-5.90) m/uL Hgb (13.0-17.5) gm/dL Neutrophils # (Manual) 15.94 H (1.3-7.7) k/uL Lymphocytes # (Manual) 6.72 H (1.0-4.8) k/uL Monocytes # (Manual) 2.24 H (0-1.0) k/uL Basophils # (Manual) (0-0.2) k/uL Sodium (137-145) mmol/L BUN (9-20) mg/dL Glucose (74-99) mg/dL POC Glucose (mg/dL) 105 H 107 H (75-99) mg/dL Procalcitonin (0.02-0.09) ng/mL 09/02/20 09/02/20 Range/Units 07:35 11:36 WBC (3.8-10.6) k/uL RBC (4.30-5.90) m/uL Hgb (13.0-17.5) gm/dL Neutrophils # (Manual) (1.3-7.7) k/uL Lymphocytes # (Manual) (1.0-4.8) k/uL Monocytes # (Manual) (0-1.0) k/uL Basophils # (Manual) (0-0.2) k/uL Sodium 135 L (137-145) mmol/L BUN 34 H (9-20) mg/dL Glucose 118 H (74-99) mg/dL POC Glucose (mg/dL) 120 H (75-99) mg/dL Procalcitonin (0.02-0.09) ng/mL Assessment and Plan Plan: Assessment: 1 Coronary artery disease status post coronary artery bypass grafting utilizing a BRIDGES to the LAD, saphenous vein grafts to the obtuse marginal and posterior descending coronary arteries. Postoperative day #4. 2 Mechanical ventilator support secondary to above, expected outcome of surgery, recovered and on room air 3 Diabetes mellitus 4 Hypertension 5 Hyperlipidemia 6 History of cardiac arrhythmias 7 Atrial fibrillation with rapid ventricular response, initiated and amiodarone, currently in sinus rhythm with PVCs 8 Leukocytosis, suspect reactive Plan: Patient has been stable overnight His had no acute events Vital signs have been stable, he is on room air Tolerating ambulation Remains in sinus rhythm with frequent PACs, rate control medications and anticoagulation per cardiology and CT surgery Chest x-ray has been reviewed revealing bibasilar atelectasis, and small right pleural effusion Encourage deep breathing and coughing Discharge home is pending today Case with the CT surgery and recommend patient be sent home on daily dose of Lasix 40 mg daily Follow-up with Dr. Campbell in the office in 7-10 days I performed a history & physical examination of the patient and discussed their management with my nurse practitioner, Ana Cedeno. I reviewed the nurse practitioner's note and agree with the documented findings and plan of care. Lung sounds are positive for diffuse wheezes throughout the lung quijano. The findings and the impression was discussed with the patient. I attest to the documentation by the nurse practitioner. Time with Patient: Less than 30
--- NOTE | 2020-09-02 14:46 | P.PN ---
Progress Note - Text Progress Note Date: 09/02/20 Presenting complaint: Arrhythmia Hospital course: 74-year-old male, who follows with Dr. Hiren Travis was admitted secondary to arrhythmia which appears to be either multifocal atrial tachycardia PVCs . Cardiac catheterization August 28: Calcified coronary arteries, chronically occluded RCA, critical stenosis of proximal LAD.-By Dr. Dietz . August 29: Underwent coronary bypass by Dr. Mullen. Today: Sitting up in a chair. Has been ambulatory. Breathing stable. Oral intake fair. Telemetry: Sinus rhythm with PVCs. No Chest pain Review of systems: Was done for constitutional, cardiovascular, GI, pulmonary. relevant finding as above Active Medications Acetaminophen (Acetaminophen Tab 325 Mg Tab) 650 mg PO Q4HR PRN PRN Reason: Fever and/ or Pain Last Admin: 09/01/20 12:41 Dose: 650 mg Documented by: Albuterol/Ipratropium (Ipratropium-Albuterol 3 Ml Neb) 3 ml INHALATION RT-Q2H PRN PRN Reason: Shortness Of Breath Or Wheezing Albuterol/Ipratropium (Ipratropium-Albuterol 3 Ml Neb) 3 ml INHALATION RT-QID [facility] Last Admin: 09/02/20 11:05 Dose: 3 ml Documented by: Allopurinol (Allopurinol 300 Mg Tab) 300 mg PO HS [facility] Last Admin: 09/01/20 22:06 Dose: 300 mg Documented by: Amiodarone HCl (Amiodarone 200 Mg Tab) 200 mg PO TID [facility] Last Admin: 09/02/20 08:32 Dose: 200 mg Documented by: Aspirin (Aspirin 325 Mg Tab) 325 mg PO DAILY [facility] Last Admin: 09/02/20 08:32 Dose: 325 mg Documented by: Benzocaine/Menthol (Benzocaine/Menthol Lozeng 1 Each Lozenge) 1 each MUCOUS MEM Q2H PRN PRN Reason: Sore Throat Bisacodyl (Bisacodyl 10 Mg Supp) 10 mg RECTAL DAILY PRN PRN Reason: Constipation Clopidogrel Bisulfate (Clopidogrel 75 Mg Tab) 75 mg PO DAILY [facility] Last Admin: 09/02/20 08:32 Dose: 75 mg Documented by: Ezetimibe (Ezetimibe 10 Mg Tab) 10 mg PO DAILY [facility] Last Admin: 09/02/20 08:32 Dose: 10 mg Documented by: Heparin Sodium (Porcine) (Heparin Sodium,Porcine/Pf 5,000 Unit/0.5 Ml Syringe) 5,000 unit SQ Q8HR [facility] Last Admin: 09/02/20 08:31 Dose: 5,000 unit Documented by: Amiodarone HCl 150 mg/ (Dextrose/Water) 103 mls @ 618 mls/hr IV .Q10M PRN; Protocol PRN Reason: A.FIB/FLUTTER Last Admin: 08/30/20 22:48 Dose: 618 mls/hr Documented by: Insulin Aspart (Insulin Aspart (Novolog) 100 Unit/Ml Vial) 0 unit SQ ACHS [facility]; Protocol Last Admin: 09/02/20 12:21 Dose: Not Given Documented by: Lisinopril (Lisinopril 2.5 Mg Tab) 2.5 mg PO [facility] Last Admin: 09/01/20 22:06 Dose: 2.5 mg Documented by: Magnesium Hydroxide (Magnesium Hydroxide 2,400 Mg/10 Ml Cup) 2,400 mg PO BID PRN PRN Reason: Constipation Metformin HCl (Metformin 500 Mg Tab) 1,000 mg PO BID-W/MEALS [facility] Last Admin: 09/02/20 07:01 Dose: 1,000 mg Documented by: Metoprolol Tartrate (Metoprolol Tartrate 12.5 Mg Tab) 12.5 mg PO BID [facility] Last Admin: 09/02/20 08:32 Dose: 12.5 mg Documented by: Miscellaneous Information (Potassium Replacement Protocol 1 Each Misc) 1 each MISCELLANE DAILY PRN; Protocol PRN Reason: Per Protocol Miscellaneous Information (Magnesium Replacement Protocol 1 Each Misc) 1 each MISCELLANE DAILY PRN; Protocol PRN Reason: Per Protocol Miscellaneous Information (Phosphorus Replacement Protoco 1 Each Misc) 1 each MISCELLANE DAILY PRN; Protocol PRN Reason: Per Protocol Ondansetron HCl (Ondansetron 4 Mg/2 Ml Vial) 4 mg IVP Q6HR PRN PRN Reason: Nausea And Vomiting Pantoprazole Sodium (Pantoprazole 40 Mg Tablet) 40 mg PO AC-BRKFST [facility] Last Admin: 09/02/20 07:01 Dose: 40 mg Documented by: Pravastatin Sodium (Pravastatin Sodium 20 Mg Tab) 20 mg PO HS [facility] Last Admin: 09/01/20 22:06 Dose: 20 mg Documented by: Senna/Docusate Sodium (Sennosides-Docusate Sodium 1 Each Tab) 2 each PO HS [facility] Last Admin: 09/01/20 22:06 Dose: 2 each Documented by: Sodium Chloride (Sodium Chloride 0.9% Flush 10 Ml Syringe) 10 ml IV BID [facility] Last Admin: 09/02/20 08:32 Dose: 10 ml Documented by: On examination: VITAL SIGNS: 98.568, 18, 1 20 x 66, 95% room air GENERAL APPEARANCE: Sitting up in a chair, awake, comfortable HEENT: Normal external appearance of nose and ear. Oral cavity normal EYES: Pupils equal. Conjunctiva normal. NECK: JVD not raised. Mass not palpable. RESPIRATORY: Respiratory effort normal. Lungs clear to auscultation. CARDIOVASCULAR: First and second sounds normal. No edema. ABDOMEN: Soft. Liver and spleen not palpable. No tenderness. No mass palpable. PSYCHIATRY: Alert and oriented x3. Mood and affect normal. Investigations: September 02: Obesity 24.9 potassium 4.9 creatinine 0.86 WBC 29 hemoglobin 13.2 potassium 4.9 crit and 0.91 Carotid Doppler: No significant stenosis. Moderate atherosclerotic plaque at bilateral common Artery bifurcations 2-D echocardiogram: EF 45-50%. Assessment and plan: -Multifocal atrial tachycardia On Lopressor -Triple-vessel coronary artery disease, followed by coronary bypass Aspirin, Plavix, Lopressor, Pravachol -Obesity BMI 35.5 Dietitian. Weight loss measures. Follow-up with PCP -Diabetes mellitus type 2 Glucophage. Follow Accu-Cheks. Increase dose of Glucophage 1000 mg twice daily. DC NPH. -Hyperlipidemia Pravachol -Essential hypertension Lopressor, and Vasotec 2.5 mg daily at bedtime Care was discussed with the patient. Continue current medications.
--- NOTE | 2020-09-02 15:49 | P.PN ---
Subjective Progress Note Date: 09/02/20 Principal diagnosis: S/P CABG, leukocytosis Pt doing well in f/u, he is getting around, no fevers. Objective - Vital Signs Vital signs: Vital Signs Temp 98.5 F 09/02/20 08:30 Pulse 80 09/02/20 11:16 Resp 18 09/02/20 08:30 BP 120/66 09/02/20 08:30 Pulse Ox 95 09/02/20 04:00 Intake & Output 09/01/20 09/02/20 09/02/20 18:59 06:59 18:59 Intake Total 480 120 Output Total 250 275 Balance 230 -275 120 Weight 125.1 kg Intake: Oral 480 120 Output: Urine 250 275 Other: Voiding Method Urinal Toilet Toilet Urinal Urinal # Voids 1 # Bowel Movements 1 ABP, PAP, CO, CI - Last Documented Arterial Blood Pressure 120/47 Pulmonary Artery Pressure 28/14 Cardiac Output 4.2 Cardiac Index 1.7 - Constitutional General appearance: Present: cooperative, no acute distress, obese - EENT Eyes: Present: anicteric sclerae, EOMI ENT: Present: hearing grossly normal - Respiratory Respiratory: bilateral: CTA - Cardiovascular Rhythm: regular Heart sounds: normal: S1, S2 Abnormal Heart Sounds: Absent: systolic murmur, diastolic murmur, rub, S3 Gallop, S4 Gallop, click, other - Gastrointestinal General gastrointestinal: Present: normal bowel sounds, soft. Absent: absent bowel sounds, decreased bowel sounds, distended, hepatomegaly, hyperactive bowel sounds, organomegaly, rigid, scaphoid, splenomegaly, tenderness, umbilical hernia, ventral hernia - Neurologic Neurologic: Present: CNII-XII intact - Musculoskeletal Musculoskeletal: Present: strength equal bilaterally - Psychiatric Psychiatric: Present: A&O x's 3, appropriate affect, intact judgment & insight - Labs CBC & Chem 7: 09/02/20 07:35 09/02/20 07:35 Labs: Abnormal Lab Results - Last 24 Hours (Table) 09/01/20 09/01/20 09/01/20 Range/Units 06:30 17:16 19:20 WBC 25.3 H (3.8-10.6) k/uL RBC 4.18 L (4.30-5.90) m/uL Hgb 12.8 L (13.0-17.5) gm/dL Neutrophils # (Manual) 10.30 H (1.3-7.7) k/uL Lymphocytes # (Manual) 13.92 H (1.0-4.8) k/uL Monocytes # (Manual) (0-1.0) k/uL Basophils # (Manual) 0.25 H (0-0.2) k/uL Sodium (137-145) mmol/L BUN (9-20) mg/dL Glucose (74-99) mg/dL POC Glucose (mg/dL) 122 H (75-99) mg/dL Procalcitonin 0.19 H (0.02-0.09) ng/mL 09/01/20 09/02/20 09/02/20 Range/Units 20:57 06:04 07:35 WBC 24.9 H (3.8-10.6) k/uL RBC 4.13 L (4.30-5.90) m/uL Hgb (13.0-17.5) gm/dL Neutrophils # (Manual) 15.94 H (1.3-7.7) k/uL Lymphocytes # (Manual) 6.72 H (1.0-4.8) k/uL Monocytes # (Manual) 2.24 H (0-1.0) k/uL Basophils # (Manual) (0-0.2) k/uL Sodium (137-145) mmol/L BUN (9-20) mg/dL Glucose (74-99) mg/dL POC Glucose (mg/dL) 105 H 107 H (75-99) mg/dL Procalcitonin (0.02-0.09) ng/mL 09/02/20 09/02/20 Range/Units 07:35 11:36 WBC (3.8-10.6) k/uL RBC (4.30-5.90) m/uL Hgb (13.0-17.5) gm/dL Neutrophils # (Manual) (1.3-7.7) k/uL Lymphocytes # (Manual) (1.0-4.8) k/uL Monocytes # (Manual) (0-1.0) k/uL Basophils # (Manual) (0-0.2) k/uL Sodium 135 L (137-145) mmol/L BUN 34 H (9-20) mg/dL Glucose 118 H (74-99) mg/dL POC Glucose (mg/dL) 120 H (75-99) mg/dL Procalcitonin (0.02-0.09) ng/mL Assessment and Plan (1) Leukocytosis Narrative/Plan: Peripheral smear results pending. Flow cytometry for lymphocytes ordered. F/U with HemOnc in 3 weeks Status: Acute Priority: Medium Code(s): D72.829 - ELEVATED WHITE BLOOD CELL COUNT, UNSPECIFIED SNOMED Code(s): 230454231 Plan: Attests: I have seen and examined pt, performed H&P and developed impression and plan of care. Discussed with dictator, agree with documentation. Documented as a scribe.
--- NOTE | 2020-09-03 09:26 | P.VSCSTY ---
Greater Saphenous Vein Mapping This is bilateral lower extremity greater saphenous vein mapping. Date of service: 08/28/2020 Vein quality and ultrasound appearance: We see no intraluminal thrombus or obvious wall changes. Vein size in millimeters groin right : 8.3 x 7 groin left: 6.4 x 6.6 High thigh right: 4.0 x 4.3 high thigh left: 5.8 x 4.9 Mid thigh right: 4.4 x 4.1 mid thigh left: 4.3 x 3.8 Above-knee right: 4.9 x 4.2 above-knee left: 3.9 x 3.5 Below knee right: 5.6 x 5.6 below-knee left: 4.8 x 4.1 Mid calf right: 4.5 x 3.4 mid calf left: 3.5 x 2.6 Ankle right: 3.7 x 3.1 ankle left: 4.4 x 3.3 Impression: Greater saphenous vein appears usable bilaterally.
== END 2020-09-02 15:25 | disposition home health service (06) | DRG 233 ==
LOC: EC 14:45 → 3SCARD 16:55 → 2SICU 08-29 07:07 → 3SCARD 08-31 17:17
PROVIDERS: ADMIT Thoracic Surgery (Cardiothoracic Vascular Surgery); ATTEND Thoracic Surgery (Cardiothoracic Vascular Surgery)
PROC: 4A023N7 Measurement of Cardiac Sampling and Pressure, Left Heart, Percutaneous Approach (ICD-10-PCS; 2020-08-28)
PROC: B54DZZZ Ultrasonography of Bilateral Lower Extremity Veins (ICD-10-PCS; 2020-08-28)
PROC: B2111ZZ Fluoroscopy of Multiple Coronary Arteries using Low Osmolar Contrast (ICD-10-PCS; 2020-08-28)
PROC: 06BP4ZZ Excision of Right Saphenous Vein, Percutaneous Endoscopic Approach (ICD-10-PCS; 2020-08-29)
PROC: 02L70CK Occlusion of Left Atrial Appendage with Extraluminal Device, Open Approach (ICD-10-PCS; 2020-08-29)
PROC: 5A1221Z Performance of Cardiac Output, Continuous (ICD-10-PCS; 2020-08-29)
PROC: 02100Z9 Bypass Coronary Artery, One Artery from Left Internal Mammary, Open Approach (ICD-10-PCS; principal; 2020-08-29 07:30)
PROC: 021109W Bypass Coronary Artery, Two Arteries from Aorta with Autologous Venous Tissue, Open Approach (ICD-10-PCS; 2020-08-29 07:30)
DX: I25.119 Atherosclerotic heart disease of native coronary artery with unspecified angina pectoris (principal); I50.23 Acute on chronic systolic (congestive) heart failure; I47.2 Ventricular tachycardia; J98.11 Atelectasis; R00.2 Palpitations; E11.9 Type 2 diabetes mellitus without complications; E78.5 Hyperlipidemia, unspecified; I48.0 Paroxysmal atrial fibrillation; I49.3 Ventricular premature depolarization; E66.9 Obesity, unspecified; Z68.35 Body mass index [BMI] 35.0-35.9, adult; Z90.49 Acquired absence of other specified parts of digestive tract; I25.5 Ischemic cardiomyopathy; Z86.718 Personal history of other venous thrombosis and embolism; I00 Rheumatic fever without heart involvement; Z82.49 Family history of ischemic heart disease and other diseases of the circulatory system; Z82.3 Family history of stroke; D72.820 Lymphocytosis (symptomatic); Z20.822 Contact with and (suspected) exposure to COVID-19; I11.0 Hypertensive heart disease with heart failure; E87.5 Hyperkalemia; T50.2X5A Adverse effect of carbonic-anhydrase inhibitors, benzothiadiazides and other diuretics, initial encounter; D69.59 Other secondary thrombocytopenia; I25.82 Chronic total occlusion of coronary artery; T46.4X5A Adverse effect of angiotensin-converting-enzyme inhibitors, initial encounter; Z79.899 Other long term (current) drug therapy; Z88.8 Allergy status to other drugs, medicaments and biological substances
CPT/HCPCS: 36415; 71045; 71046; 80048; 80053; 80061; 80074; 81003; 82330; 82805; 83036; 83735; 83880; 84132; 84145; 84443; 84484; 85025; 85027; 85520; 85610; 85730; 86850; 86891; 86900; 86901; 86920; 87070; 87635; 93005; 93306; 93458; 93880; 93970; 94002; 94640; 94760; 96374; 99285

== ENCOUNTER → 2020-09-08 | Outpatient (CLI) | payer MEDICARE ==
--- NOTE | 2020-09-08 16:28 | CONS ---
CONSULTATION DATE OF SERVICE 08/28/20 I have seen, examined, and agree with the midlevel's findings. MMODL / IJN: [id number] / -16
[2020-09-09 01:11] LABS: Basophils # (M) 0 X 10*3/uL (0.00-0.10); Eosinophils # (M) 0 X 10*3/uL (0.04-0.35); HCT 45.8 % (39.6-50.0); HGB 14.9 g/dL (13.0-17.0); Lymphocytes # (M) 19.35 X 10*3/uL (0.90-5.00); MCH 31.1 pg (27.0-32.0); MCHC 32.5 g/dL (32.0-37.0); MCV 95.6 fL (80.0-97.0); Mean Platelet Volume 10.1 fL (9.5-12.2); Monocytes # (M) 2.66 X 10*3/uL (0.20-1.00); Neutrophils # (M) 15.94 X 10*3/uL (2.00-8.90); Neutrophils % (M) 42 %; Platelet Count 475 X 10*3/uL (140-440); RBC 4.79 X 10*6/uL (4.40-5.60); RDW 14.6 % (11.5-14.5); WBC 37.95 X 10*3/uL (4.50-10.00)
[2020-09-09 03:00] LABS: African American GFR (CKD) 74.1 (60.0-200.0); Albumin 4.4 g/dL (3.80-4.90); Albumin/Globulin Ratio 1.91 (1.60-3.17); BUN/Creat Ratio 19.09 Ratio (12.00-20.00); Calcium 9.3 mg/dL (8.7-10.3); Globulin 2.3 g/dL (1.6-3.3); Potassium 5.1 mmol/L (3.5-5.5); Total Bilirubin 1.2 mg/dL (0.2-1.2); Total Protein 6.7 g/dL (6.2-8.2)
== END | disposition home or self-care (01) ==
LOC: LABWHC1 15:22
PROVIDERS: ATTEND Nurse Practitioner Acute Care
DX: I25.10 Atherosclerotic heart disease of native coronary artery without angina pectoris (principal); I35.0 Nonrheumatic aortic (valve) stenosis
CPT/HCPCS: 36415; 80053; 85025

== ENCOUNTER → 2020-12-04 | Outpatient (CLI) | payer MEDICARE ==
--- NOTE | 2020-12-04 13:43 | CT ---
EXAMINATION TYPE: CT ChestAbdPelvis w con DATE OF EXAM: 12/04/2020 COMPARISON: None. HISTORY: Lymphadenopathy. ELevated WBCs per pt. CT DLP: 2083.3 mGycm. Automated Exposure Control for Dose Reduction was Utilized. CONTRAST: CT scan of the thorax, abdomen and pelvis is performed with oral and with IV Contrast, patient inject ed with 100 mL of Isovue M300. FINDINGS: LUNGS: [id number] bibasilar linear scarring and/or atelectasis. Few small subpleural nodules ri ght mid lung measure under 4 mm in size . No suspicious focal consolidation. There is no pleural effu jose or pneumothorax seen. The tracheobronchial tree is patent. Small right posterior medial diaphra gmatic hernia sagittal image 56. MEDIASTINUM: Post CABG changes with mediastinal clips and sternal wires. 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 No cardiomegaly or pericardial effusion. No suspicious thoracic adenopathy. LIVER/GB: No significant abnormality is appreciated. PANCREAS: No significant abnormality is seen. SPLEEN: No significant abnormality is seen. ADRENALS: No significant abnormality is seen. KIDNEYS: Symmetric cortical thinning bilaterally. No hydronephrosis seen bilaterally. BOWEL: Oral contrast reaches the transverse colon level. No suspicious small or large bowel dilatatio n. Few scattered diverticula throughout the left and sigmoid colon. GENITAL ORGANS: Enlarged prostate consistent with BPH. LYMPH NODES: No greater than 1cm abdominal or pelvic lymph nodes are appreciated. OSSEOUS STRUCTURES: Mild to moderate disc space narrowing with vacuum disc phenomenon L5-S1 level. OTHER: Moderate mixed plaque in the aorta extends into branch vessels. 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 IMPRESSION: No abnormal adenopathy. 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 No acute inflammatory process otherwise identified.
== END | disposition home or self-care (01) ==
LOC: RADCTMAIN 10:50
PROVIDERS: ATTEND Internal Medicine Hematology & Oncology
DX: R59.0 Localized enlarged lymph nodes (principal); E11.9 Type 2 diabetes mellitus without complications
CPT/HCPCS: 82565; 84520; 71260; 74177; 36415; Q9967 ×2